=== PATIENT | male | born 1945 | race Caucasian/White ===

== ENCOUNTER 2020-04-13 13:18 | Outpatient (CLI) | payer MEDICARE, BC, SELFPAY ==
--- NOTE | 2020-04-13 13:27 | XR_ITS ---
WS: [id number] CERVICAL SPINE 3 VIEWS HISTORY: SPINAL STENOSIS, CERVICAL REGION COMPARISON: None available. Mild straightening of the normal cervical lordosis. C2 anterolisthesis by 3.4 mm. Prior anterior cerv ical fusion with interbody spacer at C6-7. Large bridging hypertrophic osteophytes along the anterior cervical spine from C3 to C5 extends over a length of 5.1 cm. There is mild disc space narrowing at C3-4, C4-5 and C5-6. Lateral masses of C1 and C2 are aligned. Odontoid is intact. Soft tissues are normal. XR/XR cervical spine 3V* [id number] IMPRESSION: 1. Intact anterior cervical fusion with interbody spacer at C6-7. 2. Large bridging hypertrophic osteophytes along the anterior longitudinal lig ament from C3 to C5. 3. C2 anterolisthesis by 3.4 mm.
== END 2020-04-13 13:19 | disposition home or self-care (01) ==
LOC: RADWPI 13:24
PROVIDERS: PCP Family Medicine; Visit Provider Physician Assistant
DX: M48.02 Spinal stenosis, cervical region (principal); M43.22 Fusion of spine, cervical region; M25.78 Osteophyte, vertebrae
CPT/HCPCS: 72040

== ENCOUNTER 2020-06-03 08:45 | Outpatient (CLI) | payer MEDICARE, BC, SELFPAY ==
[2020-06-03 09:18] VITALS: BMI 31.3
--- NOTE | 2020-06-03 09:18 | ECG_ITS ---
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 Interpretive Statements Lexiscan/sestamibi/sestamibi stress test: PROCEDURE: At the baseline, the EKG revealed normal sinus rhythm with incomplete right bundle branch block pattern. No significant ST-T changes. The baseline blood pressure was 146/77 mm Hg with a heart rate of 68 beats/min. Lexiscan was infused over a period of 20 seconds. A total of 0.4 milligrams of Lexiscan was infused. The stress phase was continued for a total of 5 minutes. Heart rate at the end of the stress phase was 77 with a blood pressure 128/70. The EKG at the peak infusion revealed no significant changes. Sestamibi was injected 20 seconds after the Lexiscan infusion. Blood pressure at the end of the recovery phase was 144/71 with a heart rate of 77 per minute. CONCLUSION: 1. No significant EKG changes with the LexiScan infusion 2. No LexiScan induced chest pain or cardiac arrhythmia 3. Normal blood pressure and heart rate response 4. Sestamibi/sestamibi perfusion scan pending; see separate report. Electronically Signed On 06-03-2020 20:28:34 PERSONNEL ASSOCIATE by Zack Shelby M.D. [email or web address]
--- NOTE | 2020-06-03 09:19 | NMCV_ITS ---
NM sumeet perf SPECT r/s* [id number] Magen Juarez Age: 74 Gender: M : 1945 Exam Date: 06/03/2020 10:41 Ordering Phys: Murali Cummings MD Technologist: LENNOX Ayon Exam Location: [facility] Indications: WORSENING DYSPNEA ON EXERTION STRESS TEST Please see separate stress test report in [facility] for full findings IMAGE PROTOCOL Rest/Stress 1 Lexiscan Day Radiopharmaceutical Dose (mCi) Administration Site Administered by Rest: Tc-99m 10.8 IV LENNOX Torres Sestamibi Stress:Tc-99m 32.4 IV LENNOX Torres Sestamibi Rest: 03-Jun-2020 60 Discovery 630 Stress: 03-Jun-2020 30 Discovery 630 0.4mg Lexiscan. Supine position only as patient was unable to lay prone. SPECT RESULTS Technical Quality: Good Raw Data Analysis: Normal Image Corrections: Patient motion artifact - motion correction applied to stress images. Summed Stress Score: 4 Summed Rest Score: 0 Summed Difference Score: 4 PERFUSION FINDINGS Moderate area of decreased aseptic was noted in the basal and mid inferolateral , mid inferior segments. Significant reversibility was noted in these regions at rest. FUNCTIONAL RESULTS (calculated via Gated SPECT) Stress Image LV EF (%): 83 Stress EDV (mL):66 TID: 0.97 Stress ESV (mL):11 FUNCTIONAL FINDINGS: Segmental wall motion analysis revealing no significant wall motion normalities. IMPRESSIONS 1. Myocardial perfusion imaging revealing a moderate area of reversible defect in the inferolateral region, suggestive of ischemia in the distribution of the left circumflex artery. 2. Normal LV ejection fraction of 83%. 3. LV wall motion analysis revealing no gross wall motion normalities. 4. Normal LV volume. No similar previous studies are available for comparison Dr Zack Shelby MD [facility] (Electronically Signed) Final Date: 09 June 2020 02:00 S
[2020-06-03 11:08] VITALS: BP 147/66; PULSE 89
[2020-06-03] MEDS: regadenoson 0.4 Mg/5 ml Syringe IVP (11:08)
== END 2020-06-03 08:46 | disposition home or self-care (01) ==
LOC: CDL 08:48
PROVIDERS: PCP Family Medicine; Visit Provider Family Medicine
DX: R06.09 Other forms of dyspnea (principal)
CPT/HCPCS: 78452; 93017; A9500; J2785

== ENCOUNTER → 2020-06-13 10:28 | Outpatient (BNVA) | payer MEDICARE, BC, SELFPAY | PROVIDERS: PCP Family Medicine; Visit Provider Internal Medicine | DX: Z20.828 Contact with and (suspected) exposure to other viral communicable diseases (principal); Z01.812 Encounter for preprocedural laboratory examination | CPT/HCPCS: 87635 ==

== ENCOUNTER 2020-06-15 08:31 | Outpatient (CLI) | payer MEDICARE, BC, SELFPAY ==
[2020-06-15 09:57] LABS: Basophils # 0.1 10^3/uL (0.0-0.1); Basophils % 1.1 %; Eosinophils # 0.3 10^3/uL (0.0-0.8); Eosinophils % 4.4 %; Hematocrit 47.6 % (42.0-52.0); Hemoglobin 15.2 g/dL (11.7-16.6); Lymphocytes % 32.4 %; Mean Corpuscular HGB Conc 31.9 g/dL (30.0-36.0); Mean Corpuscular Hemoglobin 29.1 pg (28.0-34.0); Mean Corpuscular Volume 91.2 fL (80-94); Mean Platelet Volume 9.8 fL (7.4-10.4); Monocytes # 0.6 10^3/uL (0.2-0.9); Monocytes % 9.7 %; Neutrophils # 3.29 10^3/uL (1.8-7.7); Neutrophils % 52.2 %; Nucleated Red Blood Cells % 0 %; Platelet Count 219 10^3/cmm (130-400); Red Blood Count 5.22 10^6/uL (4.1-5.3); Red Cell Distribution Width 13.4 % (12.1-15.1); White Blood Count 6.3 10^3/uL (4.0-10.0)
[2020-06-15 10:05] LABS: INR 0.95 (0.8-1.2)
[2020-06-15 10:13] LABS: Anion Gap 14.3 (5-19); Blood Urea Nitrogen 19 mg/dL (8-23); Calcium 9.5 mg/dL (8.5-10.5); Carbon Dioxide 29 mmol/L (22-29); Chloride 103 mmol/L (98-107); Glucose 107 mg/dL (65-115); Osmolality Calculated 297 mOsm/kg (285-295); Potassium 4.3 mmol/L (3.5-5.1); Sodium 142 mmol/L (136-145)
== END 2020-06-15 08:32 | disposition home or self-care (01) ==
PROVIDERS: PCP Family Medicine; Visit Provider Internal Medicine
DX: R06.02 Shortness of breath (principal); R07.9 Chest pain, unspecified
CPT/HCPCS: 36415; 80048; 85025; 85610

== ENCOUNTER 2020-06-16 07:10 | Day surgery (SDC) | payer MEDICARE, BC, SELFPAY ==
[2020-06-16] VITALS (20 sets, daily range): BP systolic 97–144; BP diastolic 60–87; PULSE 59–83; RESP 12–20; TEMP 36.5–36.7; O2SAT 92–98; BMI 31.0
--- NOTE | 2020-06-16 07:30 | XACV_ITS ---
Exam Room: 1 Ht: 170 cm Wt: 90 kg BSA: 2.09 m2 Gender: Male : 1945 Any Known Allergies: No known allergies Exam Priority: Routine Procedure(s): Procedure Description: Diagnostic procedure Procedure Description: PCI procedure Procedure Description: Drug Eluting Coronary Stent Procedure Description: PTCA Procedure Description: Coronary Angiography Diagnostic Cath Status: Elective Diagnostic Findings * LAD has luminal irregularities.. * RCA arises from right coronary cusp. It has luminal irregularities however no significant stenosis seen. . * Left circumflex artery arises from left main artery. It gives rise to 2 OM branches. At bifurcation of left circumflex artery and OM 2, there is severe 70% stenosis in mid left circumflex artery. Ostial OM 2 also has 60 to 70% stenosis. Mid Circumflex Coronary Artery: Moderate 70% stenosis, JAMES: 0 flow. * Second * obtuse Marginal Branch Segment: Moderate 60% stenosis, JAMES: 0 flow. * LM has 0% stenosis. * Coronary angiography shows right dominance. PCI Status: Elective PCI Indication: New Onset Angina <= 2 months Interventional Findings * We engaged the left main artery using XB 3.5 guide catheter. A 0.014 run-through guidewire was used to cross the mid left circumflex stenosis and was put in distal OM 3 branch. A 0.014 BMW guidewire was used to cross the ostial OM 2 stenosis and was put in the distal branch. We used a 2.5 x 8 mm semicompliant balloon to predilate the mid left circumflex stenosis. This was followed by placement of 3.0 x 15 mm resolute [place] TARA. Ostial OM1 stenosis was then treated using a 2.0 x 8 mm semicompliant balloon. At this time final angiogram was performed that showed excellent stent expansion no residual stenosis and JAMES-3 flow. Ostial OM 2 stenosis was significantly improved and there was JAMES-3 flow in the vessel. Guidewires were removed. Guide catheter was removed. TR band was applied to achieve hemostasis. Patient left the Freight Forwarder in stable condition.. * Mid Circumflex Coronary Artery: 70% stenosis treated with AB TREK 2.50X8 RX BALLOON and MDT R BUDDY 3.0X15 TARA. 0% residual stenosis, JAMES: 3 flow. * First Obtuse Marginal Branch Segment: 60% stenosis treated with AB MINI TREK 2.00X8 RX BALLOON. 0% residual stenosis, JAMES: 3 flow. Conclusions 1. There is severe coronary artery disease with mid left circumflex stenosis. This correlated with abnormal stress test territory. 2. Mid Circumflex Coronary Artery was treated with Balloon and Drug Eluting Stent. 3. First Obtuse Marginal Branch Segment was treated with Balloon. Recommendations * Continue aspirin and plavix for atleast 1 year. * High intensity statin therapy. * Beta rayne. * Patient will need to postpone his knee surgery. Will discuss the appropriate time for surgery as patient needs Dual antiplatelet therapy. Interventional RX Recommendation: PCI w/o planned CABG Diagnostic RX Recommendation: PCI w/o planned CABG Anticoagulation: Heparin Pressures Phase:Rest AO : 133 / 83 ( 107 ) @ 2:02:00 AM 129 / 79 ( 103 ) @ 2:04:00 AM 148 / 62 ( 104 ) @ 2:13:00 AM 138 / 134 ( 103 ) @ 2:15:00 AM 142 / 80 ( 109 ) @ 2:16:00 AM 128 / 74 ( 98 ) @ 2:21:00 AM 128 / 73 ( 97 ) @ 2:33:00 AM 146 / 127 ( 114 ) @ 2:38:00 AM 130 / 80 ( 99 ) @ 2:41:00 AM 113 / 112 ( 91 ) @ 2:50:00 AM 136 / 80 ( 107 ) @ 2:52:00 AM Clinical Evaluation EBL: 5mL-10mL Procedural Details Procedure Consent Obtained. Current Diagnosis : Chest Pain. Pre-Procedure Time Out. Identified patient by full name and date of as verbalized by the patient/guarantor. Does the consent match the physician's order: Yes. Accurate & Complete Informed Consent: Yes. Inpatient/Outpatient History & Physical on Chart: Yes. If H&P is completed, is and addenduem needed: No; If yes, is the addendum complete: N/A. Visualize and Verify Site with Patient/Guarantor: N/A. Relevant Radiology Images available: Yes. Pre-op teaching completed and patient verbalized understanding. The risks, benefits, and alternatives of sedation and/or procedure were discussed by physician. The patient agrees to continue. Procedure started. [facility] Clinical Fraility Score: 3: Managing Well. Freight Forwarder Indications: Suspected CAD. Chest Pain Symptom Assessment: Typical Angina Symptoms. Correct patient, site and procedure confirmed by cath team. Current diagnosis: Chest Pain. PERRLA. Strong, equal hand board layer bilaterally. Lungs clear x 5 lobes. IV Site on Arrival: 20 gauge in the left anticubital. IV Fluids: 0.9% NaCl at KVO. 0 mL infused prior to cardiac catheterization technician. Pre Procedural Pulses: bilateral posterior tibial was 3+. Pre Procedural Pulses: bilateral dorsalis pedis was 3+. Pre Procedural Pulses: bilateral radial was 3+. Oxygen started at 2liters/min via nasal canula. right groin was prepped with chloroprep then draped in the usual sterile fashion. right radial was prepped with chloroprep then draped in the usual sterile fashion. Baseline sample Acquired. HR: 104 BPM. Physician arrived. Physician scrubbed in. Immediate Pre-Procedure Time Out. Correct Patient: Yes; Correct Procedure: Yes; Correct Site: Yes; Correct Patient Position: Yes; Correct Supplies: Yes; Dried Flammable Prep: Yes; Blood Products Available: N/A;. Lidocaine 1% infiltrated to the right radial. Arterial access obtained. 5 mL contrast hand injection performed through the radial sheath. A 5 niuean TIG catheter in over glidewire. Inventory is TR Glidewire Angled Stiff Shaft .035 260cm. Multiple views taken of left coronary artery. Catheter redirected to the RCA. Multiple views taken of right coronary artery. Catheter removed over the exchange wire. Sheath upsized to a 6 Fr. Physician review of cine films. 6 niuean XB 3.5 guide catheter was inserted over the wire. Runthrough guidewire was advanced through the guide catheter to lesion in the mid Circ. Patient's family updated. BMW guidewire was advanced through the guide catheter to lesion in the OM. Inflation number : 1 A AB TREK 2.50X8 RX BALLOON was prepped and advanced across the Mid CX , then inflated to 12 JODI for 0:25 seconds. Inflation number: 2 The AB TREK 2.50X8 RX BALLOON was reinflated across the Mid CX, to 14 JODI for 0:22 seconds. Intact stent and BMW wire out. BMW guidewire was advanced through the guide catheter to lesion in the OM. BMW wire pulled back in the catheter. Inflation Number : 3 A MOI Purvis BUDDY 3.0X15 TARA -Lot Number# _[id number] Exp: 03/04/2022 was prepped and advanced across the Mid CX. The stent was deployed at 12 JODI for 0:30 seconds. Stent balloon out over wire. BMW guidewire was advanced through the guide catheter to lesion in the OM. Trek 2.5x8 balloon inserted OTW. Runthough wire out. Balloon out. Inflation number : 1 A AB MINI TREK 2.00X8 RX BALLOON was prepped and advanced across the 1st Ob Afua , then inflated to 10 JODI for 0:33 seconds. Results checked. Results checked. Physician review of cine films. The sheath flushed with heparnized saline periodically to maintain patency. Balloon out. Wire out. Guide catheter out. Dr. Tolentino scrubbed out. TR band placed. Hemostasis obtained. Post Procedure: Pulses reassessed and unchanged. PERRLA. Strong, equal hand board layer bilaterally. No VTE prophylaxis required. Medication's Wasted: Lidocaine 1% = 18 mL. Medication's Wasted: Nitro = 49.8 mcg. Medication's Wasted: Heparin = 1000 units. Total IV fluids: 100 mL. Contrast type used: Omnipaque 300 mgI/mL, 500 mL bottle. A TR Band was successful obtaining hemostatsis at the Radial artery insertion site. Post-op diagnosis: Stent to Mid CX. Complications: None. Estimated blood loss: 5mL-10mL. Procedure completed. Patient transferred by wheelchair to CPRU. Vital chart was stopped. Access Site Site: Radial artery Sheath Size: 5 Fr Hemostasis Method: TR Band Hemostasis Success: Successful Procedure Medications Start: 7:46 AM Stop: 7:46 AM Medication: Versed Amount: 1 mg Route: I.V. Start: 7:46 AM Stop: 7:46 AM Medication: Fentanyl Amount: 50 mcg Route: I.V. Start: 7:54 AM Stop: 7:54 AM Medication: Verapamil Amount: 5 mg Route: I.A. Start: 7:54 AM Stop: 7:54 AM Medication: Nitrogylcerin Amount: 200 mcg Route: I.A. Start: 7:58 AM Stop: 7:58 AM Medication: Heparin Amount: 3000 units Route: I.V. Start: 8:12 AM Stop: 8:12 AM Medication: Heparin Amount: 6000 units Route: I.V. Start: 8:12 AM Stop: 8:12 AM Medication: Versed Amount: 1 mg Route: I.V. Start: 8:29 AM Stop: 8:29 AM Medication: Fentanyl Amount: 50 mcg Route: I.V. Start: 8:33 AM Stop: 8:33 AM Medication: Heparin Amount: 15356 units Route: I.V. Start: 8:41 AM Stop: 8:41 AM Medication: Versed Amount: 1 mg Route: I.V. Start: 8:48 AM Stop: 8:48 AM Medication: Nitrogylcerin Amount: 200 mcg Route: I.C. Start: 8:50 AM Stop: 8:50 AM Medication: Versed Amount: 1 mg Route: I.V. Start: 8:56 AM Stop: 8:56 AM Medication: 0.9% Saline Amount: 275 ml/hr Route: I.V. drip Start: 8:56 AM Stop: 8:56 AM Medication: Plavix Amount: 600 mg Route: P.O. I, the attending physician, have reviewed and verified all procedure medications. Yes, all medications given per verbal order History/Risk Factors Hypertension: Yes Dyslipidemia: No Peripheral Arterial Disease (PAD): No Myocardial Infarction (AL): No Obesity: No Renal Disease: No Tobacco Use: Never Prior Interventions PCI: No CABG: No Valve Surgery: No Report Signatures Finalized by Kishor Tolentino MD on 06/21/2020 06:17 PM
[2020-06-16] MEDS: diphenhydrAMINE 50 mg Capsule PO (07:35)
--- NOTE | 2020-06-16 07:40 | W.PM.OPSUD ---
Surgery/Procedure H&P Update DATE OF PROCEDURE: June 16, 2020 DATE H&P PERFORMED: 06/09/20 H&P UPDATE INFORMATION: I have reviewed H&P completed within last 30 days, I have examined patient prior to procedure and No changes to prior documentation PREOP DIAGNOSIS: Worsening angina/abnormal stress test PRIMARY INDICATION FOR PROCEDURE: Worsening angina/abnormal stress test PLANNED PROCEDURE: Operation Date: 06/16/20 08:30 Proposed Procedures p Left Cardiac Catheterization 90548 R07.89(Left) - Kishor Tolentino M.D PATIENT REASSESSED PRIOR TO SEDATION, WITH NO CHANGE NOTED: No PHYSICAL EXAM: alert, oriented x 3, clear to auscultation bilaterally and regular rate & rhythm AIRWAY EVAL/ANESTHESIA PLAN: ASA II, Risks, benefits & alternatives of sedation and/or procedure discussed and Patient agrees to continue as planned
--- NOTE | 2020-06-16 09:00 | SUR.PHASEI ---
POST OP FLUIDS NS AT 100ML/HR
--- NOTE | 2020-06-16 09:00 | SUR.PHASEI ---
POST CATH NOTE RECEIVED THE PATIENT BACK FROM THE FIELD TECHNICIAN VIA WHEELCHAIR POST INTERVENTION OF THE MID CX. PATIENT AMBULATED WITH THE USE OF HIS CANE TO THE BED. COMPUTER OPERATIONS ANALYST PLACED AND VITAL SIGNS OBTAINED. TR BAND INTACT TO THE RIGHT RADIAL. NO BLEEDING OR HEMATOMA NOTED. SITE SOFT WITH PALPABLE PULSE. PATIENT ALERT BUT DROWSY FROM SEDATION. WAKES UP EASILY TO VERBAL STIMULI. NO OTHER ASSESSMENT CHANGES NOTED FROM PRE CATH ASSESSMENT. DR DOVE AT BEDSIDE TO UPDATE PATIENT. WILL CONTINUE TO MONITOR.
--- NOTE | 2020-06-16 10:00 | SUR.PHASEI ---
TR BAND LETTING THE AIR OUT OF THE TR BAND PER PROTOCOL. NO OTHER CHANGES NOTED AT THIS TIME.
--- NOTE | 2020-06-16 10:02 | SUR.PHASEI ---
SPOUSE UPDATED THE PATIENT'S SPOUSE, YRIS, WAS CALLED AND NOTIFIED OF THE CURRENT VISITING TIMES.
--- NOTE | 2020-06-16 10:08 | SUR.PHASEI ---
AMBULATED TO RESTROOM
--- NOTE | 2020-06-16 11:05 | SUR.PHASEI ---
TR BAND REMOVAL THE PATIENT AMBULATED TO THE RESTROOM. ONCE BACK TO THE ROOM THE TR BAND WAS REMOVED WITH NO BLEEDING OR HEMATOMA NOTED. SITE CLEANSED WITH WARM WATER AND PATTED DRY. A LARGE BAND AID WAS APPLIED TO THE WRIST AND SECURED LIGHTLY WITH COBAN. THE PATIENT TOLERATED WELL AND IS NOW UP AT THE BEDSIDE EATING LUNCH. POST TR BAND REMOVAL ACTIVITY INSTRUCTION RE ITERATED TO THE PATIENT WITH HIS VERBALIZATION OF UNDERSTANDING.
--- NOTE | 2020-06-16 12:26 | SUR.PHASEI ---
SPOUSE AT BEDSIDE UPDATE GIVEN TO THE PATIENT AND SPOUSE ABOUT TRANSFER TO ANOTHER ROOM WHEN A BED BECOMES AVAILABLE.
--- NOTE | 2020-06-16 16:02 | SUR.PHASEI ---
ROUNDING NOTE NO ASSESSMENT CHANGES NOTED THROUGHOUT THE AFTERNOON. PATIENT HAS BEEN UP AMBULATING SEVERAL TIMES TO THE RESTROOM. VITAL SIGNS AND RIGHT WRIST HAVE REMAINED STABLE. WILL TRANSFER TO ROOM 254-1 SOON THE ROOM IS CLEAN. SPOUSE AT BEDSIDE.
--- NOTE | 2020-06-16 16:16 | SUR.PHASEI ---
REPORT CALLED REPORT CALLED TO TATIANA CHE. PATIENT THEN TRANSFERRED TO [facility] VIA WHEELCHAIR. DR DOVE NOTIFIED OF THE ROOM ASSIGNMENT.
[2020-06-16] MEDS: atorvastatin 40 mg Tablet PO (20:44)
--- NOTE | 2020-06-17 05:15 | PC.NURSE ---
Summary Patient rested very well through out night. No pain. Voided in urinal 3x. No complaints.
[2020-06-17 05:43] VITALS: PULSE 71
[2020-06-17 05:45] LABS: Basophils # 0.1 10^3/uL (0.0-0.1); Basophils % 0.7 %; Eosinophils # 0.3 10^3/uL (0.0-0.8); Eosinophils % 3.8 %; Hematocrit 47.5 % (42.0-52.0); Hemoglobin 15.2 g/dL (11.7-16.6); Lymphocytes # 1.7 10^3/uL (0.8-4.8); Lymphocytes % 23.1 %; Mean Corpuscular Hemoglobin 29.1 pg (28.0-34.0); Mean Corpuscular Volume 90.8 fL (80-94); Mean Platelet Volume 9.9 fL (7.4-10.4); Monocytes # 0.8 10^3/uL (0.2-0.9); Monocytes % 10.4 %; Neutrophils # 4.43 10^3/uL (1.8-7.7); Neutrophils % 61.7 %; Nucleated Red Blood Cells % 0 %; Platelet Count 202 10^3/cmm (130-400); Red Blood Count 5.23 10^6/uL (4.1-5.3); Red Cell Distribution Width 13.6 % (12.1-15.1); White Blood Count 7.2 10^3/uL (4.0-10.0)
[2020-06-17 06:22] LABS: Blood Urea Nitrogen 15 mg/dL (8-23); Carbon Dioxide 28 mmol/L (22-29); Chloride 102 mmol/L (98-107); Sodium 139 mmol/L (136-145)
[2020-06-17 06:23] LABS: Calcium 9.3 mg/dL (8.5-10.5); Glucose 96 mg/dL (65-115); Osmolality Calculated 289 mOsm/kg (285-295)
[2020-06-17 07:52] VITALS: BP 117/75; PULSE 69; RESP 18; TEMP 36.9; O2SAT 97
--- NOTE | 2020-06-17 08:59 | P.SS_ITS ---
Short Stay Summary Providers Date of Admit/Discharge: 06/17/20 Attending Provider: Kishor Tolentino M.D Primary Care Provider: Murali Cummings MD Chief Complaint: Left Cardiac Catheterization HPI History of Present Illness Magen Juarez is a 74 year old male with past medical history of hypertension, former smoker who was referred to cardiology by his PCP, Dr Cummings. Patient was experiencing worsening shortness of breath and chest pressure over the last 3 to 4 weeks. Nuclear stress test was performed that showed ischemia in inferolateral wall. Patient underwent coronary angiography from right radial access yesterday that showed severe stenosis of the mid left circumflex artery/OM corresponding to the ischemic region on the stress test. He underwent successful revascularization with TARA X 1. Ostial OM lesion underwent balloon angioplasty. Patient did well post PCI and was discharged on post procedure day in a stable condition. Patient had a scheduled elective knee replacement surgery. Surgery will need to be postponed by atleast 6 months as patient needs dual antiplatelet agents for that duration. We will follow patient in the office. Review of Systems General: Reports: 10 or more systems reviewed and unremarkable except in HPI and below Const: Denies: fever(s), chills, body aches or fatigue Eyes: Denies: change in vision or blurry vision ENMT: Denies: throat pain or odynophagia Card: Reports: chest pain, lightheadedness and dyspnea on exertion; Denies: palpitations, irregular heart rhythm, swelling of feet/ankles, syncope, orthopnea or leg pain with exertion Resp: Denies: dyspnea, productive cough, non-productive cough or wheezing GI: Denies: nausea, vomiting or heartburn Musc: Denies: neck pain, back pain or joint pain Skin/Breast: Denies: rash or pruritus Neuro: Reports: dizziness; Denies: headache(s), numbness in extremities, weakness in extremities or vertigo Psych: Denies: anxiety or depression Bernardo/Lymph: Denies: easy bruising or easy bleeding Home Meds/Allergies Home Medications and Allergies Home Medications Medication Instructions Recorded Confirmed Type cetirizine 10 mg capsule 10 mg PO DAILY cap 06/09/20 06/15/20 History lisinopril 20 1 tab PO DAILY 06/09/20 06/15/20 History mg-hydrochlorothiazide 12.5 mg tablet pantoprazole 40 mg tablet,delayed 40 mg PO DAILY 06/09/20 06/15/20 History release Allergies Allergy/AdvReac Type Severity Reaction Status Date / Time No Known Allergies Allergy Verified 06/16/20 07:48 PFSH Acute PFSH: Medical History Hypertension Obesity Obstructive sleep apnea Surgical History History of carpal tunnel surgery History of knee replacement Family History Father CAD (coronary artery disease) Mother CAD (coronary artery disease) Social History Smoking and tobacco status: former smoker Vitals/I&O/Wt Last Vital Signs Temp 98.5 F 06/17/20 07:52 Pulse 69 06/17/20 07:52 Resp 18 06/17/20 07:52 BP 117/75 06/17/20 07:52 Pulse Ox 97 06/17/20 07:52 06/16/20 06/17/20 06/17/20 22:59 06:59 14:59 Intake Total 1870 / 1870 Output Total 425 / 425 750 / 1175 Balance 1445 / 1445 -750 / 695 Weight last 48 hrs Weight 198 lb Physical Exam Const: COMMON NORMALS: no acute distress and patient oriented x3 HENMT: COMMON NORMALS: normocephalic HEAD & SCALP: normocephalic Eye: COMMON NORMALS: Equal, round and reactive pupils present PUPIL: Yes Equal, round and reactive pupils present Resp: COMMON NORMALS: normal respiratory effort and clear to auscultation bilaterally AUSCULTATION: clear to auscultation bilaterally Cardio: COMMON NORMALS: regular rate, regular rhythm, S1 normal heart sound present, S2 normal heart sound present and No murmurs present (Cardio) RATE: regular rate RHYTHM: regular rhythm HEART SOUNDS: S1 normal heart sound present and S2 normal heart sound present GI: COMMON NORMALS: Normal to inspection, nondistended, normoactive bowel sounds present, Soft to palpation and non-tender PALPATION: Yes Soft to palpation Extremity: COMMON NORMALS: normal to inspection and no pedal edema Neuro: COMMON NORMALS: patient oriented x3 Psych: COMMON NORMALS: mental status grossly normal and cooperative SSS Data Data Completed and Pending: Pending at discharge Category Date Time Status MANAGER CORPORATE RESPONSIBILITY request for service Routin e Exams 06/16/20 07:30 Taken Discharge Plan Discharge Patient Disposition: Home Condition: Stable Prescriptions: New atorvastatin 40 mg Tablet 40 mg PO BEDTIME Qty: 90 RF: 3 clopidogrel 75 mg Tablet 75 mg PO DAILY Qty: 90 RF: 3 Continued pantoprazole 40 mg tablet,delayed release (DR/EC) 40 mg PO DAILY RF: 0 lisinopril-hydrochlorothiazide 20-12.5 mg tablet 1 tab PO DAILY RF: 0 All Day Allergy (cetirizine) 10 mg capsule 10 mg PO DAILY RF: 0 aspirin [Adult Aspirin Regimen] 81 mg tablet,delayed release (DR/EC) 81 mg PO DAILY Qty: 30 RF: 2 Discharge Orders: Discharge Order (Routine); Ordered 06/17/20 Ordered By: Kishor Tolentino Referrals: Kishor Tolentino M.D [Physician] - 06/25/20 3:15 pm (After your appointment you will make another appointment to follow up in 1 month.) Discharge Diet: Cardiac Discharge Activity: Increase activity as tolerated Patient Instructions: Atorvastatin (By mouth), Clopidogrel (By mouth), Left Heart Catheterization (DC), Coronary Angioplasty (DC) Activity Restrictions/Additional Instructions: Please do not lift more than 5 pounds of weight for the next 5 days Attestations Medical Necessity Statement*: Care not expected to cross 2 midnights. Patient is s/p PCI and will be discharged today Time Spent in Patient Care*: greater than 30 min Quality Metrics Clinical Quality Measures: During this hospital stay, did patient experience: None Coding Level of Care Code Acute Rotary Kiln Operator for Andrew Stern
[2020-06-17] MEDS: clopidogrel 75 mg Tablet PO (09:01)
[2020-06-17] MEDS: cetirizine 10 mg Tablet PO (09:01)
[2020-06-17] MEDS: pantoprazole DR 40 mg Tablet PO (09:01)
[2020-06-17] MEDS: lisinopril 20 mg Tablet PO (09:01)
[2020-06-17] MEDS: aspirin 81 mg EC Tablet PO (09:01)
[2020-06-17] MEDS: hydroCHLOROthiazide 25 mg Tablet 12.5 MG PO (09:01)
[2020-06-17 10:39] VITALS: RESP 18
== END 2020-06-17 11:00 | disposition home or self-care (01) ==
LOC: CCL 07:13 → MEDSURG 16:26
PROVIDERS: PCP Family Medicine; Visit Provider Internal Medicine
DX: I25.10 Atherosclerotic heart disease of native coronary artery without angina pectoris (principal); R94.39 Abnormal result of other cardiovascular function study; Z87.891 Personal history of nicotine dependence; G47.33 Obstructive sleep apnea (adult) (pediatric); E66.9 Obesity, unspecified; Z68.31 Body mass index [BMI] 31.0-31.9, adult; Z82.49 Family history of ischemic heart disease and other diseases of the circulatory system
CPT/HCPCS: 12345; 36415; 80048; 85025; 93454; C1725; C1769; C1874; C1887; C1894; C9600; J1644; J2250; J3010; J3490; J7030; Q0163; Q9967

== ENCOUNTER 2020-08-18 07:54 | Outpatient (CLI) | payer MEDICARE, BC, SELFPAY ==
--- NOTE | 2020-08-18 08:02 | MR_ITS ---
WS: [id number] MRI BRAIN WITH HIGH-RESOLUTION IMAGING THROUGH THE INTERNAL AUDITORY CANALS WITHOUT AND WITH CONTRAST HISTORY: myokymia of middle ear, right ear tinnitus. COMPARISON: None available. TECHNIQUE: Multiplanar, multisequence imaging is performed through the brain. Additional 3 mm imaging performed in multiple planes through the internal auditory canal. Postcontrast imaging with 18 ml's of MultiHance. No acute intracranial hemorrhage, midline shift, edema or mass effect. Very mild atrophy and mild chronic microvascular ischemic disease. No prior infarcts. No enhancing ma sses within the brain. On the precontrast T1 sequences there is an ovoid mass in the intraorbital segment of the RIGHT optic nerve. This is intensely enhancing mass on the postcontrast sequences measuring 9 x 5 mm. Mass is in separable from the posterior and lateral optic nerve sheath. There is displacement of the optic nerve medially. No associated hemorrhage is identified. No significant enhancement or additional changes i n the optic nerve. A small portion abuts the superior ophthalmic vein. Ventricles and extra-axial spaces are normal. No inferior displacement of cerebellar tonsils. Clivus and pituitary gland are normal. Internal and external auditory canals: Unremarkable. Cranial nerves VII and VIII complexes: Unremarkable. No enhancement or mass. Cerebellopontine angles: Normal. Paranasal sinuses: Normal. Mastoid air cells: Normal. Calvarium and scalp: Normal. Visualized [place] and dural venous sinuses demonstrate no abnormality. MR/MR iac's wo/w con* 20000 IMPRESSION: 1. No abnormality of the internal auditory canals or cerebellopontine angles. 2. 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 Differential includes meningioma glioma and metastatic disease. Rec ommend additional evaluation by ophthalmology.
[2020-08-18] MEDS: gadobenate dimeglumine 20 mL vial IV (08:49)
== END 2020-08-18 07:55 | disposition home or self-care (01) ==
LOC: RADWPI 07:58
PROVIDERS: PCP Family Medicine; Visit Provider Otolaryngology
DX: H93.19 Tinnitus, unspecified ear (principal); R22.0 Localized swelling, mass and lump, head
CPT/HCPCS: 70553; A9577

== ENCOUNTER 2021-08-12 15:48 | Outpatient (CLI) | payer MEDICARE, BC, SELFPAY ==
--- NOTE | 2021-08-12 | FL_ITS ---
WS: [id number] MODIFIED BARIUM SWALLOW HISTORY: Other dysphagia FLUOROSCOPY TIME: 1.3 minutes. Modified barium swallow was performed by the speech pathologist. Fluoroscopy was provided with the pa tient in a lateral projection. Multiple food consistencies were provided. Patient swallowed all food consistencies without aspiration or laryngeal penetration. Barium tablet w as swallowed without difficulty. There are very large anterior osteophytes along the cervical vertebrae encroaching into the posterior cervical esophagus. FL/FL barium swallow modifd 65274 IMPRESSION: 1. No aspiration or laryngeal penetration. Patient swallowed all food without difficulty. Please see speech therapist report also for recommendations.
== END 2021-08-12 15:49 | disposition home or self-care (01) ==
LOC: RAD 15:54
PROVIDERS: PCP Family Medicine; Visit Provider Family Medicine
DX: R13.10 Dysphagia, unspecified (principal)
CPT/HCPCS: 74230; 92611

== ENCOUNTER → 2022-01-31 12:47 | Outpatient (BNVA) | payer MEDICARE, BC, SELFPAY | PROVIDERS: PCP Family Medicine; Visit Provider Internal Medicine | DX: I10 Essential (primary) hypertension (principal); I25.10 Atherosclerotic heart disease of native coronary artery without angina pectoris; E66.9 Obesity, unspecified; G47.33 Obstructive sleep apnea (adult) (pediatric) | CPT/HCPCS: 99213 ==

== ENCOUNTER → 2022-02-01 14:03 | Outpatient (BNVA) | payer MEDICARE, BC, SELFPAY | PROVIDERS: PCP Family Medicine; Visit Provider Otolaryngology | DX: R13.10 Dysphagia, unspecified (principal); K44.9 Diaphragmatic hernia without obstruction or gangrene; K21.9 Gastro-esophageal reflux disease without esophagitis; M25.78 Osteophyte, vertebrae; E66.9 Obesity, unspecified; Z68.33 Body mass index [BMI] 33.0-33.9, adult | CPT/HCPCS: 99214 ==

== ENCOUNTER → 2022-07-26 13:14 | Outpatient (BNVA) | payer MEDICARE, BC, SELFPAY | PROVIDERS: PCP Family Medicine; Visit Provider Otolaryngology | DX: K21.9 Gastro-esophageal reflux disease without esophagitis (principal); K44.9 Diaphragmatic hernia without obstruction or gangrene; M25.78 Osteophyte, vertebrae; Z96.641 Presence of right artificial hip joint | CPT/HCPCS: 31575; 99213 ==

== ENCOUNTER → 2022-09-05 09:58 | Outpatient (BNVA) | payer MEDICARE, BC, SELFPAY | PROVIDERS: PCP Family Medicine; Visit Provider Otolaryngology | DX: H91.93 Unspecified hearing loss, bilateral (principal) | CPT/HCPCS: 99212 ==

== ENCOUNTER → 2023-01-30 13:14 | Outpatient (BNVA) | payer MEDICARE, BC, SELFPAY | PROVIDERS: PCP Family Medicine; Visit Provider Internal Medicine | DX: I10 Essential (primary) hypertension (principal); E66.9 Obesity, unspecified; G47.33 Obstructive sleep apnea (adult) (pediatric); I25.10 Atherosclerotic heart disease of native coronary artery without angina pectoris | CPT/HCPCS: 99214 ==

== ENCOUNTER 2023-05-08 07:43 | Outpatient (RCR) | payer MEDICARE, BC, SELFPAY ==
[2023-05-04 08:01] VITALS: BMI 31.3
[2023-05-04 08:11] VITALS: BP 137/77; PULSE 75; RESP 18; TEMP 36.9; O2SAT 98
[2023-05-04] MEDS: DAPTOMYCIN IV (08:28)
[2023-05-04] MEDS: SODIUM CHLORIDE 0.9% IV (08:28)
[2023-05-05 07:52] VITALS: BP 145/84; PULSE 68; RESP 16; TEMP 36.3; O2SAT 97
[2023-05-05] MEDS: DAPTOMYCIN IV (08:06)
[2023-05-05] MEDS: SODIUM CHLORIDE 0.9% IV (08:06)
[2023-05-06 07:55] VITALS: BP 135/73; PULSE 79; RESP 17; TEMP 36.6; O2SAT 96
[2023-05-06] MEDS: SODIUM CHLORIDE 0.9% IV (07:58)
[2023-05-06] MEDS: DAPTOMYCIN IV (07:58)
[2023-05-07 07:49] VITALS: BP 139/74; PULSE 71; RESP 17; TEMP 36.6; O2SAT 97
[2023-05-07] MEDS: SODIUM CHLORIDE 0.9% IV (07:55)
[2023-05-07] MEDS: DAPTOMYCIN IV (07:55)
== END 2023-05-11 23:59 | disposition home or self-care (01) ==
LOC: OPS 07:43
PROVIDERS: PCP Family Medicine; Visit Provider Family Medicine
DX: T84.033A Mechanical loosening of internal left knee prosthetic joint, initial encounter (principal); Z79.2 Long term (current) use of antibiotics
CPT/HCPCS: 96365; J0878

== ENCOUNTER 2023-05-11 08:00 | Oncology outpatient (recurring) (ONCR) | payer MEDICARE, BC, SELFPAY ==
[2023-05-03 08:23] VITALS: BP 131/75; PULSE 65; RESP 18; TEMP 36.6; O2SAT 98
[2023-05-03 08:27] LABS: Basophils % 0.3 %; Eosinophils # 0.8 10^3/uL (0.0-0.8); Eosinophils % 9.1 %; Hematocrit 34.7 % (37-53); Lymphocytes # 1.4 10^3/uL (0.8-4.8); Lymphocytes % 16.3 %; Mean Corpuscular HGB Conc 31.7 g/dL (30-55); Mean Corpuscular Hemoglobin 27.1 pg (27-33); Mean Corpuscular Volume 85.5 fl (82-101); Mean Platelet Volume 9.2 fL (7.4-10.4); Monocytes # 0.9 10^3/uL (0.2-0.9); Monocytes % 10.2 %; Neutrophils % 63.4 %; Nucleated Red Blood Cells % 0 %; Platelet Count 203 10^3/cmm (157-399); Red Blood Count 4.06 10^6/uL (3.85-5.65); Red Cell Distribution Width 16.9 % (12.1-15.1); White Blood Count 8.69 10^3/uL (3.29-11.43)
[2023-05-03 08:34] LABS: Erythrocyte Sedimentation Rate 22 mm/hr (0-10)
[2023-05-03] MEDS: DAPTOMYCIN IV (08:40)
[2023-05-03] MEDS: SODIUM CHLORIDE 0.9% IV (08:40)
[2023-05-03 08:41] LABS: Alanine Aminotransferase 21 U/L (0-41); Albumin Level 3.6 g/dL (3.5-5.2); Alkaline Phosphatase 79 U/L (40-130); Anion Gap 11.3 (5-19); Aspartate Amino Transferase 27 U/L (0-40); Blood Urea Nitrogen 20 mg/dL (8-23); C Reactive Protein 15.5 mg/L (0.0-4.9); Calcium 8.8 mg/dL (8.5-10.5); Carbon Dioxide 28 mmol/L (22-29); Chloride 100 mmol/L (98-107); Creatine Phosphokinase 60 U/L (39-308); Globulin 2.6 g/dL (1.3-4.6); Glucose 106 mg/dL (65-115); Osmolality Calculated 283 mOsm/kg (285-295); Potassium 4.3 mmol/L (3.5-5.1); Sodium 135 mmol/L (136-145); Total Bilirubin 0.7 mg/dL (0.15-1.2); Total Protein 6.2 g/dL (6.6-8.7)
[2023-05-03 09:20] VITALS: BP 131/75; PULSE 65; RESP 18; TEMP 36.6; O2SAT 98
--- NOTE | 2023-05-03 12:24 | PC.NURSE ---
Patient and instructed by the pharmactist Abraham Marquez of the possibilty to have medications available for home infusion if agreed by the and insurance since it was a daily 6 week IV therapy with the decision to continue to use outpatient services here and where to go on the holidays and weekends.giovanni
[2023-05-08 13:15] VITALS: BP 146/65; PULSE 73; RESP 18; TEMP 36.3; O2SAT 95
[2023-05-08] MEDS: DAPTOMYCIN IV ×2 (13:16→13:29)
[2023-05-08] MEDS: SODIUM CHLORIDE 0.9% IV ×2 (13:16→13:29)
[2023-05-09 08:31] VITALS: BP 130/79; PULSE 67; RESP 18; TEMP 36.6; O2SAT 98
[2023-05-09] MEDS: SODIUM CHLORIDE 0.9% IV (08:56)
[2023-05-09] MEDS: DAPTOMYCIN IV (08:56)
[2023-05-09 09:25] VITALS: BP 124/78; PULSE 74; RESP 18; TEMP 36.6; O2SAT 98
[2023-05-10 08:30] LABS: Basophils # 0.1 10^3/uL (0.0-0.1); Basophils % 0.6 %; Eosinophils # 0.8 10^3/uL (0.0-0.8); Eosinophils % 8.8 %; Hematocrit 35.2 % (37-53); Lymphocytes # 1.6 10^3/uL (0.8-4.8); Lymphocytes % 17.5 %; Mean Corpuscular HGB Conc 30.7 g/dL (30-55); Mean Corpuscular Hemoglobin 26.9 pg (27-33); Mean Corpuscular Volume 87.8 fl (82-101); Mean Platelet Volume 9.5 fL (7.4-10.4); Monocytes # 0.7 10^3/uL (0.2-0.9); Monocytes % 7.6 %; Neutrophils # 5.92 10^3/uL (1.8-7.7); Neutrophils % 65.1 %; Nucleated Red Blood Cells % 0 %; Platelet Count 197 10^3/cmm (157-399); Red Blood Count 4.01 10^6/uL (3.85-5.65); Red Cell Distribution Width 17.4 % (12.1-15.1); White Blood Count 9.09 10^3/uL (3.29-11.43)
[2023-05-10 08:34] LABS: Erythrocyte Sedimentation Rate 14 mm/hr (0-10)
[2023-05-10] MEDS: SODIUM CHLORIDE 0.9% IV (08:37)
[2023-05-10] MEDS: DAPTOMYCIN IV (08:37)
[2023-05-10 08:49] LABS: Alanine Aminotransferase 21 U/L (0-41); Albumin Level 3.7 g/dL (3.5-5.2); Alkaline Phosphatase 107 U/L (40-130); Anion Gap 13.4 (5-19); Aspartate Amino Transferase 29 U/L (0-40); Blood Urea Nitrogen 20 mg/dL (8-23); C Reactive Protein 15.4 mg/L (0.0-4.9); Calcium 8.8 mg/dL (8.5-10.5); Carbon Dioxide 27 mmol/L (22-29); Chloride 104 mmol/L (98-107); Creatine Phosphokinase 150 U/L (39-308); Creatinine Clr Calc Pharmacy 75.0096; Globulin 2.6 g/dL (1.3-4.6); Glucose 117 mg/dL (65-115); Osmolality Calculated 294 mOsm/kg (285-295); Potassium 4.4 mmol/L (3.5-5.1); Sodium 140 mmol/L (136-145); Total Bilirubin 0.5 mg/dL (0.15-1.2); Total Protein 6.3 g/dL (6.6-8.7)
[2023-05-10 09:41] VITALS: BP 132/75; PULSE 63; O2SAT 97
[2023-05-11 08:09] VITALS: BP 135/71; PULSE 78; RESP 18; TEMP 36.6; O2SAT 98
[2023-05-11] MEDS: SODIUM CHLORIDE 0.9% IV (08:55)
[2023-05-11] MEDS: DAPTOMYCIN IV (08:55)
[2023-05-11 09:29] VITALS: BP 130/69; PULSE 71; RESP 16; TEMP 36.8; O2SAT 97
== END 2023-05-11 23:59 | disposition home or self-care (01) ==
PROVIDERS: Neurological Surgery; PCP Family Medicine; Visit Provider Student in an Organized Health Care Education/Training Program
DX: T84.033A Mechanical loosening of internal left knee prosthetic joint, initial encounter; Z79.2 Long term (current) use of antibiotics; Y79.2 Prosthetic and other implants, materials and accessory orthopedic devices associated with adverse incidents
CPT/HCPCS: 80053; 82550; 85025; 85651; 86140; 96365; J0878; J1642

== ENCOUNTER 2023-06-13 13:00 | Oncology outpatient (recurring) (ONCR) | payer MEDICARE, OTHER, SELFPAY ==
[2023-05-12 08:02] VITALS: BP 135/69; PULSE 84; RESP 16; TEMP 36.8; O2SAT 97
[2023-05-12] MEDS: DAPTOMYCIN IV (08:57)
[2023-05-12] MEDS: SODIUM CHLORIDE 0.9% IV (08:57)
[2023-05-13 08:02] VITALS: BP 138/67; PULSE 68; RESP 18; TEMP 36.8; O2SAT 97
[2023-05-13 08:06] VITALS: BP 138/67; PULSE 68; RESP 16; TEMP 36.8; O2SAT 97
[2023-05-13] MEDS: SODIUM CHLORIDE 0.9% IV (08:41)
[2023-05-13] MEDS: DAPTOMYCIN IV (08:41)
[2023-05-14 08:00] VITALS: BP 151/72; PULSE 75; RESP 18; TEMP 36.4
[2023-05-14] MEDS: DAPTOMYCIN IV (08:26)
[2023-05-14] MEDS: SODIUM CHLORIDE 0.9% IV (08:26)
[2023-05-14 09:55] VITALS: BP 145/80; PULSE 68; RESP 18; TEMP 36.5; O2SAT 98
[2023-05-15] MEDS: SODIUM CHLORIDE 0.9% IV (09:09)
[2023-05-15] MEDS: DAPTOMYCIN IV (09:09)
[2023-05-16 08:08] VITALS: BP 139/72; PULSE 80; RESP 17; TEMP 36.5; O2SAT 97
[2023-05-16] MEDS: DAPTOMYCIN IV (08:25)
[2023-05-16] MEDS: SODIUM CHLORIDE 0.9% IV (08:25)
[2023-05-16 09:30] VITALS: BP 125/68; PULSE 76; RESP 17; TEMP 36.5; O2SAT 96
[2023-05-17] MEDS: DAPTOMYCIN IV (08:19)
[2023-05-17] MEDS: SODIUM CHLORIDE 0.9% IV (08:19)
[2023-05-17] MEDS: alteplase 1 mg/mL SDV 2 mL 2 MG INTRACATH (09:58)
[2023-05-17 10:30] VITALS: BP 129/79; PULSE 88; RESP 16; TEMP 36.6; O2SAT 96
[2023-05-18 08:05] VITALS: BP 125/70; PULSE 76; RESP 16; TEMP 36.3; O2SAT 98
[2023-05-18] MEDS: DAPTOMYCIN IV (08:24)
[2023-05-18] MEDS: SODIUM CHLORIDE 0.9% IV (08:24)
[2023-05-18 09:30] VITALS: BP 123/63; PULSE 68; RESP 18; TEMP 36.8; O2SAT 98
[2023-05-19 07:46] VITALS: BP 135/71; PULSE 84; RESP 18; TEMP 36.7; O2SAT 94
[2023-05-19] MEDS: SODIUM CHLORIDE 0.9% IV (08:26)
[2023-05-19] MEDS: DAPTOMYCIN IV (08:26)
[2023-05-19 09:38] VITALS: BP 115/67; PULSE 64; RESP 16; O2SAT 96
[2023-05-20 07:59] VITALS: BP 130/74; PULSE 78; RESP 17; TEMP 36.6; O2SAT 97
[2023-05-20] MEDS: SODIUM CHLORIDE 0.9% IV (08:01)
[2023-05-20] MEDS: DAPTOMYCIN IV (08:01)
[2023-05-20 09:14] VITALS: BP 131/75; PULSE 75; RESP 17; TEMP 36.6; O2SAT 97
[2023-05-21] MEDS: DAPTOMYCIN IV (08:00)
[2023-05-21] MEDS: SODIUM CHLORIDE 0.9% IV (08:00)
[2023-05-21 08:13] VITALS: BP 133/77; PULSE 70; RESP 16; TEMP 36.1; O2SAT 99
[2023-05-21 09:07] VITALS: BP 134/76; PULSE 70; RESP 16; TEMP 36.1; O2SAT 97
[2023-05-22] MEDS: DAPTOMYCIN IV (08:02)
[2023-05-22] MEDS: SODIUM CHLORIDE 0.9% IV (08:02)
[2023-05-22 09:10] VITALS: BP 146/72; PULSE 69; RESP 16; O2SAT 94
[2023-05-23 07:56] VITALS: BP 132/68; PULSE 68; RESP 18; TEMP 36; O2SAT 97
[2023-05-23] MEDS: SODIUM CHLORIDE 0.9% IV (08:27)
[2023-05-23] MEDS: DAPTOMYCIN IV (08:27)
[2023-05-23 09:18] VITALS: BP 122/72; PULSE 60; RESP 18; TEMP 36.6; O2SAT 98
[2023-05-24] MEDS: SODIUM CHLORIDE 0.9% IV (07:50)
[2023-05-24] MEDS: DAPTOMYCIN IV (07:50)
[2023-05-24 08:13] VITALS: BP 129/89; PULSE 80; RESP 16; TEMP 36.6; O2SAT 98
[2023-05-25 07:45] VITALS: BP 143/79; PULSE 79; RESP 18; TEMP 36.7; O2SAT 98
[2023-05-25] MEDS: DAPTOMYCIN IV (08:07)
[2023-05-25] MEDS: SODIUM CHLORIDE 0.9% IV (08:07)
[2023-05-26 07:48] VITALS: BP 133/73; PULSE 73; RESP 17; TEMP 36.5; O2SAT 99
[2023-05-26] MEDS: SODIUM CHLORIDE 0.9% IV (08:10)
[2023-05-26] MEDS: DAPTOMYCIN IV (08:10)
[2023-05-26 09:20] VITALS: BP 126/67; PULSE 71; RESP 16; TEMP 36.6; O2SAT 98
[2023-05-27] MEDS: DAPTOMYCIN IV (07:54)
[2023-05-27] MEDS: SODIUM CHLORIDE 0.9% IV (07:54)
[2023-05-27 08:04] VITALS: BP 144/72; PULSE 69; RESP 18; TEMP 36.5; O2SAT 98
[2023-05-27 09:08] VITALS: BP 127/72; PULSE 64; RESP 18; TEMP 36.5; O2SAT 96
[2023-05-28 07:40] VITALS: BP 126/72; PULSE 66; RESP 17; TEMP 36.6; O2SAT 98
[2023-05-28] MEDS: DAPTOMYCIN IV (07:45)
[2023-05-28] MEDS: SODIUM CHLORIDE 0.9% IV (07:45)
[2023-05-28 07:55] VITALS: BMI 31.3
[2023-05-29] MEDS: DAPTOMYCIN IV (08:02)
[2023-05-29] MEDS: SODIUM CHLORIDE 0.9% IV (08:02)
[2023-05-29 09:14] VITALS: BP 120/89; PULSE 66; RESP 17; TEMP 36.7; O2SAT 98
[2023-05-30 07:50] VITALS: BP 123/70; PULSE 70; TEMP 36.3; O2SAT 98
[2023-05-30] MEDS: DAPTOMYCIN IV (07:50)
[2023-05-30] MEDS: SODIUM CHLORIDE 0.9% IV (07:50)
[2023-05-30 08:48] VITALS: BP 130/72; PULSE 74; RESP 18; TEMP 36.4; O2SAT 98
[2023-05-30 08:49] VITALS: BP 130/72; PULSE 74; RESP 18; TEMP 36.4; O2SAT 98
[2023-05-31 08:03] VITALS: BP 161/79; PULSE 70; RESP 16; TEMP 36.6; O2SAT 98
[2023-05-31] MEDS: SODIUM CHLORIDE 0.9% IV (08:30)
[2023-05-31] MEDS: DAPTOMYCIN IV (08:30)
[2023-05-31 09:32] VITALS: BP 121/78; PULSE 74; RESP 18; TEMP 36.8; O2SAT 98
[2023-06-01 07:51] VITALS: BP 131/73; PULSE 67; RESP 16; TEMP 36.7; O2SAT 97
[2023-06-01] MEDS: SODIUM CHLORIDE 0.9% IV (07:56)
[2023-06-01] MEDS: DAPTOMYCIN IV (07:56)
[2023-06-01 08:54] VITALS: BP 149/69; TEMP 36.7; O2SAT 69
[2023-06-02] MEDS: SODIUM CHLORIDE 0.9% IV (07:55)
[2023-06-02] MEDS: DAPTOMYCIN IV (07:55)
[2023-06-02 08:02] VITALS: BP 148/74; PULSE 73; RESP 17; TEMP 36.8; O2SAT 98
[2023-06-02 09:01] VITALS: BP 148/72; PULSE 72; RESP 17; TEMP 36.7; O2SAT 96
[2023-06-03 07:47] VITALS: BP 132/82; PULSE 80; RESP 18; TEMP 36.6; O2SAT 98
[2023-06-03] MEDS: DAPTOMYCIN IV (07:59)
[2023-06-03] MEDS: SODIUM CHLORIDE 0.9% IV (07:59)
[2023-06-04] MEDS: SODIUM CHLORIDE 0.9% IV (07:53)
[2023-06-04] MEDS: DAPTOMYCIN IV (07:53)
[2023-06-04 08:01] VITALS: BP 150/82; PULSE 78; RESP 17; TEMP 36.4; O2SAT 95
[2023-06-05 07:49] VITALS: BP 140/77; PULSE 79; RESP 16; TEMP 36.4; O2SAT 96
[2023-06-05] MEDS: SODIUM CHLORIDE 0.9% IV (08:02)
[2023-06-05] MEDS: DAPTOMYCIN IV (08:02)
[2023-06-06 08:00] VITALS: BP 135/77; PULSE 77; RESP 16; TEMP 36.6; O2SAT 97
[2023-06-06] MEDS: DAPTOMYCIN IV (08:29)
[2023-06-06] MEDS: SODIUM CHLORIDE 0.9% IV (08:29)
[2023-06-06 09:35] VITALS: BP 126/72; PULSE 65; RESP 16; TEMP 36.6; O2SAT 97
[2023-06-07 07:52] VITALS: BP 149/66; PULSE 74; RESP 16; TEMP 36.7; O2SAT 98
[2023-06-07] MEDS: DAPTOMYCIN IV (07:56)
[2023-06-07] MEDS: SODIUM CHLORIDE 0.9% IV (07:56)
[2023-06-07 09:35] VITALS: BP 151/74; PULSE 71; RESP 16; TEMP 36.6; O2SAT 96
[2023-06-08] VITALS: BP 132/74; PULSE 78; RESP 18; TEMP 36.7; O2SAT 98
[2023-06-08 09:25] VITALS: BP 132/78; PULSE 78; RESP 18; TEMP 36.6; O2SAT 98
[2023-06-09] MEDS: DAPTOMYCIN IV (08:15)
[2023-06-09] MEDS: SODIUM CHLORIDE 0.9% IV (08:15)
[2023-06-09 09:15] VITALS: BP 125/68; PULSE 73; RESP 16; O2SAT 96
[2023-06-10 07:45] VITALS: BP 123/69; PULSE 72; RESP 16; TEMP 36.6; O2SAT 96
[2023-06-10] MEDS: SODIUM CHLORIDE 0.9% IV (07:54)
[2023-06-10] MEDS: DAPTOMYCIN IV (07:54)
[2023-06-11 07:55] VITALS: BP 125/82; PULSE 72; RESP 17; TEMP 36.4; O2SAT 98
[2023-06-11] MEDS: DAPTOMYCIN IV (08:11)
[2023-06-11] MEDS: SODIUM CHLORIDE 0.9% IV (08:11)
--- NOTE | 2023-06-13 10:02 | PC.NURSE ---
06-08-2023 8:30am starting time for the Daptomycin 730mg after IV Picc assessed for patency, Ending time 0938 am
[2023-06-13] MEDS: DAPTOMYCIN IV (13:30)
[2023-06-13] MEDS: SODIUM CHLORIDE 0.9% IV (13:30)
[2023-06-13 14:00] VITALS: BP 124/78; PULSE 78; RESP 18; TEMP 36.6; O2SAT 98
== END 2023-06-13 23:59 | disposition home or self-care (01) ==
PROVIDERS: PCP Family Medicine; Visit Provider Student in an Organized Health Care Education/Training Program
DX: Z96.652 Presence of left artificial knee joint (principal)
CPT/HCPCS: 36593; 96365; J0878; J1642; J2997

== ENCOUNTER 2023-06-15 09:06 | Oncology outpatient (recurring) (ONCR) | payer MEDICARE, OTHER, SELFPAY ==
[2023-06-12 08:12] VITALS: BP 145/85; PULSE 77; RESP 16; TEMP 36.5; O2SAT 97
[2023-06-12] MEDS: SODIUM CHLORIDE 0.9% IV (08:15)
[2023-06-12] MEDS: DAPTOMYCIN IV (08:15)
== END 2023-07-12 23:59 | disposition home or self-care (01) ==
PROVIDERS: PCP Family Medicine; Visit Provider Student in an Organized Health Care Education/Training Program
DX: Z53.9 Procedure and treatment not carried out, unspecified reason (principal)
CPT/HCPCS: 96365; J0878

== ENCOUNTER → 2024-01-29 12:21 | Outpatient (BNVA) | payer MEDICARE, OTHER, SELFPAY | PROVIDERS: PCP Family Medicine; Visit Provider Internal Medicine | DX: I25.10 Atherosclerotic heart disease of native coronary artery without angina pectoris (principal); I10 Essential (primary) hypertension; E66.9 Obesity, unspecified; G47.33 Obstructive sleep apnea (adult) (pediatric); Z68.33 Body mass index [BMI] 33.0-33.9, adult | CPT/HCPCS: 99214 ==

== ENCOUNTER 2024-02-06 10:24 | Outpatient (CLI) | payer MEDICARE, OTHER, SELFPAY ==
--- NOTE | 2024-02-06 10:35 | MR_ITS ---
WS: [id number] MRI BRAIN/ORBITS WITH AND WITHOUT CONTRAST HISTORY: ORBITAL MASS/SUDDEN VISION LOSS/PSEUDOPAPILLEDEMA COMPARISON: 08/18/2020 TECHNIQUE: Multiplanar imaging performed through the brain with MultiHance 20 ml's IV. Reidentified is the ovoid mass adjacent to the RIGHT optic nerve. Mass is well-circumscribed and decr eased signal on the T1 sequence. There is intense enhancement on the postcontrast images. Mass measur es 7.3 x 4.5 x 5.6 mm. Very similar in size to the prior study. There is intense enhancement of the mass. There is deviation of the RIGHT optic nerve centrally towards the medial rectus muscle. There i s also a small amount of edema in the optic nerve along with the compression. The LEFT optic nerve ap pears appropriate. No additional areas of intense enhancement. No acute infarcts are seen. Baron-white matter differentiation is well preserved. Very mild atrophy and small vessel disease. No prior infarct. No hemorrhage. Ventricles and extra-axial spaces are normal. Clivus and pituitary gland are normal. Visualized posterior fossa and brainstem are also normal. No additional intracranial mass. No vascular malformations. Paranasal sinuses: Mild mucoperiosteal thickening in the ethmoid air cells. No air-fluid levels. Mastoid air cells: Normal. Calvarium and scalp: Normal. MR/MR orbit face neck wo/w* [id number] IMPRESSION: 1. 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 2. Slightly greater displacement of the RIGHT optic nerve medially and a small amount of edema now noted along the optic nerve sheath. 3. No additional masses. 4. Mild volume loss in the brain. Mild small vessel disease. No acute infarcts .
[2024-02-06] MEDS: gadobenate dimeglumine 20 mL vial IV (11:49)
== END 2024-02-06 10:25 | disposition home or self-care (01) ==
LOC: RAD 10:24
PROVIDERS: PCP Family Medicine; Visit Provider Student in an Organized Health Care Education/Training Program
DX: D43.3 Neoplasm of uncertain behavior of cranial nerves (principal); H47.331 Pseudopapilledema of optic disc, right eye; H53.139 Sudden visual loss, unspecified eye
CPT/HCPCS: 70543; A9577

== ENCOUNTER → 2025-01-27 13:06 | Outpatient (BNVA) | payer MEDICARE, OTHER, SELFPAY | PROVIDERS: PCP Family Medicine; Visit Provider Internal Medicine | DX: I10 Essential (primary) hypertension (principal); G47.33 Obstructive sleep apnea (adult) (pediatric); I25.10 Atherosclerotic heart disease of native coronary artery without angina pectoris | CPT/HCPCS: 99214 ==

== ENCOUNTER 2025-03-01 10:16 | Observation (INO) | payer MEDICARE, OTHER, SELFPAY ==
--- OUTSIDE RECORDS SUMMARY | 2023-05-04 06:15 | XMS_ITS | Continuity of Care Document ---
Author Organization [facility] Address [address] [place] [address] Phone Care Team Providers Care Cushion Installer Name Role Phone Unavailable Unavailable Unavailable Allergies, Adverse Reactions, Alerts Substance Reaction Status Criticality No Known allergies Medications Medication Instructions Dosage Effective Dates (start - stop) Status Comments NORTRIPTYLINE HCL (unknown strength) Not Available - Active ATORVASTATIN CALCIUM (unknown strength) Not Available - Active HYDROCHLOROTHIAZIDE (unknown strength) Not Available - Active XARELTO (unknown strength) Not Available - Active amoxicillin 875 mg tablet take 1 tablet by oral route every 12 hours 875 MG - No Longer Active Procedures Procedure Date Offic/outpt E&m [facility] provided [facility] an urgent care [facility] er Offic/outpt E&m [facility] 2 Services provided in an urgent care [facility] Advance Directives Directive Yes / No Effective Date File Name No Information Encounters Encounter Description Practice Location Reason(s) For Visit Diagnoses Date Provider Providers Copied on Encounter Offic/outpt E&m [facility] Low[facility], [address], [place], [place], [id number], tel:[phone] [facility] Mouth sore (chief complaint) ORAL ABSCESS No Information Offic/outpt E&m [facility], [address], [place], [place], [id number], tel:[phone] [facility] ear ache (chief complaint) Dysfunction of left eustachian tubeTMJ dysfunction [facility]. [address], [address], [place], [address], [place]. tel:[phone] Referring Provider: Chichi Maynard [facility], [address], [place], [address]. tel:[phone] Family History Family Member Type Diagnosis Age At Onset No Information Payers Payer name Insurance type Covered republican ID Authoriza tion(s) Medicare B [facility] [id number] BCBS Of [facility] [id number] Social History Type Description Quantity Date Captured Comments Alcohol Use Details No Caffeine Use Details Unknown Tobacco Use Status No Information Smoking Status Never smoker Sex Male Vital Signs Date / Time: Height Weight BMI Pulse Rate Blood Pressure Temperature Respiratory Rate Body Surface Area Head Circumference Head Circ. Percentile Wt./Benny. Percentile BMI percentile Pulse Ox Inhaled Ox 11:19 AM 70.00 in 93.440 kg (206.00 lbs) 29.5 6 kg/m eter (2) 79 /min 120/82 mm[Hg] 98.90 F 18 /min 98 % Chief Complaint And Reason For Visit From encounter dated '05/04/2023 11:15'. Mouth sore (chief complaint). Description: Onset was sudden. Duration is 1 Day. Severity is moderate. The problem is worsening. It occurs constantly. Location is lower gums. The patient describes it as ERYTHEMA, SWELLING. Context: DENTAL INFECTION. He denies aggravating factors. He denies relievingfactors. Pertinent negatives include ammonia like odor, bleeding from site, bruxism, dysphagia, erythema of lips, erythema of oral mucosa, fever, food allergies, malaise, odynophagia, otalgia, painful lesion, poor dietary intake, prodromal sensation, salivation (diminished), salivation (profuse), skin disorder and strawberry tongue. Reason For Referral Reason For Referral No Information History Of Present Illness Encounter Date Complaint History Of Prese nt Illness Mouth sore Onset was sudden . Duration is 1 Day. Severity is moderate. The problem is worsening. It occurs constantly. Location is lower gums. The patient describes it as ERYTHEMA, SWELLING. Context: DENTAL INFECTION. He denies aggravating factors. He denies relieving factors. Pertinent negatives include ammonia like odor, bleeding from site, bruxism, dysphagia, erythema of lips, erythema of oral mucosa, fever, food allergies, malaise, odynophagia, otalgia, painful lesion, poor dietary intake, prodromal sensation, salivation (diminished), salivation (profuse), skin disorder and strawberry tongue. ear ache Onset: gradual. Duration is 3 Days. Severity level is mild-moderate. The problem is fluctuating. It occurs intermittently. Location is left ear. The patient describes it as pressure. Context: recent dental work. Denies aggravating factors. Denies relieving factors. Pertinent negatives include cough, drainage (bloody), drainage (clear), drainage (ear), drainage (purulent), drainage (white), ear redness/swelling, fever, headache, hearing loss, insomnia, irritability, jaw pain, malaise, nasal congestion, nasal drainage, nausea, sore throat, tinnitus, tooth pain on same side and vomiting. Functional Status Date Functional Assessmen t No Information Instructions Date Instruction Additional Infor danilo PLEASE FILL YOUR PRE SCRIPTIONS AND TAKE ALL MEDICATIONS DIRECTED/PRESCRIBED EVEN IF YOU BEGIN TO FEEL BETTER BEFORE YOU RUN OUT OF MEDICINE. RISKS AND BENEFITS OF MEDICATIONS WERE DISCUSSED DURING YOUR VISIT. WATCH CLOSELY FOR THESE SIGNS OF INFECTION: REDNESS; DRAINAGE/PUS; WARMTH AT SITE OR GENERAL FEVER; SWELLING; RED STREAKS; INCREASING PAIN. RETURN TO THE CLINIC OR GO TO THE EMERGENCY ROOM IF THESE SYMPTOMS DEVELOP. TAKE IBUPROFEN (E.G. MOTRIN, ADVIL) AT THE RECOMMENDED [id number] DOSE WITH FOOD EVERY 6 HOURS NEEDED UNTIL PAIN AND/OR SWELLING ARE GONE. TAKE ACETAMINOPHEN (TYLENOL) EVERY 4-6 HOURS NEEDED FOR FEVER OR PAIN. CAUTION: DO NOT TO EXCEED THE MFGR RECOMMENDATION FOR DAILY DOSE LIVER INJURY CAN OCCUR. Related to ORAL ABSCESS trial ibu, warm comp resses and soft food diet. 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 YOU MAY ADD AN ALLERGY NASAL SPRAY (SUCH FLONASE) DAILY IF THIS DOES NOT PROVIDE ENOUGH RELIEF FROM SYMPTOMS. Related to Dysfunction of left eustachian tube Assessments Type Assessment Date assessment ORAL ABSCESS Mental Status Date Cognitive Assessment Orientation - [place] ed to time, place, person, situation. Patient Care Teams Name Effective Dates (start - stop) Status Members No Information
--- OUTSIDE RECORDS SUMMARY | 2024-04-06 04:00 | XMS_ITS ---
Author Organization [facility] Address [address] [place] [address] Care Team Providers Care Ring Conductor Name Role Phone Murali Cummings Primary Care Provider Unavailabl e Tam Crenshaw Unavailable [phone] Migration, Provider Unavailable Unavailable REASON FOR VISIT EMR-Fredo Encounters Encounter Location Date Provider Diagnosis Migrated_Facility 0 0 04/06/2024 Provider Migration Plan Of Treatment No Information Progress Notes * Magen WOODS RDOB:[birth year] (79 yo M)Acc No.[id number]:04/06/2024 Patient: Jon HERRERAMagen :1945 A ge:78 Y S ex:Male Address:[address] [address] Subjective: * Chief Complaints: * E MR-Fredo * * Date:
--- OUTSIDE RECORDS SUMMARY | 2024-04-07 04:00 | XMS_ITS ---
Author Organization [facility] Address [address] [place] [address] Care Team Providers Care Post Hole Digger Name Role Phone Murali Cummings Primary Care Provider Tam Meeks Unavailable [phone] Migration, Provider Unavailable Unavailable REASON FOR VISIT [...] Magen WOODS RDOB:[birth year] (79 yo M)Acc No.[id number]:04/07/2024 Patient: Magen HICKEY :1945 A ge:78 Y S ex:Male Address:[address] [place] [address] Subjective: * Chief Complaints: * E MR-Fredo [...]
--- OUTSIDE RECORDS SUMMARY | 2025-02-20 09:12 | XMS_ITS | Continuity of Care Document ---
Author Organization [facility] Address [address] [place] [address] Phone Care Team Providers Care Inbound Sales Representative Name Role Phone Puls OD, Angeline Unavailable Unavailable Allergies, Adverse Reactions, Alerts Substance Reaction Status Criticality adhesive Active No Information Fish Containing Products Active No Information Medications Medication Instructions Dosage Effective Dates (start - stop) Status Comments Jardiance 10 mg tablet take 1 tablet by oral route every day in the morning 10 MG - Active Eliquis 5 mg tablet take 1 tablet by oral route 2 times every day 5 MG - Active sumatriptan 25 mg tablet take 1 tablet b y oral route after onset of migraine; may repeat after 2 hours if headache returns,not to exceed 200mg in 24hrs 25 MG - Active tamsulosin 0.4 mg capsule take 1 capsule by oral route every day 1/2 hour following the same meal each day 0.4 MG - Active nortriptyline 10 mg capsule take 1 capsu le by oral route every day at bedtime 10 MG - Active atorvastatin 40 mg tablet take 1 tablet by oral route every day 40 MG - Active hydrochlorothiazide 25 mg tablet take 1 tablet by oral route every day 25 MG - Active Procedures Procedure Date Est Patient E/M [facility] Advance Directives Directive Yes / No Effective Date File Name No Information Encounters Encounter Description Practice Location Reason(s) For Visit Diagnoses Date Provider Est Patient E/M [facility], [address] [place], [id number], [place] tel:[phone] SEC Edm[place] Dry eyes (chief complaint) Dry eye syndrome of bilateral lacrimal glandsAge-relate d nuclear cataract, bilateral 2024 Puls Angeline. [address] [place] [address], [id number], . tel:[phone] [facility] [place], [address] [place] [address] [place], [id number], tel:[phone] SEC [place] Dry eye (chief complaint)de creased VA (chief complaint)do uble VA (chief complaint) PresbyopiaDry eye syndrome of bilateral lacrimal glandsAge-relate d nuclear cataract, bilateral 2023 Puls Angeline. [address] [place] [address], [id number], . tel:[phone] [facility] [place], [address] [place] [address] [place], [id number], tel:[phone] SEC [place] blurry vision (chief complaint)Re dness (chief complaint) PresbyopiaAge-re lated nuclear cataract, bilateralDry eye syndrome of bilateral lacrimal glands 2021 Puls Angeline. [address] [place] [address], [id number], . tel:[phone] Family History Family Member Type Diagnosis Age At Onset Problem No family history of Glaucom a Problem No family history of Macular degeneration Payers Payer name Insurance type Covered green party ID Authoriza titalya(s) [facility] Medicare Advantage Assure PPO [id number] Social History Type Description Quantity Date Captured Comments Alcohol Use Details No Caffeine Use Details 2 cups per day Tobacco Use Status Ex-cigarette smoker 025 Smoking Status Former smoker Smoking Tobacco Use Details Cigarette: Age Stopped: 41, Cigarette: No Details Available Sex Male Chief Complaint And Reason For Visit From encounter dated '02/20/2025 14:12'. Dry eyes (chief complaint) Plan Of Treatment Date Type Action Status Goal Tobacco cessation counseling completed Appointment Trenton Juarez BOOKED Appointment Trenton Juarez BOOKED History Of Present Illness Encounter Date Complaint History Of Prese nt Illness Dry eyes The 79 year old male presents for evaluation of Dry eyes in the right eye and left eye. Pt states his OU VA has been stable since his last visit. Pt denies having any pain or discomfort in or around his eyes. Pt denies having any blurred vision. Pt states he has occasional double vision but states its rare. Pt states he has an upcoming appt for a new GLS Rx. Pt states he has no further concerns for the Dr today. double VA The patient is p resent for evaluation of double VA in the right eye and left eye. Pt states he notices in situations like staring at the anthony he notices he has some double VA. Pt state it is not something that interferes with his living, but has noticed it every once in a while- PT states for the last 15 years has had a hard time focusing. NOT like he is seeing 2 anthony . decreased VA The patient is p resent for evaluation of decreased VA in the right eye and left eye. Over the past few months PT has noticed his distance VA with reading signs has decreased. PT states he just currently uses readers but thinks he may need an RX for distance. PT would like a new RX for GLS today. Dry eye The 78 year old male presents for evaluation of Dry eye in the right eye and left eye. Pt complains when he is outside he will notice his OU eyes will become very dry. PT states he does wear sunGLS AND a hat. PT states he will use Lubricating drops witch does seem to help. Redness The 76 year old male presents for evaluation of Redness in the right eye and left eye. Patient says that for past few years eyes are always red. Thinks it has to do with his migraines. Pt does not currently use any OTC drops blurry vision The patient is p resent for evaluation of blurry vision in the right eye and left eye. Patient states he struggles with blurred vision mostly near acuity. Patient reports he has multiple different types of glasses but they're not improving vision. Patient is interested in a refraction for glasses. Instructions Date Instruction Additional Infor danilo Impression/Plan - Di scussed signs and symptoms of cataract progression. Pt to RTC PRN in the event of changes to visual status. No recommendation for surgery at present time. Will continue to monitor with yearly DFE. Related to Age-related nuclear cataract, bilateral Impression/Plan - Ed ucated pt on dry eye, the effects it can have on the eyes and VA, along with treatment options. Recommend OTC artificial tear use 2-4x daily w/ emphasis on QAM and QHS doses. Discussed possible improvement with thicker gel or ointment QHS. Recommend warm compress w/ lid massage. If symptoms continue/worsen will consider prescription drug therapy. Related to Dry eye syndrome of bilateral lacrimal glands Follow up - 1 year DFE Impression/Plan - Di scussed signs and symptoms of cataract progression. Pt to RTC PRN in the event of changes to visual status. No recommendation for surgery at present time. Will continue to monitor, with yearly DFE. Related to Age-related nuclear cataract, bilateral Impression/Plan - Re commend OTC artificial tear use 2-4x daily w/ emphasis on QAM and QHS doses. Discussed possible improvement with thicker gel or ointment QHS. Recommend warm compress w/ lid massage. If symptoms continue/worsen will consider prescription drug therapy. Related to Dry eye syndrome of bilateral lacrimal glands Impression/Plan - Di spensed new glasses Rx today and discussed changes and possible adaptation period. Patient to call if any issues with new glasses occur. Related to Presbyopia Impression/Plan - Ne w glasses Rx was given today. Related to Presbyopia 1 yr DE w/ OCT CATS Related to A ge-related nuclear cataract, bilateral 1 year vision exam Related to Pr esbyopia Impression/Plan - Di scussed signs and symptoms of cataract progression. Pt to RTC PRN in the event of changes to visual status. No recommendation for surgery at present time. Will continue to monitor, with yearly DFE. Related to Age-related nuclear cataract, bilateral Impression/Plan - Re commend OTC artificial tear use 2-4x daily w/ emphasis on QAM and QHS doses. Discussed possible improvement with thicker gel or ointment QHS. Recommend warm compress w/ lid massage. If symptoms continue/worsen will consider prescription drug therapy. Related to Dry eye syndrome of bilateral lacrimal glands Impression/Plan - Di spensed new glasses Rx today and discussed changes and possible adaptation period. Patient to call if any issues with new glasses occur. Related to Presbyopia Follow up - 1 year vision exam R elated to Presbyopia Follow up - 1 yr DE w/ OCT Relat ed to Age-related nuclear cataract, bilateral Assessments Type Assessment Date assessment Dry eye syndrome of bilateral la crimal glands impression Dry eye syndrome of bilateral la crimal glands: H04.123 assessment Age-related nuclear cataract, bi lateral impression Age-related nuclear cataract, bi lateral: H25.13
[2025-03-01] VITALS (19 sets, daily range): BP systolic 113–152; BP diastolic 52–92; PULSE 69–83; RESP 14–20; TEMP 36.2–37.6; O2SAT 94–100; BMI 32.1; BMI 32.3
--- OUTSIDE RECORDS SUMMARY | 2025-03-01 10:22 | XMS_ITS | Clinical Summary ---
Author Organization [facility] Address [address] [place] [address] Care Team Providers Care Fire Fighter Name Role Phone Murali Cummings MD Primary Care Provider [phone] Allergies Active Allergy Reactions Criticality Noted Date Comments Diclofenac-Misoprostol Other (See Comments) Medium 03/2009 Bothers stomach Medications naproxen (NAPROSYN) 500 mg Oral tabletIndicatio ns:Knee stiffness Take 1 Tab by mouth 2 times daily with meals. 60 Tab 2 01/26/2011 Active aspirin (ECOTRIN EC) 81 mg Tablet, Delayed Release (E.C.)Indicatio ns:Back pain Take 81 mg by mouth daily. Active lisinopril-hydr oCHLOROthiazide (ZESTORETIC) 20-12.5 mg tablet 05/13/2016 Active omeprazole (PriLOSEC) 40 mg Capsule, Delayed Release(E.C.) Take 40 mg by mouth daily. Active gabapentin (NEURONTIN) 100 mg capsule Take 1 Capsule (100 mg) by mouth 2 times daily. 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 Right Knee Stiffness s/p TKA 01/27/2009 Resolved Problems Problem Noted Date Diagnosed Date Resolved Date Right knee DJD 08/18/2008 01/27/2009 Social History Tobacco Use Types Packs/Day Years Used Date Smoking Tobacco: Former Cigarettes 0 06/12/2002 - 06/12/2004 Smokeless Tobacco: Never Comments:2-3 cigs per day Alcohol Use Standard Drinks/Week Comments No 0 (1 standard drink = 0.6 oz pur e alcohol) Sex and Gender Information Value Date Recorded Sex Assigned at Not on file 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 Gender Identity Not on file Sexual Orientation Not on file Last Filed Vital Signs Vital Sign Reading Time Taken Comments Blood Pressure 127/69 03/02/2020 2:18 PM CDT Pulse 76 03/02/2020 2:17 PM CDT Temperature 36.1 C (97 F) 03/02/2020 1:17 PM CDT Respiratory Rate 18 03/02/2020 2:17 PM CDT Oxygen Saturation 96% 03/02/2020 2:17 PM CDT Inhaled Oxygen Concentration - - Weight 90.7 kg (200 lb) 03/02/2020 1:17 PM CDT Height 170.2 cm (5' 7 ) 03/02/2020 1:17 PM CDT Body Mass Index 31.32 03/02/2020 1:17 PM CDT Plan of Treatment Health Maintenance Due Date Last Done Comments DTAP/TDAP/TD VACCINES (1 - Tdap) 1965 PNEUMOCOCCAL VACCINE 50+ YEARS (1 of 1 - PCV) 08/04/18 97 ZOSTER VACCINE (1 of 2) 1996 RSV VACCINE (60+ or ) (1 - 1-dose 75+ series) 2021 INFLUENZA VACCINE (#1) 2025 05/27/2019 Medical Devices Implanted Type Area Tray Filler Device Identifier Shelf Expiration Date Model / Serial / Lot Log 4915 - Cement - 1 - Cement Palacos Sgl [id number] Implanted:Qty: 1 on 08/19/2008 at [facility] Cement Right: Knee [employer] 00-1112-14 0-01 / NA / [id number] Log 4915 - Betty Total Knee - 1 - Baseplate Tib Sz 3 [id number] Implanted:Qty: 1 on 08/19/2008 at [facility] Knee Right: Knee [employer] 6306-07-04 0 / NA / [id number] Log 4915 - Betty Total Knee - 1 - Comp Fem Flex Gsm Sz 4-Rt Nkii [id number] Implanted:Qty: 1 on 08/19/2008 at [facility] Right: Knee [employer] 7- / NA / [id number] Log 4915 - Betty Total Knee - 1 - Patella Prolng Flex Sz 1 8mm Nkii [id number] Implanted:Qty: 1 on 08/19/2008 at [facility] Right: Knee [employer] 8- / NA / [id number] Log 4915 - Betty Total Knee - 1 - Ins Prolng Flx Sz 3//5-Rt 9mm Jose Guadalupe Nkii [id number] Implanted:Qty: 1 on 08/19/2008 at [facility] Right: Knee [employer] 3 / NA / [id number] Insurance MEDICARE PART A AND B [facility] SUPP Advance Directives For more information, please contact: [phone] * Full Code (Latest Code Status on File) Date Activated Date Inactivated Comments 02/03/2009 9:44 AM 02/03/2009 5:26 PM * Full Code Date Activated Date Inactivated Comments 02/03/2009 7:21 AM 02/03/2009 9:44 AM * Full Code Date Activated Date Inactivated Comments 08/19/2008 7:26 AM 08/24/2008 3:37 PM * Full Code Date Activated Date Inactivated Comments 08/19/2008 6:54 AM 08/19/2008 7:26 AM * Full Code Date Activated Date Inactivated Comments 08/19/2008 5:28 AM 08/19/2008 6:54 AM Care Teams Fire Fighter Relationship Specialty Start Date End Date Murali Cummings MD [address] [place] [address] PCP - General Family Practice 04/04/14
--- OUTSIDE RECORDS SUMMARY | 2025-03-01 10:22 | XMS_ITS | Patient Health Record ---
Author Organization [facility], [facility] Address [address] [place] [address] Care Team Providers Care Resident Services Director Name Role Phone Murali Cummings Primary Care Provider JEFFRY Nolan Unavailable [phone] RYAN LOGAN Unavailable [phone] Allergies Allergen (clinical drug ingredient) Drug/Non Drug Allergy documented on EMR Reaction Allergy Type Onset Date Status diclofenac / misoprostol Arthrotec Unknown Drug Allergy Active Results Component Value Reference Range Notes Urinalysis, Routine Reviewed date:05/16/2024 01:52:16 PM Interpretation: Performing Lab: Notes/Report: Urine-Color yellow Appearance clear Glucose - Bilirubin 1+ Ketones - Specific Byron 1.025 Occult Blood 1+ pH 6.0 Urine Protein - Urobilinogen,Semi-Qn - Nitrite, Urine - WBC Esterase trace Urinalysis, Routine Reviewed date:07/08/2024 01:25:38 PM Interpretation: Performing Lab: Notes/Report: Urine-Color yellow Appearance clear Glucose - Bilirubin - Ketones - Specific Byron 1.015 Occult Blood trace pH 6.0 Urine Protein - Urobilinogen,Semi-Qn - Nitrite, Urine - WBC Esterase - MRI Abdomen w/ + w/o Cont--7 [id number] Reviewed date:07/04/2024 01:56:51 PM Interpretation: Performing Lab: Notes/Report: See Below For Report MRI Abdomen w/ + w/o Cont Read See Below For Report Reason For Referral No Information Medications Medication SIG (Take, Route, Frequency, Duration) Notes Start Date End Date Status Pantoprazole Sodium 40 MG 1 tablet 1/2 to 1 hour before morning meal Orally Once a day Active Aspirin 81 81 MG 1 tablet Orally Once a day Active Vitamin C 100 MG 1 tablet Orally Once a day 1000 Active Zinc Picolinate Acti ve Famotidine 20 MG 1 tablet at bedtime as needed Orally Once a day Active Lisinopril-hydroCHLOROt hiazide 20-12.5 MG 1 tablet Orally Once a day Active Tylenol Arthritis Pain as needed Not-Taking Problems Problem Type SNOMED Code ICD Code Onset Dates Problem Status W/U Status Risk Notes Problem Lower urinary tract symptoms due to benign prostatic hypertrophy (51528221125065) Benign prostatic hyperplasia with lower urinary tract symptoms (N40.1) Active confirmed Problem Asymptomatic microscopic hematuria (594654641034025 09) Asymptomatic microscopic hematuria (R31.21) Active confirmed Problem Disorder of kidney and/or ureter (260747008) Left renal mass (N28.89) Active confirmed Problem Acquired renal cystic disease (270359853) 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 89 and Asymptomatic microscopic hematuria R31.21 [facility], [facility] [address] [facility] [address] [facility] [place] [address] 07/08/2024 JEFFRY BUCIO Asymptomatic microscopic hematuria R31.21 and Acquired renal cyst of right kidney N28.1 [facility], [facility] [address] [facility] [address] [facility] [place] [address] 04/23/2024 JEFFRY BUCIO [facility], [facility] [address] [place] [address] 05/22/2024 RYANJESSY MICHELS Assessments Encounter Date Diagnosis (ICD Code) Assessment Notes Treatment Notes Treatment Clinical Notes Section Notes 05/16/2024 Asymptomatic microscopic hematuria (ICD-10 - R31.21) Will send urine for cytology. Repeat UA at follow up. If persistent or cytology is abnormal, then he may require complete workup with cystoscopy. 05/16/2024 Left renal mass (ICD-10 - N28.89) Reviewed patient's CT images as well as radiologic report from [facility]. He has a 1.2cm left renal lesion. It is really too small to characterize and there is not obvious enhancement. I offered him MRI of the abdomen versus surveillance CT in 6m. He would like MRI of the abdomen. Will schedule and have him RTC for review. 07/08/2024 Asymptomatic microscopic hematuria (ICD-10 - R31.21) 78 yo male with a simple R renal cyst, AMH, and BPH. Cysto shows a 4.2cm trilobar obstructing prostate with large median lobe. MRI shows a simple R renal cyst. No left renal lesions noted. Plan: -RTC in 1yr with UA, PVR and IPSS 07/08/2024 Acquired renal cyst of right kidney (ICD-10 - N28.1) 78 yo male with a simple R renal cyst, AMH, and BPH. Cysto shows a 4.2cm trilobar obstructing prostate with large median lobe. MRI shows a simple R renal cyst. No left renal lesions noted. Plan: -RTC in 1yr with UA, PVR and IPSS Plan Of Treatment Pending Test Test Name Order Date MRI : Abdomen with and without Contrast [id number] 05/16/2024 Blood Urea Nitrogen (BUN) 05/16/2024 Creatinine Serum 05/16/2024 Next Appt Details Provider Name:JEFFRY Purvis, 07/10/2025 01:15:00 PM, [address] [place], [address], Insurance Providers Payer Name Payer Address Payer Phone Subscriber Number Group Number Insured Name Patient Relationship to Insured Coverage Start Date Coverage End Date [place] Medicare [address] JOHNNY [place] [id number] [phone] [id number] Magen Juarez Self - patient is the insured [facility] [address] [place] [phone] [id number] Magen Juarez Self - patient is the insured Medical (General) History Medical History History ICD Code arthritis heart disease HTN CAD degenerative disc disease Surgical History Surgery Date(Month/Year) rt. knee replacement 08/2008 2nd right knee replacement 01/2012 left knee replacement 12/2020 left knee revision 04/2023 left shoulder replacement 07/2017 rt hip replacement 03/2022 lumbar surgery 1989 c5 -6-7 12/2019 heart stent 06/2020 Hospitalization History Reason Date(Month/Year) see surgeries
--- OUTSIDE RECORDS SUMMARY | 2025-03-01 10:22 | XMS_ITS | Encounter Summary ---
Author Organization [facility] Address [address] [place] [address] Care Team Providers Care Metaphysician Name Role Phone Murali Cummings MD Primary Care Provider [phone] Reason for Referral * Outpatient Services (Routine) - Closed Specialty Diagnoses / Procedures Referred By Contac t Referred To Contact Diagnoses Lumbosacral spondylosis without myelopathy Procedures XR FLUORO NEEDLE GUIDANCE SPINE Fredrick Talbot MD Phone: tel: fax: Referral ID Status Reason Start Date Expiration Date Visits Re quested Visits Authorized [id number] Closed 11/20/2017 12/21/2018 1 1 Encounter Details Date Type Department Care Team (Late st Contact Info) Description 11/20/2017 Ancillary Orders [facility] Pain Management Procedures [place] [address] [place] [address] [place] [address] [facility] [address] [place] [address] Lumbosacral spondylosis without myelopathy Social History Tobacco Use Types Packs/Day Years Used Date Smoking Tobacco: Former Cigarettes 0 06/12/2002 - 06/12/2004 Smokeless Tobacco: Never Comments:2-3 cigs per day Alcohol Use Standard Drinks/Week Comments No 0 (1 standard drink = 0.6 oz pur e alcohol) Sex and Gender Information Value Date Recorded Sex Assigned at Not on file 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 Exam was auto-finalized. Fredrick Talbot MD DIAGNOSTIC IMAGING ORDERABLES Final Result documented in this encounter Visit Diagnoses Diagnosis Lumbosacral spondylosis without myelopathy Lumbosacral spondylosis without myelopathy documented in this encounter Care Teams Metaphysician Relationship Specialty Start Date End Date Murali Cummings MD [address] [address] PCP - General Family Practice 04/04/14 documented as of this encounter
--- OUTSIDE RECORDS SUMMARY | 2025-03-01 10:22 | XMS_ITS | Encounter Summary ---
Author Organization [facility] Address [address] [place] [address] Care Team Providers Care Drug Enforcement Agent Name Role Phone Murali Cummings MD Primary Care Provider [phone] Reason for Referral * Radiology Services (Routine) - Closed Specialty Diagnoses / Procedures Referred By Contac t Referred To Contact Diagnoses Other chronic pain Procedures XR FLUORO NEEDLE GUIDANCE SPINE Fredrick Talbot MD Phone: tel: fax: Referral ID Status Reason Start Date Expiration Date Visits Re quested Visits Authorized [id number] Closed 04/01/2019 05/01/2020 1 1 Encounter Details Date Type Department Care Team (Late st Contact Info) Description 04/01/2019 Ancillary Orders 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 Exam was auto-finalized. Fredrick Talbot MD DIAGNOSTIC IMAGING ORDERABLES Final Result documented in this encounter Visit Diagnoses Diagnosis Other chronic pain Other chronic pain documented in this encounter Care Teams Drug Enforcement Agent Relationship Specialty Start Date End Date Murali Cummings MD [address] [address] PCP - General Family Practice 04/04/14 documented as of this encounter
--- OUTSIDE RECORDS SUMMARY | 2025-03-01 10:22 | XMS_ITS | Encounter Summary ---
Author Organization [facility] Address [address] [place] [address] Care Team Providers Care Patent Litigation Associate Name Role Phone Murali Cummings MD Primary Care Provider [phone] Reason for Referral * Outpatient Services (Routine) - Pending Review Specialty Diagnoses / Procedures Referred By Gonzalo pascual Referred To Contact Diagnoses Spondylosis without myelopathy or radiculopathy, lumbar region Axial spondyloarthritis Lumbar spondylosis Procedures RADIOFREQUENCY - THERMAL Balbina Reyna PA [address] [place] [address] Phone: tel: fax: Referral ID Status Reason Start Date Expiration Date V isits Requested Visits Authorized [id number] Pending Review 02/25/2025 03/28/2026 1 1 Encounter Details Date Type Department Care Team (Late st Contact Info) Description 02/25/2025 Orders Only [facility] Pain Management [place] [address] [place] [address] Balbina Reyna PA [address] [place] [address] Spondylosis without myelopathy or radiculopathy, lumbar region (Primary Dx); Axial spondyloarthritis; Lumbar spondylosis Social History Tobacco Use Types Packs/Day Years Used Date Smoking Tobacco: Former Cigarettes 0.5 38 1 967 - 06/12/2004 Smokeless Tobacco: Never Comments:Quit smokin-3 c igs per day, occassional for a few years Alcohol Use Standard Drinks/Week Comments No 0 (1 standard drink = 0.6 oz pur e alcohol) Feeling Safe Answer Date Recorded Are you in a relationship wi th someone who hurts you emotionally and/or physically? 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 Balbina Reyna PA to Me (Selected Message) 02/20/25 9:41 AM Ok to repeat RFA. Balbina Aguilar documented in this encounter Plan of Treatment Upcoming Encounters Date Type Department Care Team (Late st Contact Info) Description 03/13/2025 9:10 AM CDT Appointment [facility] Procedures [place] [address] [place] [address] Yaw Vidal MD [address] [place] [address] Scheduled Orders Name Type Priority Associated Diagnoses Orde r Schedule RADIOFREQUENCY - THERMAL Neurology Routine Spondylosis without myelopathy or radiculopathy, lumbar region Axial spondyloarthritis Lumbar spondylosis 1 Occurrences starting 02/25/2025 until 02/25/2026 documented as of this encounter Visit Diagnoses Diagnosis Spondylosis without myelopathy or radiculopathy, lumbar region- Primary Axial spondyloarthritis Lumbar spondylosis Lumbosacral spondylosis without myelopathy documented in this encounter Care Teams Patent Litigation Associate Relationship Specialty Start Date End Date Murali Cummings MD [address] [address] PCP - General Family Practice 04/04/14 documented as of this encounter
--- OUTSIDE RECORDS SUMMARY | 2025-03-01 10:22 | XMS_ITS | Encounter Summary ---
Author Organization [facility] Address [address] [place] [address] Care Team Providers Care Gang Investigator Name Role Phone Murali Cummings MD Primary Care Provider [phone] Reason for Referral * Outpatient Services (Routine) - Closed Specialty Diagnoses / Procedures Referred By Contac t Referred To Contact Diagnoses Thoracic or lumbosacral neuritis or radiculitis, unspecified Procedures XR FLUORO NEEDLE GUIDANCE Fredrick Talbot MD Phone: tel: fax: Referral ID Status Reason Start Date Expiration Date Visits Re quested Visits Authorized [id number] Closed 08/20/2014 09/20/2015 1 1 Encounter Details Date Type Department Care Team (Late st Contact Info) Description 08/20/2014 Ancillary Orders [facility] Pain Management Procedures [place] [address] [place] [address] [place] [address] 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 Exam was auto-finalized. Fredrick Talbot MD DIAGNOSTIC IMAGING ORDERABLES Final Result documented in this encounter Visit Diagnoses Diagnosis Thoracic or lumbosacral neuritis or radiculitis, unspecified- Primary Thoracic or lumbosacral neuritis or radiculitis, unspecified documented in this encounter Care Teams Gang Investigator Relationship Specialty Start Date End Date Murali Cummings MD [address] [address] PCP - General Family Practice 04/04/14 documented as of this encounter
--- OUTSIDE RECORDS SUMMARY | 2025-03-01 10:23 | XMS_ITS | Clinical Summary ---
Author Organization [facility] Address [address] [place]itez: [place] [address] Care Team Providers Care Car Supervisor Name Role Phone Murali Cummings MD Primary Care Provider [phone] Allergies Active Allergy Reactions Criticality Noted Date Comments Diclofenac-Misoprostol Other (See Comments) Medium 03/2009 Bothers stomach Medications lisinopril-hydr oCHLOROthiazide (ZESTORETIC) 20-12.5 mg tablet 6 Active Additional Information Patient taking differently: 1 Tablet Oral DAILY, Reported on 08/22/2024 ascorbic acid, vitamin C, (VITAMIN C) 500 mg tablet 1 tablet Orally Once a day Active magnesium oxide 400 mg magnesium Capsule Take by mouth daily. Active Protonix 40 mg Tablet, Delayed Release (E.C.) Take 40 mg by mouth 2 times daily. Active zinc sulfate 50 mg zinc (220 mg) capsule Take 220 mg by mouth daily. Active aspirin 81 mg Capsule Take 1 capsule every day by oral route. Active famotidine (PEPCID) 20 mg tablet take 1 tablet by mouth twice a day for 90 days Active GLUTATHIONE-L ORAL Active traMADol (ULTRAM) 50 mg tablet Take 50 mg by mouth every 6 hours as needed for Pain. Active diclofenac sodium (VOLTAREN) 75 mg Tablet, Delayed Release (E.C.) Take 75 mg by mouth 2 times daily. 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/26/2023 Obesity (BMI 30.0-34.9) 04/12/2023 Obstructive sleep apnea 04/12/2023 Anemia 04/12/2023 History of tobacco use 04/12/2023 Primary hypertension 04/12/2023 ASHD (arteriosclerotic heart disease) 04/12/2023 GERD without esophagitis 04/12/2023 Optic nerve lesion 04/12/2023 Lumbar facet arthropathy 11/21/2016 Low back pain 09/22/2014 Lumbar radiculopathy 09/22/2014 Osteoarthritis of finger(s) 12/23/2010 Right knee DJD 11/17/2010 Right Knee Stiffness s/p TKA 01/27/2009 Resolved Problems Problem Noted Date Diagnosed Date Resolved Date 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 05/08/2023 Preoperative general physical examination 04/12/2023 04/26/2023 Right knee DJD 08/18/2008 01/27/2009 Encounters Date Type Department Care Team Description 02/25/2025 Orders Only [facility] Pain Management [place] [address] [place] [address] [place] [id number] Balbina Renya PA Spondylosis without myelopathy or radiculopathy, lumbar region (Primary Dx); Axial spondyloarthritis; Lumbar spondylosis from Last 3 Months Social History Tobacco Use Types Packs/Day Years Used Date Smoking Tobacco: Former Cigarettes 0.5 38 1 967 - 06/12/2004 Smokeless Tobacco: Never Tobacco Cessation:Counseling Given: Not Answered Comments:Quit smokin-3 cigs per day, occassional for a few years [...] PM CDT 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 Gender Identity Male 02/07/2023 8:07 PM CDT Sexual Orientation Straight 02/07/2023 8: 07 PM CDT Last Filed Vital Signs Vital Sign Reading Time Taken Comments Blood Pressure 136/79 10/17/2024 12:59 PM CDT Pulse 62 10/17/2024 12:59 PM CDT Temperature 36.7 C (98 F) 08/22/2024 12:31 PM CDT Respiratory Rate 16 10/17/2024 12:34 PM CDT Oxygen Saturation 97% 10/17/2024 12:59 PM CDT Inhaled Oxygen Concentration - - Weight 93 kg (205 lb) 10/03/2024 9:52 AM CDT Height 170.2 cm (5' 7 ) 10/03/2024 9:52 AM CDT Body Mass Index 32.11 10/03/2024 9:52 AM CDT Plan of Treatment Upcoming Encounters Date Type Department Care Team (Late st Contact Info) Description 03/13/2025 9:10 AM CDT Appointment [facility] Procedures [place] [address] [place] [address] Yaw Vidal MD [address] [place] [address] Health Maintenance Due Date Last Done Comments DTAP/TDAP/TD VACCINES (1 - Tdap) 1964 Traditional Medicare (ACO) A nnual Wellness Visit 1964 ZOSTER VACCINE (1 of 2) 1996 RSV VACCINE (60+ or ) (1 - 1-dose 75+ series) 2021 INFLUENZA VACCINE (#1) 2025 , 03/11/2023, 03/23/2022, Additional history exists COVID-19 Vaccine (2023-2 5 season) 2025 04/30/2024, 03/12/2023, 12/15/2021, Additional history exists PNEUMOCOCCAL VACCINE 50+ YEARS Completed 1 06/30/2023, 03/09/2020, 05/24/2012 Medical Devices Implanted Type Area Funding Specialist Device Identifier Shelf Expiration Date Model / Serial / Lot Log 4915 - Cement - 1 - Cement Palalans [facility] [id number] Implanted:Qty: 1 on 08/19/2008 Cement Right: Knee [employer] [id number] 01 / NA / [id number] Cement Palacos Mv Pro 80 Hip Knee Antimicrob [id number] - [id number] Implanted:Qty: 1 on 04/26/2023 by Murali Allen MD at [facility] Cement Left: Knee [employer] [id number] 06/11/2025 [id number] / / [id number] Log 4915 - Betty Total Knee - 1 - Baseplate Tib Sz 3 630 Implanted:Qty: 1 on 08/19/2008 Knee Right: Knee [employer] 6307 / NA / [id number] Stem Fem Attune 84t57ts Rev Pressfit 1513-18-060 - [id number] Implanted:Qty: 1 on 04/26/2023 by Murali Allen MD at [facility] Knee Left: Knee [employer] [id number] 04/11/2031 [id number] / / [id number] Augment Fem Attune Post Sz7 4mm Rev 1549-07-001 - [id number] Implanted:Qty: 1 on 04/26/2023 by Murali Allen MD at [facility] Knee Left: Knee [employer] [id number] 03/11/2032 [id number] / / [id number] Sleeve Fem Attune Rev 35mm 151 - [id number] Implanted:Qty: 1 on 04/26/2023 by Murali Allen MD at [facility] Knee Left: Knee [employer] [id number] 12/10/2031 [id number] / / [id number] Insert Tib Attune Aox Rev Sz7 10mm 1517-10-710 - [id number] Implanted:Qty: 1 on 04/26/2023 by Murali Allen MD at [facility] Knee Left: Knee [employer] [id number] 09/10/2023 [id number] / / [id number] Comp Fem Attune Rev Crs Sz 7 Lt Cmntd 1504-40-107 - [id number] Implanted:Qty: 1 on 04/26/2023 by Murali Allen MD at [facility] Knee Left: Knee [employer] [id number] 11/10/2031 1504-40-107 / / [id number] Stem Fem Attune 73s45ee Rev Pressfit 151-18-060 - [id number] Implanted:Qty: 1 on 04/26/2023 by Murali Allen MD at [facility] Knee Left: Knee [employer] [id number] 07/12/2031 [id number] / / [id number] Sleeve Tib Attune Rev 45mm 151 - [id number] Implanted:Qty: 1 on 04/26/2023 by Murali Allen MD at [facility] Knee Left: Knee [employer] [id number] 10/10/2031 1511-11- / / [id number] Baseplate Tib Attune Rev Sz7 1506-60-007 - [id number] Implanted:Qty: 1 on 04/26/2023 by Murali Allen MD at [facility] Knee Left: Knee [employer] [id number] 12/10/2031 1506-60-007 / / [id number] Log 4915 - Betty Total Knee - 1 - Comp Fem Flex Gsm Sz 4-Rt Nkii [id number] Implanted:Qty: 1 on 08/19/2008 Right: Knee [employer] 85-6372-548- 02 / NA / [id number] Log 4915 - Betty Total Knee - 1 - Ins Prolng Flx Sz //5-Rt 9mm Jose Guadalupe Nkii [id number] Implanted:Qty: 1 on 08/19/2008 Right: Knee [employer] [id number]- / NA / [id number] Log 4915 - Betty Total Knee - 1 - Patella Prolng Flex Sz 1 8mm Nkii [id number] Implanted:Qty: 1 on 08/19/2008 Right: Knee [employer] 06-4307-094- 01 / NA / [id number] Explanted Type Area Funding Specialist Device Identifier Shelf Expiration Date Model / Serial / Lot Left Knee Femoral Component Explanted:Qty: 1 on 04/26/2023 by Murali Allen MD at [facility] Left: Knee Left Knee Tibial Component Explanted:Qty: 1 on 04/26/2023 by Murali Allen MD at [facility] Left: Knee Left Knee Polyethylene Component Explanted:Qty: 1 on 04/26/2023 by Murali Allen MD at [facility] Left: Knee Insurance MEDICARE PART A AND B [facility] RX DIANE PLANS (INTERNAL) [facility] Internal Plans Advance Directives For more information, please contact: [phone] * Full Code (Latest Code Status on File) Date Activated Date Inactivated Comments 04/26/2023 11:21 AM 04/27/2023 2:33 PM Care Teams Car Supervisor Relationship Specialty Start Date End Date Murali Cummings MD [address] [address] PCP - General Family Practice 04/04/14
--- OUTSIDE RECORDS SUMMARY | 2025-03-01 10:23 | XMS_ITS | Patient Health Record ---
Author Organization [facility] Address [address] [place] [address] Care Team Providers Care Flaring Machine Operator Name Role Phone Murali Cummings Primary Care Provider Tam Meeks Unavailable [phone] Sung Merino Unavailable [phone] Migration, Provider Unavailable Unavailable Allergies No Known Allergies Reason For Referral No Information Medications Medication SIG (Take, Route, Frequency, Duration) Notes Start Date End Date Status [facility] *Pick strength-form from [facility] for eRX* Active Lisinopril-hydroCHLO ROthiazide 20-12.5 MG Tablet 1 tablet Orally Once a day Active Lisinopril-hydroCHLO ROthiazide *Pick strength-form from [facility] for eRX* Active Benadryl Allergy 25 MG Tablet 1 tablet at bedtime as needed Orally Once a day Active Magnesium 400 MG Tablet 1 capsule with a meal Orally Once a day Active Lipitor *Pick strength-form from [facility] for eRX* Active Hydrocortisone 2.5 % Cream 1 application Externally Twice a day Not-Taking Adult Low Dose Aspirin *Reorder from [facility] for eRx and Interaction Alerts* Active Zinc 220 (50 Zn) MG Capsule 1 tablet Orally Once a day Active Cefdinir 300 MG Capsule as directed Orally Active ceFAZolin Sodium 2 GM Solution Reconstituted as directed Intravenous Not-Taking ProSource - Liquid 30 ml Orally Active Lorraine Active Famotidine 20 MG Tablet 1 tablet at bedtime as needed Orally Once a day Active Adults Multivitamin *Reorder fro [facility] for eRx and Interaction Alerts* Active Protonix 40 MG Tablet Delayed Release 1 tablet Orally Once a day Active Ascorbic Acid 500 MG Tablet 1 tablet Orally Once a day Active Lactobacillus - Capsule as directed Orally Active Theragran-M - Tablet as directed Orally Active rifAMPin 300 MG Capsule 1 capsule Orally twice a day; Duration: 90 days Active Aspirin 81 MG Tablet Delayed Release 1 tablet Orally Once a day Active Tylenol 8 Hour Arthritis Pain 650 MG Tablet Extended Release 2 tablets as needed Orally every 8 hrs Active Protonix *Pick strength-form from [facility] for eRX* Active Social History Tobacco Use: Social History Observation Description Date Details (start date - stop date) Never Smoker NA - NA Social History Tobacco Use: Social Info Question Answer Notes xTobacco Use/Smoking Are you a nonsmoker Additional Details Category Social Info Options Details [...] Smoking - No, Working currently? 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) use of antibiotics (Z79.2) Active confirmed Encounters Encounter Location Date Provider Diagnosis Migrated_Facility 0 0 04/06/2024 Provider Migration Migrated_Facility 0 0 04/07/2024 Provider Migration [facility] [address] [place] [address] [address] [place] [address] 03/20/2024 Sung Merino Plan Of Treatment Pending Test Test Name Order Date CBC w\ Auto Diff [id number] 07/27/2022 Comprehensive Metabolic Panel (CMP) 8005 3 07/27/2022 CRP [id number] 07/27/2022 Insurance Providers Payer Name Payer Address Payer Phone Subscriber Number Group Number Insured Name Patient Relationship to Insured Coverage Start Date Coverage End Date [place] [address] [place] [phone] [id number] Magen Juarez Self - patient is the insured [facility] [address] [place] [address] [id number] Magen Juarez Self - patient is the insured Medical (General) History Medical History History ICD Code measles mumps Heart Disease Arthritis Back Trouble High Blood Pressure GERD Rashes, Skin Problems Surgical History Surgery Date(Month/Year) bilateral knee replacements right hip replacement left shoulder replacement spur removal fusion c5/c6 stent Heart stents Knee replacement surgery left knee replacement Lumbar fusion Right Knee Revision Total Right hip Left Total Knee Arthroplasty Since 12/16
--- OUTSIDE RECORDS SUMMARY | 2025-03-01 10:23 | XMS_ITS | Encounter Summary ---
Author Organization [facility] Address [address] [place] [address] Care Team Providers Care Junior Software Engineer Name Role Phone Murali Cummings MD Primary Care Provider [phone] Reason for Referral * Outpatient Services (Routine) - Closed Specialty Diagnoses / Procedures Referred By Contac t Referred To Contact Diagnoses Severe LBP Procedures CT LUMBAR SPINE WO CONTRAST Murali Cummings MD [address] [address] Phone: tel: fax: [facility] Pre-Registration [place] CALL TO MAKE APPOINTMENT ONLY [address] [place] [address] Phone: tel: fax: Referral ID Status Reason Start Date Expiration Date V isits Requested Visits Authorized [id number] Closed [facility] TO SCHEDULE (SGF) 04/03/2014 05/04/2015 1 1 Encounter Details Date Type Department Care Team (Late st Contact Info) Description 04/03/2014 Ancillary Orders [facility] Pre-Registration [place] CALL TO MAKE APPOINTMENT ONLY [address] [place] [address] Murali Cummings MD [address] [facility] [address] [place] [address] Severe LBP (Primary Dx) Social History Tobacco Use Types Packs/Day Years Used Date Smoking Tobacco: Former Cigarettes 0 06/12/2002 - 06/12/2004 Smokeless Tobacco: Never Comments:2-3 cigs per day Alcohol Use Standard Drinks/Week Comments No 0 (1 standard drink = 0.6 oz pur e alcohol) Sex and Gender Information Value Date Recorded Sex Assigned at Not on file 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 Exam: CT LUMBAR SPINE WO CONTRAST Date/Time of Exam: Apr 17, 2014 10:47:18 AM Reason For Exam: Lumbago. Technique: CT of the lumbar spine was performed without the administration of intravenous contrast. Posterior fusion with hardware is present at the L4-L5 level. Solid bony union appears be present. No evidence of hardware failure is present. T12-L1: Normal. L1-L2: Normal. L2-L3: A mild diffuse bulge of the disc is present. Minimal spinal stenosis is present. Mild facet arthrosis is present. L3-L4: Moderate facet arthrosis is present with minimal subluxation. Diffuse bulge of the disc is present, probably causing at least mild to moderate spinal stenosis. Soft tissue detail of the spinal canal is poorly visualized however secondary to metallic streak artifact. L4-L5: The spinal canal and neural foramina appear widely patent. L5-S1: Mild to moderate facet arthrosis is present. Partial sacralization of the L5 vertebra is present on the left with chronic inflammatory changes adjacent to the sacrum. Impression: 1. Unremarkable fusion at L4-L5 with laminectomy. 2. Partial sacralization of the left at L5-S1 with chronic bony inflammatory changes. 3. Poorly visualized spinal canal at the L3-L4 secondary to metallic streak artifact. There appears to be at least mild to moderate spinal stenosis present however. Moderate facet arthrosis is is present with mild subluxation. Narrative Procedure Note Kvng Carver MD - 04/17/2014 IMPRESSION IMPRESSION: See report below. Exam: CT LUMBAR SPINE WO CONTRAST Date/Time of Exam: Apr 17, 2014 10:47:18 AM Reason For Exam: Lumbago. Technique: CT of the lumbar spine was performed without the administration of intravenous contrast. Posterior fusion with hardware is present at the L4-L5 level. Solid bony union appears be present. No evidence of hardware failure is present. T12-L1: Normal. L1-L2: Normal. L2-L3: A mild diffuse bulge of the disc is present. Minimal spinal stenosis is present. Mild facet arthrosis is present. L3-L4: Moderate facet arthrosis is present with minimal subluxation. Diffuse bulge of the disc is present, probably causing at least mild to moderate spinal stenosis. Soft tissue detail of the spinal canal is poorly visualized however secondary to metallic streak artifact. L4-L5: The spinal canal and neural foramina appear widely patent. L5-S1: Mild to moderate facet arthrosis is present. Partial sacralization of the L5 vertebra is present on the left with chronic inflammatory changes adjacent to the sacrum. Impression: 1. Unremarkable fusion at L4-L5 with laminectomy. 2. Partial sacralization of the left at L5-S1 with chronic bony inflammatory changes. 3. Poorly visualized spinal canal at the L3-L4 secondary to metallic streak artifact. There appears to be at least mild to moderate spinal stenosis present however. Moderate facet arthrosis is is present with mild subluxation. Murali Cummings MD CT ORDERABLES Final Result documented in this encounter Visit Diagnoses Diagnosis Severe LBP- Primary Lumbago Severe LBP Lumbago documented in this encounter Care Teams Junior Software Engineer Relationship Specialty Start Date End Date Murali Cummings MD [address] [place] [address] PCP - General Family Practice 04/04/14 documented as of this encounter
--- NOTE | 2025-03-01 10:36 | CTR_ITS ---
PROCEDURE INFORMATION: Exam: CT Abdomen And Pelvis With Contrast Exam date and time: 03/01/2025 11:39 AM Age: 79 years old Clinical indication: Abdominal pain; Rebound pain; Right lower quadrant (rlq); Prior surgery; Surgery date: 6+ months; Surgery type: Lumbar, right hip; Additional info: Abd pain TECHNIQUE: Imaging protocol: Computed tomography of the abdomen and pelvis with contrast. Total images: 416 Radiation optimization: All CT scans at this facility use at least one of these dose optimization techniques: automated exposure control; mA and/or kV adjustment per patient size (includes targeted exams where dose is matched to clinical indication); or iterative reconstruction. Contrast material: OMNIPAQUE 350; Contrast volume: 100 ml; Contrast route: INTRAVENOUS (IV); COMPARISON: CR XR abdomen min 2V [id number] 01/17/2020 9:41 AM RADIATION DOSE METRICS: Total DLP (mGy-cm): 848.93 FINDINGS: Lungs: Mild dependent atelectasis. Liver: Normal. No mass. Gallbladder and biliary ducts: Normal. No calcified stones. No ductal dilation. Pancreas: Normal. No ductal dilation. Spleen: Normal. No splenomegaly. Adrenal glands: Normal. No mass. Kidneys and ureters: Nonobstructive left sided kidney stone measures 2 mm. Stomach and bowel: Mild gastric distention by food material likely indicates recent meal. Appendix: 10 mm diameter appendix features surrounding inflammation, consistent with acute appendicitis. An appendicolith is visualized. No perforation. Intraperitoneal space: Unremarkable. No free air. No significant fluid collection. Vasculature: Incidental phleboliths noted. Lymph nodes: Unremarkable. No enlarged lymph nodes. Urinary bladder: There is nonspecific urinary bladder wall thickening, under distention versus cystitis. Reproductive: Prostatomegaly noted. Bones/joints: Right hip arthroplasty is present. Bilateral SI joint bridging osteophytes. L4-L5 Posterior spinal fusion is noted. Rods and pedicle screws are in place and there is no evidence of hardware failure. L2-4 degenerative disc disease is noted with vacuum phenomenon. Osteophytes are noted extending from the vertebrae. No acute spinal pathology is detected. Thoracic spondylosis is present. Soft tissues: Bilateral fat-containing inguinal hernia. Other findings: Mild atherosclerotic disease burden is evident. CT/CT abdomen pelvis w con* [id number] IMPRESSION: 1. 10 mm diameter appendix features surrounding inflammation, consistent with acute appendicitis. An appendicolith is visualized. No perforation. 2. There is nonspecific urinary bladder wall thickening, under distention versus cystitis.
--- NOTE | 2025-03-01 10:40 | W.ED.ABDPA2 ---
HPI - Abdominal Pain General: Chief Complaint: Abdominal Pain Stated Complaint: Sharp Pain Lower R side Time Seen by Provider: 03/01/25 10:32 Source: patient Mode of arrival: ambulatory Limitations: no limitations History of Present Illness: 79-year-old male states he has had right lower quadrant abdominal pain that started this morning at 9 AM. He states the pain is sharp in nature rates an 8 out of 10 is much worse with movement and palpation. He denies any previous abdominal surgeries he denies any vomiting denies any fever denies any dysuria. Denies any radiation of his pain. Associated Symptoms: Reports nausea; Denies fever(s) Related Data Home Medications ?Medication ?Instructions ?Recorded ?Confirmed lisinopril 20 1 tab PO DAILY 06/09/20 03/01/25 mg-hydrochlorothiazide 12.5 mg tablet pantoprazole 40 mg tablet,delayed 40 mg PO BID 06/09/20 03/01/25 release acetaminophen 650 mg 1,300 mg PO Q4-5H pain 01/30/23 03/01/25 tablet,extended release (Tylenol 8 Hour) ascorbic acid (vitamin C) 1,000 mg 1 g PO Q6H 01/29/24 03/01/25 capsule magnesium oxide 500 mg capsule 500 mg PO DAILY 01/29/24 03/01/25 famotidine 20 mg tablet 20 mg PO BID 01/27/25 03/01/25 glutathione 500 mg capsule 500 mg PO DAILY 03/01/25 03/01/25 zinc sulfate 50 mg zinc (220 mg) 50 mg PO DAILY 03/01/25 03/01/25 tablet Previous Rx's ?Medication ?Instructions ?Recorded aspirin 81 mg tablet,delayed 81 mg PO DAILY #30 tabs 06/09/20 release (Adult Aspirin Regimen) Allergies Allergy/AdvReac Type Severity Reaction Status Date / Time Arthrotec Allergy Unknown Unknown Uncoded 01/27/25 13:17 Review of Systems Const: Denies: fever(s) Card: Denies: chest pain Resp: Denies: dyspnea GI: Reports: abdominal pain and nausea : Denies: flank pain or difficulty urinating Musc: Denies: neck pain PFSH ED PFSH: Medical History Coronary artery disease Obesity Obstructive sleep apnea Hypertension Surgical History History of neck surgery History of carpal tunnel surgery History of knee replacement Family History Father CAD (coronary artery disease) Mother CAD (coronary artery disease) Social History Smoking and tobacco/nicotine status: never used tobacco/nicotine Alcohol intake: never Special laura needs: No Physical Exam Const: COMMON NORMALS: no acute distress, patient oriented x3 and healthy appearing HENMT: COMMON NORMALS: normocephalic and atraumatic HEAD & SCALP: normocephalic and atraumatic Neck/C-Spine: COMMON NORMALS: full ROM and supple Chest: COMMONS NORMALS: normal inspection of the chest Resp: COMMON NORMALS: normal respiratory effort Cardio: COMMON NORMALS: regular rate, regular rhythm and No murmurs present (Cardio) RATE: regular rate RHYTHM: regular rhythm GI: COMMON NORMALS: Normal to inspection, nondistended, normoactive bowel sounds present, Soft to palpation and no masses PALPATION: Yes Soft to palpation and Yes Tenderness to palpation present (GI) Details: RLQ Extremity: COMMON NORMALS: normal to inspection and full ROM Neuro: COMMON NORMALS: patient oriented x3, moves all extremities and no focal motor deficits Psych: COMMON NORMALS: mental status grossly normal, Normal thought process present and cooperative THOUGHT PROCESS: Normal thought process present Skin: COMMON NORMALS: no rashes or lesions noted and no wounds GENERAL SKIN EXAM: no rashes or lesions noted Course Vital Signs: Vital signs: Vital Signs Temperature 98.1 F 03/01/25 10:32 Pulse Rate 69 03/01/25 10:32 Respiratory Rate 18 03/01/25 10:32 Blood Pressure 138/84 03/01/25 12:00 Pulse Oximetry 99 03/01/25 12:00 Oxygen Delivery Me thod Room Air 03/01/25 12:00 MDM - Abdominal Pain Medical Decision Making Patient presents here with abdominal pain CT does show appendicitis patient was seen in the ER by Dr. Hamilton that is going to admit patient for his appendicitis. His white count here is normal no signs of sepsis I did inform patient of his appendicitis as well Medical Records I reviewed the patient's medical records. Lab Data I reviewed the patient's lab results. 03/01/25 10:40 03/01/25 10:40 Labs/Radiology: Radiology Impressions Abdomen/Pelvis CT 03/01/25 10:36 IMPRESSION: 1. 10 mm diameter appendix features surrounding inflammation, consistent with acute appendicitis. An appendicolith is visualized. No perforation. 2. There is nonspecific urinary bladder wall thickening, under distention versus cystitis. ADDENDUM: 03/01/25 1201 ADDENDUM: This report contains critical findings. The findings were verbally communicated via telephone conference at 11:59 AM CDT on 03/01/2025 with MCKENZIE ROSADO. The findings were acknowledged and understood. Laboratory Results WBC 10.14 10^3/uL (3.29-11.43) 03/01/25 10:40 RBC 5.34 10^6/uL (3.85-5.65) 03/01/25 10:40 Hgb 15.70 g/dL (11.27-16.99) 03/01/25 10:40 Hct 47.1 % (37-53) 03/01/25 10:40 MCV 88.2 fl (82-101) 03/01/25 10:40 MCH 29.4 pg (27-33) 03/01/25 10:40 MCHC 33.3 g/dL (30-55) 03/01/25 10:40 RDW 16.6 % (12.1-15.1) H 03/01/25 10:40 Plt Count 171 10^3/cmm (157-399) 03/01/25 10:40 MPV 9.4 fL (7.4-10.4) 03/01/25 10:40 Neut % (Auto) 74.4 % 03/01/25 10:40 Lymph % (Auto) 16.0 % 03/01/25 10:40 [place] % (Auto) 5.6 % 03/01/25 10:40 Eos % (Auto) 3.6 % 03/01/25 10:40 Baso % (Auto) 0.2 % 03/01/25 10:40 Neut # (Auto) 7.54 10^3/uL (1.8-7.7) 03/01/25 10:40 Lymph # (Auto) 1.6 10^3/uL (0.8-4.8) 03/01/25 10:40 [place] # (Auto) 0.6 10^3/uL (0.2-0.9) 03/01/25 10:40 Eos # (Auto) 0.4 10^3/uL (0.0-0.8) 03/01/25 10:40 Baso # (Auto) 0.0 10^3/uL (0.0-0.1) 03/01/25 10:40 Nucleated RBC % (auto) 0 % 03/01/25 10:40 Nucleated RBCs # 0.0 /100WBC 03/01/25 10:40 Sodium 138 mmol/L (136-145) 03/01/25 10:40 Potassium 4.1 mmol/L (3.5-5.1) 03/01/25 10:40 Chloride 101 mmol/L (98-107) 03/01/25 10:40 Carbon Dioxide 23 mmol/L (22-29) 03/01/25 10:40 Anion Gap 18.1 (5-19) 03/01/25 10:40 BUN 21 mg/dL (8-23) 03/01/25 10:40 Creatinine 0.9 mg/dL (0.7-1.2) 03/01/25 10:40 GFR Calculation Not Reportable 03/01/25 10:40 Glucose 151 mg/dL (65-115) H 03/01/25 10:40 Calculated Osmolality 292 mOsm/kg (285-295) 03/01/25 10:40 Calcium 9.4 mg/dL (8.5-10.5) 03/01/25 10:40 Total Bilirubin 0.7 mg/dL (0.15-1.2) 03/01/25 10:40 AST 59 U/L (0-40) H 03/01/25 10:40 ALT 52 U/L (0-41) H 03/01/25 10:40 Alkaline Phosphatase 92 U/L (40-130) 03/01/25 10:40 Total Protein 7.2 g/dL (6.6-8.7) 03/01/25 10:40 Albumin 4.4 g/dL (3.5-5.2) 03/01/25 10:40 Globulin 2.8 g/dL (1.3-4.6) 03/01/25 10:40 Lipase 37 U/L (13-60) 03/01/25 10:40 Urine Color Yellow (Yellow) 03/01/25 11:35 Urine Appearance Clear (CLEAR) 03/01/25 11:35 Urine pH 6.0 (5-7) 03/01/25 11:35 Ur Specific [place] 1.029 (1.005-1.030) 03/01/25 11:35 Urine Protein Trace (Negative) A 03/01/25 11:35 Urine Glucose (UA) Negative (Normal) 03/01/25 11:35 Urine Ketones Trace (Negative) 03/01/25 11:35 Urine Blood Negative (Negative) 03/01/25 11:35 Urine Nitrate Negative (Negative) 03/01/25 11:35 Urine Bilirubin Negative (Negative) 03/01/25 11:35 Urine Urobilinogen 1.0 mg/dL (Negative) 03/01/25 11:35 Ur Leukocyte Esterase Negative (Negative) 03/01/25 11:35 Amorphous Sediment Not Reportable 03/01/25 11:35 All radiology interpretation(s) finalized by discharge Discharge Plan Discharge Patient Disposition: Admitted As Inpatient Clinical Impression: Acute appendicitis Condition: Stable Coding Level of Care Code ED Tax Representative for Andrew Stern
[2025-03-01 10:44] LABS: Hematocrit 47.1 % (37-53); Hemoglobin 15.70 g/dL (11.27-16.99); Mean Corpuscular HGB Conc 33.3 g/dL (30-55); Mean Corpuscular Hemoglobin 29.4 pg (27-33); Mean Corpuscular Volume 88.2 fl (82-101); Nucleated Red Blood Cells % 0 %; Platelet Count 171 10^3/cmm (157-399); Red Blood Count 5.34 10^6/uL (3.85-5.65); White Blood Count 10.14 10^3/uL (3.29-11.43)
[2025-03-01] MEDS: ondansetron 2 mg/ML SDV 2 mL 4 MG IVP (10:51)
[2025-03-01] MEDS: morphine 4 mg/mL SDV 1 mL IVP ×2 (10:51→11:11)
[2025-03-01 11:01] LABS: Alanine Aminotransferase 52 U/L (0-41); Albumin Level 4.4 g/dL (3.5-5.2); Alkaline Phosphatase 92 U/L (40-130); Anion Gap 18.1 (5-19); Aspartate Amino Transferase 59 U/L (0-40); Blood Urea Nitrogen 21 mg/dL (8-23); Calcium 9.4 mg/dL (8.5-10.5); Carbon Dioxide 23 mmol/L (22-29); Chloride 101 mmol/L (98-107); Creatinine Clr Calc Pharmacy 73.5335; Globulin 2.8 g/dL (1.3-4.6); Glucose 151 mg/dL (65-115); Lipase 37 U/L (13-60); Osmolality Calculated 292 mOsm/kg (285-295); Potassium 4.1 mmol/L (3.5-5.1); Sodium 138 mmol/L (136-145); Total Protein 7.2 g/dL (6.6-8.7)
[2025-03-01] MEDS: iohexol 350 mg/mL 500 mL Btl (per mL) IV (11:42)
[2025-03-01] MEDS: piperacillin-tazobactam 3.375 GM in sodium chloride 0.9% (plus) 50 ML IV ×2 (12:10→20:22)
--- NOTE | 2025-03-01 12:13 | PC.NURSE ---
pt ABT started, changed into gown, IV intact and patent, Allergy band on ID band on. Pt aware of surgery.
[2025-03-01 12:18] LABS: Glucose Urine UA Negative (Normal); Nitrate Urine Negative (Negative); Specific Gravity, Urine 1.029 (1.005-1.030)
--- NOTE | 2025-03-01 12:22 | PM.HP ---
Providers/Chief Complaint Primary Care Provider: Murali Cummings MD Chief Complaint: Sharp Pain Lower R side History of Present Illness Magen Juarez is a 79 year old male who presents to the hospital with abdominal pain starting this morning. According to the patient the pain started on the right side and has becoming more intense as the morning has gone along, he has some chills but no fever. No nausea or vomiting. Last meal was at 9 AM. Review of Systems General: Reports: 10 or more systems reviewed and unremarkable except in HPI and below Medications/Allergies Home Medications ?Medication ?Instructions ?Recorded ?Confirmed ?Last Taken ?Type aspirin 81 mg tablet,delayed 81 mg PO DAILY #30 tabs 06/09/20 03/01/25 06/03/23 Rx release (Adult Aspirin Regimen) lisinopril 20 1 tab PO DAILY 06/09/20 03/01/25 06/03/23 History mg-hydrochlorothiazide 12.5 mg tablet pantoprazole 40 mg tablet,delayed 40 mg PO BID 06/09/20 03/01/25 06/03/23 History release acetaminophen 650 mg 1,300 mg PO Q4-5H pain 01/30/23 03/01/25 05/04/23 History tablet,extended release (Tylenol 8 Hour) ascorbic acid (vitamin C) 1,000 mg 1 g PO Q6H 01/29/24 03/01/25 Unknown History capsule magnesium oxide 500 mg capsule 500 mg PO DAILY 01/29/24 03/01/25 Unknown History famotidine 20 mg tablet 20 mg PO BID 01/27/25 03/01/25 Unknown History glutathione 500 mg capsule 500 mg PO DAILY 03/01/25 03/01/25 Unknown History zinc sulfate 50 mg zinc (220 mg) 50 mg PO DAILY 03/01/25 03/01/25 Unknown History tablet Allergies Allergy/AdvReac Type Severity Reaction Status Date / Time Arthrotec Allergy Unknown Unknown Uncoded 01/27/25 13:17 PFSH Acute PFSH: Medical History (Updated 03/01/25 @ 12:22 by Ceci Denise MD) Coronary artery disease Obesity Obstructive sleep apnea Hypertension Surgical History History of neck surgery History of carpal tunnel surgery History of knee replacement Family History Father CAD (coronary artery disease) Mother CAD (coronary artery disease) Social History Smoking and tobacco/nicotine status: never used tobacco/nicotine Alcohol intake: never Special laura needs: No Vitals/I&O/Wt Last Vital Signs Temp 98.1 F 03/01/25 10:32 Pulse 69 03/01/25 10:32 Resp 18 03/01/25 10:32 BP 138/84 03/01/25 12:00 Pulse Ox 99 03/01/25 12:00 O2 Del Method Room Air 03/01/25 12:00 Weight last 48 hrs Weight 205 lb Physical Exam GI: OTHER: Abdomen soft, there is significant tenderness in the right lower quadrant, McBurney sign is positive. Data 03/01/25 10:40 03/01/25 10:40 A&P Assessment and plan 1. Acute appendicitis: Plan: Is a 79-year-old male presenting with acute appendicitis verified by imaging. CT there is inflammation of the appendix and appendicolith no evidence of perforation at this time. White count is normal, vital signs are normal. After discussion of all risk and benefits we have decided to offer the patient laparoscopic possible open appendectomy. I discussed the risk of bleeding, infection, abscess formation, injury to the adjacent structures including the small bowel: Ureter great vessels of the pelvis or bladder, need for additional interventions, need to conversion to open procedure, need for colectomy. I have also Explained that there is a risk of hernia formation in the future. After discussion of all risk benefits patient decides to proceed with the operation. Since patient ate at 9 AM I have discussed with anesthesia team and we have decided that the best course of action will be to wait until 5 PM. In the interim we will start the patient on IV antibiotics and pain control. PDMP PDMP Reviewed: Not Reviewed Attestations Medical Necessity Statement*: Patient will be discharged early in the morning tomorrow Coding Level of Care Code Acute Code for [facility] Diagnoses Acute appendicitis K35.80
[2025-03-01 12:23] LABS: Add Urine Microscopic? YES
[2025-03-01] MEDS: HYDROmorphone 0.5 MG/0.5 ML INJ 1 MG IVP (12:48)
--- NOTE | 2025-03-01 13:14 | PC.NURSE ---
pt O2 sat while resting with eyes closed drops to 88%, pt reports wearing a cpap at night while sleeping, pt placed on 2L NC. Pt reports pain is mush better now.
--- NOTE | 2025-03-01 14:05 | PC.NURSE ---
attempted to call report at [phone], med surg nurse Pallavi is to call back.
--- NOTE | 2025-03-01 14:11 | PC.NURSE ---
Pt daughter request mouth swabs, educated on pt is to have nothing to eat or drink, just to swab mouth with water d/t pt c/o dry mouth. Voiced understanding.
--- NOTE | 2025-03-01 16:52 | ANES.PREANE2 ---
Pre-Anesthetic Assessment Height/Weight: Height 1.7 m Weight 93.531 kg Temp Pulse Resp BP Pulse Ox O2 Del Method O2 Flow Rate 97.2 F L 83 18 113/65 94 Room Air 2 03/01/25 15:45 03/01/25 15:45 03/01/25 15:45 03/01/25 15:45 03/01/25 15:45 03/01/25 15:45 03/01/25 13:30 Preop Diagnosis: Appendicitis Operation Date: 03/01/25 17:00 Proposed Procedures p Laparoscopic Appendectomy(Not Applicable) - Mart Hamilton MD Was Beta [place] taken within 24 hours: N/A Was Clonidine taken within 24 hours: N/A Social No alcohol and No tobacco Exam alert, oriented x 3, clear to auscultation bilaterally and regular rate & rhythm Airway Submandibular: within normal limits Cervical ROM: Other Mallampati: Class III Dentition: full Comments: Comments: Poor cervical ROM History/ROS No significant history except as noted and No significant complaints Pulmonary None reported CV/HEM Coronary Artery Disease (Stent 2020) and Hypertension None reported Hepatic None reported GI Gastroesophageal Reflux Disease Musc/skel Lower Back Pain and Osteoarthritis/DJD Neuropsych None reported Anesthetic Plan ASA status: 3E Anesthesia: Anesthesia Evaluation and General Risk of > 500 ml blood loss (7ml/kg in children): No Medications/Allergies Home Medications ?Medication ?Instructions ?Recorded ?Confirmed ?Last Taken ?Type aspirin 81 mg tablet,delayed 81 mg PO DAILY #30 tabs 06/09/20 03/01/25 06/03/23 Rx release (Adult Aspirin Regimen) lisinopril 20 1 tab PO DAILY 06/09/20 03/01/25 06/03/23 History mg-hydrochlorothiazide 12.5 mg tablet pantoprazole 40 mg tablet,delayed 40 mg PO BID 06/09/20 03/01/25 06/03/23 History release acetaminophen 650 mg 1,300 mg PO Q4-5H pain 01/30/23 03/01/25 05/04/23 History tablet,extended release (Tylenol 8 Hour) ascorbic acid (vitamin C) 1,000 mg 1 g PO Q6H 01/29/24 03/01/25 Unknown History capsule magnesium oxide 500 mg capsule 500 mg PO DAILY 01/29/24 03/01/25 Unknown History famotidine 20 mg tablet 20 mg PO BID 01/27/25 03/01/25 Unknown History glutathione 500 mg capsule 500 mg PO DAILY 03/01/25 03/01/25 Unknown History zinc sulfate 50 mg zinc (220 mg) 50 mg PO DAILY 03/01/25 03/01/25 Unknown History tablet Allergies Allergy/AdvReac Type Severity Reaction Status Date / Time Arthrotec Allergy Unknown Unknown Uncoded 01/27/25 13:17 Current Medications Generic Name Dose Route Start Last Admin Trade Name Vahe PRN Reason Stop Dose Admin Lactated Ringer's 1,000 mls @ 75 mls/hr 03/01/25 15:00 03/01/25 15:18 Lactated Ringers IV 75 mls/hr .[id number] MINDI Administration Ketorolac Tromethamine 15 mg 03/01/25 14:32 03/01/25 15:18 Ketorolac 30 Mg/Ml Inj IVP 03/06/25 14:31 15 mg Q6H MINDI Administration PFSH Anesthesia Medical History (Updated 03/01/25 @ 12:22 by Ceci Denise MD) Coronary artery disease Obesity Obstructive sleep apnea Hypertension Surgical History History of neck surgery History of carpal tunnel surgery History of knee replacement Family History Father CAD (coronary artery disease) Mother CAD (coronary artery disease) Social History Smoking and tobacco/nicotine status: never used tobacco/nicotine Alcohol intake: never Special laura needs: No Data Anesthesia 03/01/25 10:40 03/01/25 10:40 Short CBC 03/01/25 Range/Units 10:40 WBC 10.14 (3.29-11.43) 10^3/uL Hgb 15.70 (11.27-16.99) g/dL Hct 47.1 (37-53) % MCV 88.2 (82-101) fl Plt Count 171 (157-399) 10^3/cmm Neut % (Auto) 74.4 % Neut # (Auto) 7.54 (1.8-7.7) 10^3/uL BMP 03/01/25 10:40 Sodium 138 Potassium 4.1 Chloride 101 Carbon Dioxide 23 BUN 21 Creatinine 0.9 Glucose 151 H Calcium 9.4 Liver Function 03/01/25 Range/Units 10:40 Total Bilirubin 0.7 (0.15-1.2) mg/dL AST 59 H (0-40) U/L ALT 52 H (0-41) U/L Alkaline Phosphatase 92 (40-130) U/L Albumin 4.4 (3.5-5.2) g/dL Urine 03/01/25 Range/Units 11:35 Urine Color Yellow (Yellow) Urine Appearance Clear (CLEAR) Urine pH 6.0 (5-7) Ur Specific [place] 1.029 (1.005-1.030) Urine Protein Trace A (Negative) Urine Glucose (UA) Negative (Normal) Urine Ketones Trace (Negative) Urine Nitrate Negative (Negative) Urine Bilirubin Negative (Negative) Ur Leukocyte Esterase Negative (Negative) Urine RBC 3-5 (0-2) /hpf Urine WBC 0-5 (0-5) /hpf Cardiac Studies: Sestamibi Stress Test (Cardiology) 06/03/20
[2025-03-01] MEDS: ceFAZolin 2,000 mg SDV 2000 MG IVP (17:00)
--- NOTE | 2025-03-01 17:06 | ANES.PREANE2 ---
Pre-Anesthetic Assessment Height/Weight: Height 1.7 m Weight 93.531 kg Temp Pulse Resp BP Pulse Ox O2 Del Method O2 Flow Rate 97.2 F L 83 18 113/65 94 Room Air 2 03/01/25 15:45 03/01/25 15:45 03/01/25 15:45 03/01/25 15:45 03/01/25 15:45 03/01/25 15:45 03/01/25 13:30 Preop Diagnosis: Appendicitis Operation Date: 03/01/25 17:00 Proposed Procedures p Laparoscopic Appendectomy(Not Applicable) - Mart Hamilton MD Medications/Allergies Home Medications ?Medication ?Instructions ?Recorded ?Confirmed ?Last Taken ?Type aspirin 81 mg tablet,delayed 81 mg PO DAILY #30 tabs 06/09/20 03/01/25 06/03/23 Rx release (Adult Aspirin Regimen) lisinopril 20 1 tab PO DAILY 06/09/20 03/01/25 06/03/23 History mg-hydrochlorothiazide 12.5 mg tablet pantoprazole 40 mg tablet,delayed 40 mg PO BID 06/09/20 03/01/25 06/03/23 History release acetaminophen 650 mg 1,300 mg PO Q4-5H pain 01/30/23 03/01/25 05/04/23 History tablet,extended release (Tylenol 8 Hour) ascorbic acid (vitamin C) 1,000 mg 1 g PO Q6H 01/29/24 03/01/25 Unknown History capsule magnesium oxide 500 mg capsule 500 mg PO DAILY 01/29/24 03/01/25 Unknown History famotidine 20 mg tablet 20 mg PO BID 01/27/25 03/01/25 Unknown History glutathione 500 mg capsule 500 mg PO DAILY 03/01/25 03/01/25 Unknown History zinc sulfate 50 mg zinc (220 mg) 50 mg PO DAILY 03/01/25 03/01/25 Unknown History tablet Allergies Allergy/AdvReac Type Severity Reaction Status Date / Time Arthrotec Allergy Unknown Unknown Uncoded 01/27/25 13:17 Current Medications Generic Name Dose Route Start Last Admin Trade Name Freq PRN Reason Stop Dose Admin Lactated Ringer's 1,000 mls @ 75 mls/hr 03/01/25 15:00 03/01/25 15:18 Lactated Ringers IV 75 mls/hr .[id number] MINDI Administration Ketorolac Tromethamine 15 mg 03/01/25 14:32 03/01/25 15:18 Ketorolac 30 Mg/Ml Inj IVP 03/06/25 14:31 15 mg Q6H MINDI Administration PFSH Anesthesia Medical History (Updated 03/01/25 @ 12:22 by Ceci Denise MD) Coronary artery disease Obesity Obstructive sleep apnea Hypertension Surgical History History of neck surgery History of carpal tunnel surgery History of knee replacement Family History Father CAD (coronary artery disease) Mother CAD (coronary artery disease) Social History Smoking and tobacco/nicotine status: never used tobacco/nicotine Alcohol intake: never Special laura needs: No Data Anesthesia 03/01/25 10:40 03/01/25 10:40 Short CBC 03/01/25 Range/Units 10:40 WBC 10.14 (3.29-11.43) 10^3/uL Hgb 15.70 (11.27-16.99) g/dL Hct 47.1 (37-53) % MCV 88.2 (82-101) fl Plt Count 171 (157-399) 10^3/cmm Neut % (Auto) 74.4 % Neut # (Auto) 7.54 (1.8-7.7) 10^3/uL BMP 03/01/25 10:40 Sodium 138 Potassium 4.1 Chloride 101 Carbon Dioxide 23 BUN 21 Creatinine 0.9 Glucose 151 H Calcium 9.4 Liver Function 03/01/25 Range/Units 10:40 Total Bilirubin 0.7 (0.15-1.2) mg/dL AST 59 H (0-40) U/L ALT 52 H (0-41) U/L Alkaline Phosphatase 92 (40-130) U/L Albumin 4.4 (3.5-5.2) g/dL Urine 03/01/25 Range/Units 11:35 Urine Color Yellow (Yellow) Urine Appearance Clear (CLEAR) Urine pH 6.0 (5-7) Ur Specific [place] 1.029 (1.005-1.030) Urine Protein Trace A (Negative) Urine Glucose (UA) Negative (Normal) Urine Ketones Trace (Negative) Urine Nitrate Negative (Negative) Urine Bilirubin Negative (Negative) Ur Leukocyte Esterase Negative (Negative) Urine RBC 3-5 (0-2) /hpf Urine WBC 0-5 (0-5) /hpf Cardiac Studies: Sestamibi Stress Test (Cardiology) 06/03/20
--- NOTE | 2025-03-01 17:06 | ANE.PACU2 ---
Inpatient post-anesthesia follow up: Vital signs: Temperature 97.2 F Pulse Rate 83 Respiratory Rate 18 Blood Pressure 113/65 Pulse Oximetry 94 Oxygen Delivery Me thod Room Air Oxygen Flow Rate 2 Fraction of Inspir ed Oxygen
[2025-03-01] MEDS: lidocaine-epi 1% 20 mL INJ 10 ML INJECTION (17:11)
[2025-03-01] MEDS: BUPivacaine 0.25% INJ 10 mL INJECTION (17:11)
--- NOTE | 2025-03-01 17:53 | PM.OP ---
Operative Report Date of procedure: March 01, 2025 Pre-op diagnosis: Acute appendicitis Post-op diagnosis: Acute appendicitis Post-op findings: There was an inflamed appendix in a retrocecal but intraperitoneal position. No evidence of perforation. Healthy base. 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 General anesthesia was given. The abdomen was prepped and draped in the usual sterile fashion. Timeout was conducted. The abdomen was accessed via left upper quadrant 5 mm incision using Optiview trocar. Initial pneumoperitoneum was obtained and no evidence of visceral injury during entry was noted. Additional 5 mm trocar was placed in the suprapubic position and a 12 mm trocar was placed in a supraumbilical position both under direct visualization. The patient was placed in a steep Trendelenburg with the left side down. The cecum was identified. The appendix appeared to be in a retrocecal intraperitoneal position, after propping up the cecum with a Ray-Paola I was able to grasp the tip of the appendix and deflected towards the inferior medial position, after this was done I was able to take down the mesoappendix from the tip of the appendix to the base using LigaSure, I did this taking careful consideration of not injuring the adjacent structures. The base of the appendix appeared healthy. I transected the appendix at the base with a 45 mm blue load Endo ИРИНА stapler. The specimen was retrieved through the supraumbilical trocar using an Endo Catch bag. The staple line appeared healthy and hemostatic. Ray-Paola was removed from the abdomen. The supraumbilical trocar was removed and the trocar site was closed with #0 Vicryl using Rakesh-Sarah suture passer under direct visualization. The suprapubic trocar was removed under direct visualization the left upper quadrant trocar was used to evacuate the pneumoperitoneum up subsequently removed. The wounds were closed in layers using #3-0 Vicryl for subcutaneous tissue #4 Monocryl for the skin and Dermabond was applied. Before closure of the wounds local anesthesia was applied. At the end of the procedure all counts were correct the patient tolerated well the procedure was transferred to the PACU in stable condition.
[2025-03-01] MEDS: oxyCODONE 5 mg IR Tab/Cap PO (21:19)
[2025-03-02 03:00] VITALS: BP 101/60; PULSE 60; RESP 19; TEMP 36.5; O2SAT 94
[2025-03-02] MEDS: piperacillin-tazobactam 3.375 GM in sodium chloride 0.9% (plus) 50 ML IV (04:12)
[2025-03-02 04:14] VITALS: RESP 16
[2025-03-02] MEDS: oxyCODONE 5 mg IR Tab/Cap PO (04:14)
[2025-03-02 07:00] VITALS: BP 114/56; PULSE 59; RESP 17; TEMP 36.8; O2SAT 91
--- NOTE | 2025-03-02 08:52 | PM.DCS ---
Discharge Providers Date of Admission: 03/01/25 12:20 Date of Discharge: March 02, 2025 Attending Provider at Admission: Mart Hamilton MD Attending Provider at Discharge: Mart Hamilton MD Primary Care Provider: Murali Cummings MD Diagnoses at Discharge Discharge Diagnosis 1. Acute appendicitis: Reason for Visit Reason for Visit: Sharp Pain Lower R side Hospital Course Hospital Course 79-year-old male presenting with acute appendicitis, he underwent an uncomplicated laparoscopic appendectomy. Stay in the hospital overnight for monitoring, by the morning has been voiding tolerating diet only having some mild to moderate right-sided abdominal pain but other than that feeling quite good. He will be allowed to transition to the outpatient setting with a 7-day course of antibiotics and pain control Physical Exam GI: OTHER: Benign abdominal exam surgical incisions covered with Dermabond Discharge Data Studies Completed and Pending Completed Studies During Hospitalization Category Date Time Status CT abdomen pelvis w con* [id number] Stat Cat Scan 03/01/25 10:36 Completed Pending at discharge Category Date Time Status Pathology: Surgical [PTH] Routine Pth 03/01/25 18:00 Ordered Radiology Impressions Abdomen/Pelvis CT 03/01/25 10:36 IMPRESSION: 1. 10 mm diameter appendix features surrounding inflammation, consistent with acute appendicitis. An appendicolith is visualized. No perforation. 2. There is nonspecific urinary bladder wall thickening, under distention versus cystitis. ADDENDUM: 03/01/25 1201 ADDENDUM: This report contains critical findings. The findings were verbally communicated via telephone conference at 11:59 AM CDT on 03/01/2025 with MCKENZIE ROSADO. The findings were acknowledged and understood. Laboratory Results WBC 10.14 10^3/uL (3.29-11.43) 03/01/25 10:40 RBC 5.34 10^6/uL (3.85-5.65) 03/01/25 10:40 Hgb 15.70 g/dL (11.27-16.99) 03/01/25 10:40 Hct 47.1 % (37-53) 03/01/25 10:40 MCV 88.2 fl (82-101) 03/01/25 10:40 MCH 29.4 pg (27-33) 03/01/25 10:40 MCHC 33.3 g/dL (30-55) 03/01/25 10:40 RDW 16.6 % (12.1-15.1) H 03/01/25 10:40 Plt Count 171 10^3/cmm (157-399) 03/01/25 10:40 MPV 9.4 fL (7.4-10.4) 03/01/25 10:40 Neut % (Auto) 74.4 % 03/01/25 10:40 Lymph % (Auto) 16.0 % 03/01/25 10:40 [place] % (Auto) 5.6 % 03/01/25 10:40 Eos % (Auto) 3.6 % 03/01/25 10:40 Baso % (Auto) 0.2 % 03/01/25 10:40 Neut # (Auto) 7.54 10^3/uL (1.8-7.7) 03/01/25 10:40 Lymph # (Auto) 1.6 10^3/uL (0.8-4.8) 03/01/25 10:40 [place] # (Auto) 0.6 10^3/uL (0.2-0.9) 03/01/25 10:40 Eos # (Auto) 0.4 10^3/uL (0.0-0.8) 03/01/25 10:40 Baso # (Auto) 0.0 10^3/uL (0.0-0.1) 03/01/25 10:40 Nucleated RBC % (auto) 0 % 03/01/25 10:40 Nucleated RBCs # 0.0 /100WBC 03/01/25 10:40 Sodium 138 mmol/L (136-145) 03/01/25 10:40 Potassium 4.1 mmol/L (3.5-5.1) 03/01/25 10:40 Chloride 101 mmol/L (98-107) 03/01/25 10:40 Carbon Dioxide 23 mmol/L (22-29) 03/01/25 10:40 Anion Gap 18.1 (5-19) 03/01/25 10:40 BUN 21 mg/dL (8-23) 03/01/25 10:40 Creatinine 0.9 mg/dL (0.7-1.2) 03/01/25 10:40 GFR Calculation Not Reportable 03/01/25 10:40 Glucose 151 mg/dL (65-115) H 03/01/25 10:40 Calculated Osmolality 292 mOsm/kg (285-295) 03/01/25 10:40 Calcium 9.4 mg/dL (8.5-10.5) 03/01/25 10:40 Total Bilirubin 0.7 mg/dL (0.15-1.2) 03/01/25 10:40 AST 59 U/L (0-40) H 03/01/25 10:40 ALT 52 U/L (0-41) H 03/01/25 10:40 Alkaline Phosphatase 92 U/L (40-130) 03/01/25 10:40 Total Protein 7.2 g/dL (6.6-8.7) 03/01/25 10:40 Albumin 4.4 g/dL (3.5-5.2) 03/01/25 10:40 Globulin 2.8 g/dL (1.3-4.6) 03/01/25 10:40 Lipase 37 U/L (13-60) 03/01/25 10:40 Urine Color Yellow (Yellow) 03/01/25 11:35 Urine Appearance Clear (CLEAR) 03/01/25 11:35 Urine pH 6.0 (5-7) 03/01/25 11:35 Ur Specific Widener 1.029 (1.005-1.030) 03/01/25 11:35 Urine Protein Trace (Negative) A 03/01/25 11:35 Urine Glucose (UA) Negative (Normal) 03/01/25 11:35 Urine Ketones Trace (Negative) 03/01/25 11:35 Urine Blood Negative (Negative) 03/01/25 11:35 Urine Nitrate Negative (Negative) 03/01/25 11:35 Urine Bilirubin Negative (Negative) 03/01/25 11:35 Urine Urobilinogen 1.0 mg/dL (Negative) 03/01/25 11:35 Ur Leukocyte Esterase Negative (Negative) 03/01/25 11:35 Urine RBC 3-5 /hpf (0-2) 03/01/25 11:35 Urine WBC 0-5 /hpf (0-5) 03/01/25 11:35 Ur Squamous Epith Cells 0-5 /hpf (0-5) 03/01/25 11:35 Amorphous Sediment Not Reportable 03/01/25 11:35 Urine Bacteria None seen /hpf (NONE) 03/01/25 11:35 Hyaline Casts 0.81 /lpf 03/01/25 11:35 Vitals Last Vital Signs Temp 98.2 F 03/02/25 07:00 Pulse 59 L 03/02/25 07:00 Resp 17 03/02/25 07:00 BP 114/56 03/02/25 07:00 Pulse Ox 91 03/02/25 07:00 O2 Del Method Room Air 03/02/25 07:00 O2 Flow Rate 3 03/01/25 18:33 Discharge Plan Discharge Patient Disposition: Home Condition: Stable Prescriptions: New oxycodone 5 mg tablet 5 mg PO Q8H PRN (Reason: pain) 7 Days Qty: 20 0RF amoxicillin-pot clavulanate 875-125 mg tablet 1 tab PO BID 7 Days Qty: 14 0RF polyethylene glycol 3350 [Miralax] 17 gram powder in packet 17 g PO DAILY 7 Days Qty: 7 0RF Continued pantoprazole 40 mg tablet,delayed release (DR/EC) 40 mg PO BID lisinopril-hydrochlorothiazide 20-12.5 mg tablet 1 tab PO DAILY aspirin [Adult Aspirin Regimen] 81 mg tablet,delayed release (DR/EC) 81 mg PO DAILY Qty: 30 2RF magnesium oxide 500 mg capsule 500 mg PO DAILY ascorbic acid (vitamin C) 1,000 mg capsule 1 g PO Q6H famotidine 20 mg tablet 20 mg PO BID zinc sulfate 50 mg zinc (220 mg) Tablet 50 mg PO DAILY glutathione 500 mg Capsule 500 mg PO DAILY Changed acetaminophen [Tylenol 8 Hour] 650 mg tablet extended release 1,300 mg PO Q6H 5 Days Qty: 40 0RF Discharge Order = DC NOW: Discharge Order (Routine); Ordered 03/02/25 Ordered By: Mart Hamilton Referrals: Murali Cummings MD [Primary Care Provider, Family Practice] Mart Hamilton MD [Physician, General Surgery] Referral Note: 2 weeks Discharge Diet: Advance as tolerated Discharge Activity: Limit activity as instructed Patient Instructions: Acute Wound Care (DC), Opioid Safety, Post Anesthesia Care, Patient Portal & Evelin Instructions Activity Restrictions/Additional Instructions: General Instructions: Please do not lift anything heavier than 10 pounds, for the next 4 to 6 weeks. You can walk is much as possible, this will help you recover faster. You can shower starting the day after tomorrow, let soap and water run over your wound and then pat dry. Please take your medication as indicated if you are taking opioids please do not forget to take a stool softener Warning signs: Return to the hospital if you have fever, chills, severe abdominal pain that is getting worse over time despite your pain medication or if your wounds appear purulent Discharge Attestations Time Spent in Discharge Care*: less than 30 min Quality Metrics Clinical Quality Measures [ No reported AMI, CVA or VTE this stay] Coding Level of Care Code Acute Code for [facility] Fwd Diagnoses Acute appendicitis K35.80
[2025-03-02 10:25] VITALS: BP 114/56; PULSE 88; RESP 18; TEMP 36.7; O2SAT 90
--- NOTE | 2025-03-02 12:26 | PC.SOCIAL ---
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
== END 2025-03-02 10:30 | disposition home or self-care (01) ==
LOC: ER 10:42 → OR 12:09 → ER 12:19 → MEDSURG 13:52
PROVIDERS: Admitting Provider Surgery; Emergency Provider Emergency Medicine; PCP Family Medicine; Visit Provider Surgery
PROC: 0DTJ4ZZ Resection of Appendix, Percutaneous Endoscopic Approach (ICD-10-PCS; CPT 44970; principal; 2025-03-01 17:00)
DX: K35.80 Unspecified acute appendicitis (principal); I25.10 Atherosclerotic heart disease of native coronary artery without angina pectoris; Z95.5 Presence of coronary angioplasty implant and graft; I10 Essential (primary) hypertension; K21.9 Gastro-esophageal reflux disease without esophagitis; Z79.82 Long term (current) use of aspirin; E66.9 Obesity, unspecified; Z68.33 Body mass index [BMI] 33.0-33.9, adult; G47.33 Obstructive sleep apnea (adult) (pediatric)
CPT/HCPCS: 44970; 36415; 74177; 80053; 81001; 83690; 85025; 88304; 96365; 96375; 96376; 99285; A4216; G0378; J0131; J0330; J0690; J1100; J1171; J1885; J2270; J2405; J2543; J2704; J3010; J3490; J7120; J9999

== ENCOUNTER → 2025-03-05 16:13 | Outpatient (BNVA) | payer MEDICARE, OTHER, SELFPAY | PROVIDERS: PCP Family Medicine; Visit Provider Surgery | DX: Z98.890 Other specified postprocedural states (principal) | CPT/HCPCS: 99024 ==

== ENCOUNTER → 2025-03-25 08:40 | Outpatient (BNVA) | payer MEDICARE, OTHER, SELFPAY | PROVIDERS: PCP Family Medicine; Visit Provider Surgery | DX: Z90.49 Acquired absence of other specified parts of digestive tract (principal); Z98.890 Other specified postprocedural states | CPT/HCPCS: 99024 ==

== ENCOUNTER 2025-05-03 09:44 | Emergency (ER) | payer MEDICARE, OTHER, SELFPAY ==
--- OUTSIDE RECORDS SUMMARY | 2024-04-06 03:00 | XMS_ITS ---
Author Organization [facility] Address [address] [place] [address] Care Team Providers Care Vmware Architect Name Role Phone Murali Cummings Primary Care Provider Unavailabl e Tam Crenshaw Unavailable [phone] Migration, Provider Unavailable Unavailable REASON FOR VISIT EMR-Fredo Encounters Encounter Location Date Provider Diagnosis Migrated_Facility 0 0 04/06/2024 Provider Migration Plan Of Treatment No Information Progress Notes * Magen WOODS RDOB:[birth year] (79 yo M)Acc No.[id number]:04/06/2024 Patient: Jon HERRERAMagen :1945 A ge:78 Y S ex:Male Address:[address] [address] Subjective: * Chief Complaints: * E MR-Fredo * * Date:
--- OUTSIDE RECORDS SUMMARY | 2024-04-07 03:00 | XMS_ITS ---
Author Organization [facility] Address [address] [place] [address] Care Team Providers Care Recovery Analyst Name Role Phone Murali Cummings Primary Care Provider Tam Meeks Unavailable [phone] Migration, Provider Unavailable Unavailable REASON FOR VISIT EMR-Fredo Medications Medication SIG (Take, Route, Frequency, Duration) Notes Start Date End Date Status Adult Low Dose Aspirin *Reorder from Medispan for eRx and Interaction Alerts* Active Gregory-Mag *Pick strength-f orm from Medispan for eRX* Active Lisinopril-hydroCHLOR Othiazide *Pick strength-form from Medispan for eRX* Active Lipitor *Pick strength-f orm from Medispan for eRX* Active Protonix *Pick strength-f orm from Medispan for eRX* Active Adults Multivitamin *Reorder fro m Medispan for eRx and Interaction Alerts* Active Social History Social History Additional Details Category Social Info Options Details Migrated Social History Migrated Social History Alcoholic beverages? - No, Applying for disability? - No, Currently on disability? - No, Drug or substance abuse? - No, Education - Grade School, exposure to toxins/poisonous substances at work - No, I am interested in quitting. - No, Involved in any legal proceedings or lawsuits? - No, Marital Status - , Nonprescription drug use? - No, Participation in detoxification or rehabilitation - No, Smoked in the past? - No, Smoking - No, Working currently? - No Encounters Encounter Location Date Provider Diagnosis Migrated_Facility 0 0 04/07/2024 Provider Migration Plan Of Treatment No Information Progress Notes * Magen WOODS RDOB:[birth year] (79 yo M)Acc No.[id number]:04/07/2024 Patient: Magen HICKEY :1945 A ge:78 Y S ex:Male Address:[address] [place] [address] Subjective: * Chief Complaints: * E MR-Fredo * Surgical History: Heart stents Knee replacement surgery left knee replacement Left Shoulder Replacement Lumbar fusion Right Knee Revision Total Right hip Left Total Knee Arthroplasty Since 12/16/2020 * Social History: M igrated Social History: M igrated Social History: Alcoholic beverages? - No, A pplying for disability? - No, C urrently on disability? - No, D rug or substance abuse? - No, E ducation - Grade School, e xposure to toxins/poisonous substances at work - No, I am interested in quitting. - No, I nvolved in any legal proceedings or lawsuits? - No, M arital Status - , N onprescription drug use? - No, P articipation in detoxification or rehabilitation - No, S moked in the past? - No, S moking - No, W orking currently? - No. * Medications: T akingAdults Multivitamin , Notes to Pharmacist: *Reorder from Medispan for eRx and Interaction Alerts*Adult Low Dose Aspirin , Notes to Pharmacist: *Reorder from Medispan for eRx and Interaction Alerts*Lisinopril-hydroCHLOROthiazide , Notes to Pharmacist: *Pick strength-form from Medispan for eRX*Gregory-Mag , Notes to Pharmacist: *Pick strength-form from Medispan for eRX*Lipitor , Notes to Pharmacist: *Pick strength-form from Medispan for eRX*Protonix , Notes to Pharmacist: *Pick strength-form from Medispan for eRX*Taking Adults Multivitamin , Notes to Pharmacist: *Reorder from Medispan for eRx and Interaction Alerts*Taking Adult Low Dose Aspirin , Notes to Pharmacist: *Reorder from Medispan for eRx and Interaction Alerts*Taking Lisinopril-hydroCHLOROthiazide , Notes to Pharmacist: *Pick strength-form from Medispan for eRX*Taking Gregory-Mag , Notes to Pharmacist: *Pick strength-form from Medispan for eRX*Taking Lipitor , Notes to Pharmacist: *Pick strength-form from Medispan for eRX*Taking Protonix , Notes to Pharmacist: *Pick strength-form from Medispan for eRX* * * Date:
--- OUTSIDE RECORDS SUMMARY | 2025-05-03 09:49 | XMS_ITS | Continuity of Care Document ---
Author Organization [facility], [facility] ([facility]) Address [address] [place] [address] Care Team Providers Care Telegraph Service Clerk Name Role Phone TAMMY CUMMINGS Primary Care Provider Unavailabl e Assessment No assessment recorded. Plan of Treatment Reminders Order Date Submit Date Provider Last Modified By Organization Details Last Modified Time Details Appointments RECHECK 15 2025 01:00P Yissel Cummings MD Not available Not available Not available Lab None recorded. Referral None recorded. Procedures None recorded. Surgeries None recorded. Imaging None recorded. Medication Orders tramadol 50 mg tablet 2024 025 [facility]Ph[facility] #[id number], [address] [address], [address], 03/31/2025 17:32:34 esomepraz ole magnesium 40 mg capsule,d elayed release 2024 025 [facility]/Pharmacy #[id number], [address], [facility] [address], [place], [address], 03/31/2025 17:32:28 Patient TargetsNo targets recorded. Patient InstructionsNo instructions recorded. Reason for Referral None Reported. Problems Name Problem SNOMED Code Status Onset Date Resolution Date Notes Provider Name and Address Organization Details Recorded Time Benign essential hypertensi on 5063016 Active 2021 Hyperte nsion; 022 2:30PM by Luis Alberto Ayala, Office Visit; Promote d; acuity set as *; LUIS ALBERTO louie, [place] [facility] 5 17:25:28 Sleep apnea 21937254 Active 2021 Sleep Apnea; has CPAP; 022 2:30PM by Luis Alberto Ayala, Office Visit; Promote d; acuity set as *; LUIS ALBERTO louie [facility] 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 17:25:28 Low back pain 577162881 Active 2023 LUIS ALBERTO louie [facility] 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 17:25:28 Cervical spondylosi s 989998019 Active 2024 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 5 17:25:28 Pain of left shoulder joint 4356361639721 9109 Active 2024 Tammy Cummings MD [address] [place], [address], [facility] 5 11:28:45 Benign prostatic hyperplasi a 994686429 Active 2024 Tammy Cummings MD [address] [place], [address], [facility] 11:44:22 Acute gastritis 83158277 Active 2024 Tammy Cummings MD [address] [place] [address], [address], [facility], [place] 17:21:33 Generalize d osteoarthr itis 915615594 Active 2024 Tammy Cummings MD [address] [place] [address], [address], [facility], [place] 17:25:24 Problem Notes None recorded. Procedures Surgical History Date Name Laterality Status Provider Name and Address Organization Details Recorded Time 12/31/19 25 Joint Inj Beta-shoulder, hip, knee completed Tammy Cummings MD [address] [place] [address], [phone], [facility], [place] 12/30/2024 11:41:03 arthroplasty of left shoulder completed JOSELIN [facility], [place] 06/20/2023 15:05:19 replacement of bilateral knee joints completed [facility], [place] 06/20/2023 15:05:30 repair of joint of right hip completed [facility], [place] 06/20/2023 15:05:43 Imaging Results None recorded. Procedure Notes None recorded. Medical Equipment None Reported. Allergies No known drug allergies Medications Name Sig Start Date Stop Date Status Note LastModified by Organization Details LastModified Time celecoxib 200 mg capsule TAKE 1 CAPSULE BY MOUTH EVERY DAY 05/06 completed Not Available Not Available Not Available atorvasta tin 40 mg tablet daily 05/06 completed Not Available Not Available Not Available methocarb radha 500 mg tablet TAKE 1 TABLET BY MOUTH TWO TO FOUR TIMES A DAY NEEDED FOR 30 DAYS 04/19 completed Not Available Not Available Not Available prednison e 10 mg tablet PLEASE SEE ATTACHED FOR DETAILED DIRECTIO NS 06/18 completed Not Available Not Available Not Available doxycycli ne hyclate 100 mg capsule Take 1 capsule twice a day by oral route. 08/22 completed Not Available Not Available Not Available cetirizin e 10 mg tablet TAKE 1 TABLET BY MOUTH EVERY DAY FOR ALLERGY SYMPTOMS FOR 7 DAYS active Not Available Not Available No t Available lisinopri l 20 mg-hydroc hlorothia zide 12.5 mg tablet TAKE 1 TABLET BY MOUTH EVERY DAY active Not Available Not Available No t Available azithromy edmund 250 mg tablet TAKE 2 TABLETS BY MOUTH TODAY, THEN TAKE 1 TABLET DAILY FOR 4 DAYS DIRECTED 05/06 completed Not Available Not Available Not Available tizanidin e 4 mg tablet active Not Available Not Available Not Available benzonata te 200 mg capsule TAKE 1 CAPSULE BY MOUTH THREE TIMES A DAY NEEDED 05/06 completed Not Available Not Available Not Available ciproflox acin 500 mg tablet TAKE 1 TABLET BY MOUTH EVERY 12 HOURS FOR 3 DAYS 09/02 completed Not Available Not Available Not Available sulfameth oxazole 800 mg-trimet hoprim 160 mg tablet TAKE 1 TABLET BY MOUTH TWICE A DAY FOR 5 DAYS 03/31 completed Not Available Not Available Not Available tramadol 50 mg tablet TAKE 1 TABLET BY MOUTH FOUR TIMES A DAY NEEDED active Not Available Not Available No t Available Nexium 20 mg capsule,d elayed release Take 1 capsule every day by oral route. active Not Available Not Available No t Available betametha sone acetate and sodium phos 6 mg/mL suspensio n for injection Take 6 mg by injectio n route. 03/05 completed Not Available Not Available Not Available famotidin e 20 mg tablet TAKE 1 TABLET BY MOUTH TWICE A DAY 03/31 completed Not Available Not Available Not Available hydrocodo ne 7.5 mg-acetam inophen 325 mg tablet TAKE 1 TABLET BY MOUTH EVERY 4 HOURS NEEDED FOR MODERATE PAIN. MAX DAILY AMOUNT: 6 TABLETS 05/06 completed Not Available Not Available Not Available pantopraz ole 40 mg tablet,de layed release TAKE 1 TABLET BY MOUTH TWICE A DAY 03/31 completed Not Available Not Available Not Available esomepraz ole magnesium 40 mg capsule,d elayed release TAKE 1 CAPSULE BY MOUTH EVERY DAY active Not Available Not Available No t Available triamcino lone acetonide 0.1 % topical ointment APPLY TWICE DAILY TO AREAS OF ITCHY RASH active Not Available Not Available No t Available docusate sodium 100 mg capsule TAKE 1 CAPSULE BY MOUTH TWICE A DAY FOR 30 DAYS 12/30 completed Not Available Not Available Not Available diclofena c sodium 75 mg tablet,de layed release TAKE 1 TABLET BY MOUTH TWICE A DAY 03/31 completed Not Available Not Available Not Available cefdinir 300 mg capsule TAKE 1 CAPSULE BY MOUTH TWICE DAILY 06/20 completed Not Available Not Available Not Available doxycycli ne hyclate 100 mg tablet TAKE 1 TABLET BY MOUTH TWICE A DAY 04/19 completed Not Available Not Available Not Available naproxen 500 mg tablet Take 1 tablet as needed by oral route. 04/19 completed Not Available Not Available Not Available amoxicill in 875 mg-potass ium clavulana te 125 mg tablet TAKE 1 TABLET BY MOUTH TWICE DAILY FOR 7 DAYS 03/31 completed Not Available Not Available Not Available oxycodone 5 mg tablet TAKE 1 TABLET BY MOUTH EVERY 8 HOURS NEEDED FOR PAIN FOR 7 DAYS 03/31 completed Not Available Not Available Not Available magnesium active 500mg. daily Not Available Not Available Not Available aspirin daily 06/20 completed 0; Recorded 07/29/19 8:48AM by Joselin pride, Office Visit; Not Available Not Available Not Available lisinopri l-hydroch lorothiaz adeel QD 06/20 completed 17114; Recorded 06/02/20 22 7:05AM by Lizet Pagan (Authori zed through Boni Faye MD), Refill Request; Refill Quantity : 90; Tablet; Not Available Not Available Not Available zinc active Not Available Not Availa ble Not Available ferrous sulfate daily 06/20 completed Recorded 07/29/19 23 9:27AM by Tammy Cummings MD, Office Visit; Refill Quantity : 90; Tablet; Not Available Not Available Not Available diclofena c sodium four times daily, as needed 06/20 completed Recorded 12/30/19 22 1:46PM by Luis Alberto Ayala, Office Visit; Refill Quantity : 100; Gram; Not Available Not Available Not Available naproxen two times daily 06/20 completed Recorded 03/04/20 3:15PM by Tammy Cummings MD, Office Visit; Refill Quantity : 180; Tablet; Not Available Not Available Not Available Tylenol Arthritis 10/31 completed 2 BID; 0; Recorded 07/29/19 8:48AM by Joselin pride, Office Visit; Not Available Not Available Not Available Senexon-S 8.6 mg-50 mg tablet TAKE 1 TABLET BY MOUTH 2 TIMES DAILY. TAKE ONLY WHEN TAKING NARCOTIC S 12/30 completed Not Available Not Available Not Available aspirin 81 mg capsule Take 1 capsule every day by oral route. active Not Available Not Available No t Available Vitals Date Recorded Body height Body mass index (BMI) Body weight Heart rate Systolic And Diastolic Provider Name and Address Organization Details Last Updated DateTime 03/31/2025 165.1 cm 34.4 kg/m2 75863.62 g 70 /min 132/80 mm[Hg] JOSELIN BOSTON [facility] 16:54:03 Social History Question Answer Notes LastModified by Organizat ion Details LastModified Time Tobacco Smoking Status Never Smoker JOSELIN BOSTON [facility] 06/20/2023 15:11:08 What Was The Date Of Your Most Recent Tobacco Screening? 12/30/2024 Information not available 12/30/2024 Sex: Unknown Functional Status Question Answer Note LastModified by Organization D etails LastModified Time What is your level of alcohol consumption? None Information not available 06/20/2023 Mental Status None recorded. Family History Nothing Reported Notes:CAD, Cancer Mother: Hy pertension Medical History No medical history recorded. Immunizations Vaccine Type Date Status Note Provider Nam e and Address Organization Details Recorded Time Influenza, split virus, trivalent, preservative 1 completed Not Available [facility] 01/07/2023 02:51:46 Influenza, split virus, trivalent, preservative 8 completed Not Available [facility] 01/07/2023 02:51:46 Influenza, split virus, trivalent, preservative 2 completed Not Available [facility] 01/07/2023 02:51:46 pneumococcal polysaccharide PPV23 2 completed Not Available [facility] 01/07/2023 02:51:47 Influenza, split virus, quadrivalent, preservative 4 completed LUIS ALBERTO AYALA null, [facility] 11/01/2023 11:32:50 Influenza, adjuvanted, trivalent, PF 9 completed LUIS ALBERTO AYALA null, [facility] 11/01/2023 11:32:50 Influenza, high-dose, quadrivalent, PF 3 completed LUIS ALBERTO P[place] null, [facility] 11/01/2023 11:32:50 Influenza, high-dose, quadrivalent, PF 2 completed [facility]/01/2023 11:32:50 Influenza, high-dose, quadrivalent, PF 1 completed [facility] 11/01/2023 11:32:50 COVID-19, mRNA, LNP-S, PF, 30 mcg/0.3 mL dose 1 completed [facility]ERT[facility] 11/01/2023 11:32:50 COVID-19, mRNA, LNP-S, PF, 30 mcg/0.3 mL dose 1 completed [facility]ERT[facility] 11/01/2023 11:32:50 COVID-19, mRNA, LNP-S, PF, 30 mcg/0.3 mL dose 2 completed [facility]ERT[facility] 11/01/2023 11:32:50 COVID-19, mRNA, LNP-S, PF, 30 mcg/0.3 mL dose 1 completed LUIS ALBERTO louie, [facility] 11/01/2023 11:32:50 COVID-19, mRNA, LNP-S, PF, 50 mcg/0.5 mL 3 completed LUIS ALBERTO louie, [facility] 11/01/2023 11:32:50 Pneumococcal conjugate PCV 13 0 completed LUIS ALBERTO AYALA [facility], [facility] 11/01/2023 11:32:50 Influenza, high-dose, trivalent, PF 6 completed LUIS ALBERTO AYALA null, [facility] 11/01/2023 11:32:50 Influenza, split virus, trivalent, preservative 4 completed [facility] AYALA [facility] 11/01/2023 11:32:50 Influenza, split virus, quadrivalent, PF 0 completed LUIS ALBERTO louie, [facility] 11/01/2023 11:32:50 Pneumococcal conjugate PCV20, polysaccharide [id number] conjugate, adjuvant, PF 4 completed Not Available [facility] 03/31/2025 15:55:33 Influenza, high-dose, trivalent, PF 4 completed Not Available [facility] 03/31/2025 15:55:33 COVID-19, mRNA, LNP-S, PF, 50 mcg/0.5 mL 4 completed Not Available [facility] 03/31/2025 15:55:33 COVID-19, mRNA, LNP-S, PF, 50 mcg/0.5 mL 5 completed Not Available [facility] 03/31/2025 15:55:33 Past Encounters Encounter ID Performer Location Encounter Start Date Encounter Closed Date Diagnosis/Indication Diagnosis SNOMED-CT Code Diagnosis ICD10 Code Diagnosis IMO Codes Diagnosis Note [id number] ALLISON CARUSO [facility] ([facility]) [address] [place] [address] 03/05/2025 16:17:42 03/05/2025 17:27:50 Wound pain 549457354 L76.82 8567792 History of appendectomy 764915252 Z90.49 [id number] [id number] Tammy Cummings MD [facility] ([facility]) [address] [place] [address] 03/31/2025 15:54:10 03/31/2025 17:36:39 Acute gastritis 20393410 K29.00 [id number] Generalize d osteoarthritis 306585423 M15.9 1453 Health Concerns Section Related Observation LastModified by Organization Detai ls LastModified Time None Recorded Concern Status LastModified by Organization Details LastModified Time None Recorded Payers Encounter Date Sequence Insurance Name Policy Number Policy Estrada Covered Member ID Estrada Member ID Guarantor Name 03/31/2025 1 [place] Magen Juarez [id number] Magen Juarez 03/31/2025 2 [place]ia - PLAN F (MEDICARE SUPPLEMENT) [id number] Magen Juarez [id number] Magen Juarez Notes Date Note Type Note Provider Name and Address Organization Details Recorded Time 03/31/2025 text/html Reflux/GERDRepor anabel by PatientHPIFor quality, patient reportsburning. For severity, patient reportsno change. For alleviating factors, patient reportsmedication. For associated symptoms, patient reportsno frequent coughing,no globus sensation,no hoarseness,no belching/burping,no nausea, andno vomiting. Tammy Cummings MD [address] [place] [address], [phone], [facility] 03/31/2025 17:32:29
--- OUTSIDE RECORDS SUMMARY | 2025-05-03 09:49 | XMS_ITS | Clinical Summary ---
Author Organization [facility] Address [address] 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 Gender Identity Not on file Sexual Orientation [...] 2025 05/27/2019 Medical Devices Implanted Type Area Physical Therapy Aides Teacher Device Identifier Shelf Expiration Date Model / Serial / Lot Log 4915 - Cement - 1 - Cement Palacos Sgl [id number] Implanted:Qty: 1 on 08/19/2008 at [facility] Cement Right: Knee [employer] 00-1112-14 0-01 / NA / [id number] Log 4915 - Betty Total Knee - 1 - Baseplate Tib Sz 3 [id number] Implanted:Qty: 1 on 08/19/2008 at [facility] Knee Right: Knee [employer] 6306-07-04 0 / NA / [id number] Log 4915 - Betty Total Knee - 1 - Comp Fem Flex Gsm Sz 4-Rt Nkii [id number] Implanted:Qty: 1 on 08/19/2008 at [facility] Right: Knee [employer] 7- / NA / [id number] Log 4915 - Betty Total Knee - 1 - Patella Prolng Flex Sz 1 8mm Nkii [id number] Implanted:Qty: 1 on 08/19/2008 at [facility] Right: Knee [employer] 8- / NA / [id number] Log 4915 - Betty Total Knee - 1 - Ins Prolng Flx Sz 3//5-Rt 9mm Jose Guadalupe Nkii [id number] Implanted:Qty: 1 on 08/19/2008 at [facility] Right: Knee [employer] 3 / NA / [id number] Insurance MEDICARE PART A AND B [facility] SUPP Advance Directives For more information, please contact: [phone] * Full Code (Latest Code Status on [...] 5:28 AM 08/19/2008 6:54 AM Care Teams Oncology Social Worker Relationship Specialty Start Date End Date Murali Cummings MD [address] [place] [address] PCP - General Family Practice 04/04/14
--- OUTSIDE RECORDS SUMMARY | 2025-05-03 09:49 | XMS_ITS | Encounter Summary ---
Author Organization [facility] Address [address] [place] [address] Care Team Providers Care Dewaterer Operator Name Role Phone Murali Cummings MD Primary Care Provider [phone] Reason for Referral * Radiology Services (Routine) - Closed Specialty Diagnoses / Procedures Referred By Contac t Referred To Contact Diagnoses Other chronic pain Procedures XR FLUORO NEEDLE GUIDANCE SPINE Fredrick Talbot MD Phone: tel: fax: Referral ID Status Reason Start Date Expiration Date Visits Re quested Visits Authorized [id number] Closed 04/01/2019 05/01/2020 1 1 Encounter Details Date Type Department Care Team (Late st Contact Info) Description 04/01/2019 Ancillary Orders [facility] Pain Management Procedures [place] [address] [place] [address] [place] [address] [facility] [address] [place] [address] Other chronic pain Social History Tobacco Use Types Packs/Day Years Used Date Smoking Tobacco: Former Cigarettes 2 0 06/12/2002 - 06/12/2004 Smokeless Tobacco: Never Comments:2-3 cigs per day Alcohol Use Standard Drinks/Week Comments No 0 (1 standard drink = 0.6 oz pur e alcohol) Sex and Gender Information Value Date Recorded Sex Assigned at Not on file 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
--- OUTSIDE RECORDS SUMMARY | 2025-05-03 09:49 | XMS_ITS | Encounter Summary ---
Author Organization [facility] Address [address] [place] [address] Care Team Providers Care Chairman & Chief Executive Officer Name Role Phone Murali Cummings MD Primary Care Provider [phone] Reason for Referral * Outpatient Services (Routine) - Closed Specialty Diagnoses / Procedures Referred By Contac t Referred To Contact Diagnoses Lumbosacral spondylosis without myelopathy Procedures XR FLUORO NEEDLE GUIDANCE SPINE Fredrick Talbot MD Phone: tel: fax: Referral ID Status Reason Start Date Expiration Date Visits Re quested Visits Authorized [id number] Closed 11/20/2017 12/21/2018 1 1 Encounter Details Date Type Department Care Team (Late st Contact Info) Description 11/20/2017 Ancillary Orders [facility] Pain Management Procedures [place] [address] [place] [address] [place] [address] [facility] [address] [place] [address] Lumbosacral spondylosis without myelopathy Social History Tobacco Use Types Packs/Day Years Used Date Smoking Tobacco: Former Cigarettes 2 0 06/12/2002 - 06/12/2004 Smokeless Tobacco: Never Comments:2-3 cigs per day Alcohol Use Standard Drinks/Week Comments No 0 (1 standard drink = 0.6 oz pur e alcohol) Sex and Gender Information Value Date Recorded Sex Assigned at Not on file 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
--- OUTSIDE RECORDS SUMMARY | 2025-05-03 09:50 | XMS_ITS | Encounter Summary ---
Author Organization [facility] Address [address] [place] [address] Care Team Providers Care Crusher Tender Name Role Phone Murali Cummings MD Primary Care Provider Reason for Visit * Reason Onset Date Comments Back Pain 04/29/2025 Encounter Details Date Type Department Care Team (Late st Contact Info) Description 04/29/2025 Telephone [facility] Pain Management [address] [place] [address] Balbina Reyna PA [address] [place] [address] Back Pain Social History Tobacco Use Types Packs/Day Years [...] PM CDT Legal Sex Male 6:34 AM CHIEF EXECUTIVE OR MANAGING DIRECTOR Gender Identity Male 02/07/2023 8:07 PM CDT Sexual Orientation Straight 02/07/2023 8: 07 PM CDT documented as of this encounter Miscellaneous Notes * Telephone Encounter - Balbina Reyna PA - 04/29/2025 1:09 PM CST Pt requesting repeat RFA. Previous RFA was 10/04/23 and provided 95% relief for 9 months. Patient having return of AXIAL back pain. Will plan for repeat RFA. F EXECUTIVE OR MANAGING DIRECTOR documented in this encounter Plan of Treatment Upcoming Encounters Date Type Department Care Team (Late st Contact Info) Description 05/28/2025 2:40 PM CHIEF EXECUTIVE OR MANAGING DIRECTOR Appointment [facility] Pain Management Procedures [place] [address] [place] [address] Yaw Vidal MD [address] [facility] [address] [place] [phone] documented as of this encounter Visit Diagnoses Not on filedocumented in this encounter Care Teams Crusher Tender Relationship Specialty Start Date End Date Murali Cummings MD [address] [facility] [address] [place], [place] [address] PCP - General Family Practice 04/04/14 documented as of this encounter
--- OUTSIDE RECORDS SUMMARY | 2025-05-03 09:50 | XMS_ITS | Data Portability ---
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 [email or web address] Not available 03/06/2025 09:15:01 Plan of Treatment Reminders Order Date Submit Date Provider Last Modified By Organization Details Last Modified Time Details Appointments RECHEC K 15 2025 01:00P Yissel Cummings MD Not available Not available Not available Lab CMP, serum or plasma 2024 025 [facility], [address], [place], [address], 12/30/2024 13:04:10 lipid panel, blood 2024 025 [facility], [address], [address], [place], [address], 12/30/2024 13:04:13 CBC 2024 025 [facility], [address], [address], [place], [address], 12/30/2024 12:21:07 ferrit in, serum or plasma 2024 025 [facility], [address], [address], [place], [address], 12/31/2024 10:24:04 PSA, serum or plasma 2024 025 [place] [employer] [facility], [address], [place], [address], 12/31/2024 10:24:06 Referral None record ed. Procedures arthro centes is, aspira tion and/or inject ion, major joint or bursa (PROC) 2024 025 [email or web address] Not available 12/30/2024 13:27:40 Surgeries None record ed. Imaging None record ed. Medication Orders tramad ol 50 mg tablet [address] [facility] #[id number], [address], [place], [address], 03/31/2025 17:32:34 esomep razole magnes ium 40 mg capsul e,jovita yed releas e [address] [facility]/Pharmacy #[id number], [address], [address], [place], [address], 03/31/2025 17:32:28 betame thason e acetat e and sodium phos 6 mg/mL suspen meño for inject ion 2024 025 [email or web address] Not available 03/05/2025 16:47:03 tramad ol 50 mg tablet [address] [facility]/Pharmacy #[id number], [address], [address], [place], [address], 12/30/2024 10:56:39 Augmen tin 875 mg-125 mg tablet 2024 025 [email or web address]/Pharmacy #[id number], [address], [address], [place], [address], 03/31/2025 16:56:26 Patient TargetsNo targets recorded. Patient InstructionsNo instructions recorded. Reason for Referral None Reported. Results Created Date Observation Date Name Description Value Unit Range Abnormal Flag Note LastModifiedBy Organization Detail LastModifiedTime 12/31/1912/30/2024 CBC WBC 7.7 x10 4.5-10 .5 Not Available [facility] [address], [place], [address], 12/30/2024 12:21:07 12/31/19 25 12/30/2024 CBC RBC 5.10 x10 4.30-5 .90 Not Available [facility] [address], [place], [address], 12/30/2024 12:21:07 12/31/19 25 12/30/2024 CBC HGB 14.1 g/dL 13.5-1 8.0 Not Available [facility] [address] [facility] [address], [place], [address], 12/30/2024 12:21:07 12/31/19 25 12/30/2024 CBC HCT 45.0 % 35.0-6 0.0 Not Available [facility] [address] [facility] [address], [place], [address], 12/30/2024 12:21:07 12/31/19 25 12/30/2024 CBC MCV 88.3 fL 80.0-9 9.9 Not Available [facility] [address], [place], [address], 12/30/2024 12:21:07 12/31/19 25 12/30/2024 CBC MCH 27.6 pg 27.0-3 2.0 Not Available [facility] [address] [facility] [address], [place], [address], 12/30/2024 12:21:07 12/31/19 25 12/30/2024 CBC MCHC 31.2 g/dL 32.0-3 6.0 low Not Available [facility] [address] [facility] [address], [place], [address], 12/30/2024 12:21:07 12/31/19 25 12/30/2024 CBC RDW 16.3 % 11.5-1 4.5 high Not Available [facility] [address] [facility] [address], [place], [address], 12/30/2024 12:21:07 12/31/19 25 12/30/2024 CBC plt 199.4 x10 150.0- 451.0 Not Available [facility] [address] [facility] [address], [place], [address], 12/30/2024 12:21:07 12/31/19 25 12/30/2024 CBC lymphocytes % 27.8 % 20.0-5 0.0 Not Available [facility] [address] [facility] [address], [place], [address], 12/30/2024 12:21:07 12/31/19 25 12/30/2024 CBC granulcytes % 54.0 % 30.0-7 0.0 Not Available [facility] [address] [facility] [address], [place], [address], 12/30/2024 12:21:07 12/31/19 25 12/30/2024 CBC monocytes % 10.2 % 2.0-16 .0 Not Available [facility] [address] [facility] [address], [place], [address], 12/30/2024 12:21:07 12/31/19 25 12/30/2024 CBC granulcytes# 4.2 x10 Not Alda ilable [facility] [address] [facility] [address], [place], [address], 12/30/2024 12:21:07 12/31/19 25 12/30/2024 CBC lymphocytes # 2.1 x10 Not Available [facility] [address] [facility] [address], [place], [address], 12/30/2024 12:21:07 12/31/19 25 12/30/2024 CBC monocytes # 0.8 x10 Not Avai lable [facility] [address] [facility] [address], [place], [address], 12/30/2024 12:21:07 12/31/19 25 12/30/2024 CMP (MALE ) glucose 103.0 mg/dL 60.0-9 9.0 high Not Available [facility] [address] [facility] [address], [place], [address], 12/30/2024 13:04:10 12/31/19 25 12/30/2024 CMP (MALE ) BUN (blood urea nitrogen) 24.0 mg/dL 10.0-2 6.0 Not Available [facility] [address] [facility] [address], [place], [address], 12/30/2024 13:04:10 12/31/19 25 12/30/2024 CMP (MALE ) creatinine (serum) 1.0 mg/dL 0.4-1. 5 Not Available [facility] [address] [address], [place], [address], 12/30/2024 13:04:10 12/31/19 25 12/30/2024 CMP (MALE ) BUN/creatini ne ratio 24.00 ratio Not Available [facility] [address] [facility] [address], [place], [address], 12/30/2024 13:04:10 12/31/19 25 12/30/2024 CMP (MALE ) eGFR calculated 76.8 Not Available [facility] [address] [facility] [address], [place], [address], 12/30/2024 13:04:10 12/31/19 25 12/30/2024 CMP (MALE ) total protein 7.2 g/dL 6.0-8. 5 Not Available [facility] [address] [facility] [address] [facility] [address], [place], [address], 12/30/2024 13:04:10 12/31/19 25 12/30/2024 CMP (MALE ) total bilirubin 0.5 mg/dL 0.2-1. 3 Not Available [facility] [address] [facility] [address], [place], [address], 12/30/2024 13:04:10 12/31/19 25 12/30/2024 CMP (MALE ) albumin 4.4 g/dL 3.5-5. 5 Not Available [facility] [address] [facility] [address], [place], [address], 12/30/2024 13:04:10 12/31/19 25 12/30/2024 CMP (MALE ) globulin 2.8 calc Not Available [facility] [address] [facility] [address] [facility], [place], [address], 12/30/2024 13:04:10 12/31/19 25 12/30/2024 CMP (MALE ) AST (SGOT) 47.0 U/L 0.0-46 .0 high Not Available [facility] [address] [facility] [address], [place], [address], 12/30/2024 13:04:10 12/31/19 25 12/30/2024 CMP (MALE ) altv (SGPT) 44.0 U/L 13.0-6 9.0 normal Not Available [facility] [address] [facility] [address] [facility], [place], [address], 12/30/2024 13:04:10 12/31/19 25 12/30/2024 CMP (MALE ) A/G ratio 1.6 ratio Not Available [facility] [address] [facility] [address], [place], [address], 12/30/2024 13:04:10 12/31/19 25 12/30/2024 CMP (MALE ) ALP phos 89.0 U/L 30.0-1 40.0 normal Not Available [facility] [address] [facility] [address], [place], [address], 12/30/2024 13:04:10 12/31/19 25 12/30/2024 CMP (MALE ) calcium 9.3 mg/dL 8.4-10 .5 Not Available [facility] [address] [facility] [address], [place], [address], 12/30/2024 13:04:10 12/31/19 25 12/30/2024 CMP (MALE ) sodium 143.0 mmol/ L 136.0- 145.0 Not Available [facility] [address] [facility] [address], [place], [address], 12/30/2024 13:04:10 12/31/19 25 12/30/2024 CMP (MALE ) potassium 4.4 mmol/ L 3.5-5. 1 Not Available [facility] [address] [facility] [address], [place], [address], 12/30/2024 13:04:10 12/31/19 25 12/30/2024 CMP (MALE ) chloride 107.0 mmol/ L 98.0-1 10.0 normal Not Available [facility] [address] [facility] [address], [place], [address], 12/30/2024 13:04:10 12/31/19 25 12/30/2024 CMP (MALE ) C02 28.0 mmol/ L 22.0-3 1.0 Not Available [facility] [address], [place], [address], 12/30/2024 13:04:10 12/31/19 25 12/30/2024 CMP (MALE ) anion gap 8.0 calc Not Available [facility] [address], [place], [address], 12/30/2024 13:04:10 12/31/19 25 12/30/2024 CMP (MALE ) osmolality 299.2 calc Not Available [facility] [address], [place], [address], 12/30/2024 13:04:10 12/31/19 25 12/30/2024 LIPID PROFI LE (MALE ) cholesterol 119.0 mg/dL 0.0-20 0.0 Not Available [facility] [address] [facility] [facility] [address], [place], [address], 12/30/2024 13:04:13 12/31/19 25 12/30/2024 LIPID PROFI LE (MALE ) trig 105.0 mg/dL 0.0-15 0.0 Not Available [facility] [address] [facility] [facility] [address], [place], [address], 12/30/2024 13:04:13 12/31/19 25 12/30/2024 LIPID PROFI LE (MALE ) HDL - direct 51.0 mg/dL >40.0 Not Available [facility] [address] [facility] [facility] [address], [place], [address], 12/30/2024 13:04:13 12/31/19 25 12/30/2024 LIPID PROFI LE (MALE ) VLDL - direct 21.0 mg/dL Not Available [facility] [address] [facility] [address], [place], [address], 12/30/2024 13:04:13 12/31/19 25 12/30/2024 LIPID PROFI STARR (MALE ) LDL - direct 47.0 mg/dL 0.0-13 0.0 Not Available [facility] [address] [facility] [address], [place], [address], 12/30/2024 13:04:13 12/31/19 25 12/31/2024 CLARIBEL TIN ferritin 21 NG/mL 24-380 low Not Available [facility] [address] [place], [address], 12/31/2024 10:24:04 12/31/19 25 12/31/2024 PSA, TOTAL PSA, total 2.11 NG/mL < or = 4.00 normal The total PSA value from this assay syste m is stand ardiz ed again st the WHO stand chhaya. The test resul t will be appro ximat rayshawn 20% lower when rolando red to the equim olar- stand ardiz ed total PSA (Sandhu man Coult er). Rolando rison of seria l PSA resul ts shoul d be inter prete d with this fact in mind. This test was perfo rmed using the Sieme ns chemi lumin escen t metho d. Value s obtai kieran from diffe rent assay metho ds canno t be used inter travis eably . PSA level s, regar dless of value , shoul d not be inter prete d as absol mashpee evide nce of the prese nce or absen ce of disea se. Not Available [facility] [address] [place], [address], 12/31/2024 10:24:05 06/10/20 24 06/10/2024 MRI, neck, w/o contr ast No observ ation record ed. [email or web address] [place] [address] [address] [place], [address], 06/11/2024 13:10:29 09/03/19 25 08/15/2024 CT, cervi shen spine , w/o contr ast No observ ation record ed. [email or web address] Not Available 09/03 09:13:36 09/03/19 25 08/07/2024 XR, cervi shen spine , 6 or more view No observ ation record ed. Not Available 09/03 09:14:39 09/03/19 25 08/15/2024 MRI, orbit s, w/wo contr ast No observ ation record ed. [email or web address] Not Available 09/03 09:15:22 Result Notes None recorded. Problems Name Problem SNOMED Code Status Onset Date Resolution Date Notes Provider Name and Address Organization Details Recorded Time Benign essential hypertensi on 7450034 Active 2021 Hyperte nsion; 2:30PM by Luis Alberto Atkins, Office Visit; Promote d; acuity set as *; LUIS ALBERTO louie [facility] 17:25:28 Sleep apnea 30738686 Active 2021 Sleep Apnea; has CPAP; 022 2:30PM by uLis Alberto Atkins, Office Visit; Promote d; acuity set as *; LUIS ALBERTO louie [facility] 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 5 17:25:28 Low back pain 704938493 Active 2023 LUIS ALBERTO louie [facility] 5 17:25:28 Cerebrovas cular accident 232021005 Active 2023 LUIS ALBERTO louie [facility] 5 17:25:28 Renal mass 615376412 Active 2023 LUIS ALBERTO louie [facility] 5 17:25:28 Cervical spondylosi s 665332166 Active 2024 LUIS ALBERTO ATKINSCHESTER louie [facility] 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 17:25:28 Pain of left shoulder joint 7400655198830 9109 Active 2024 Tammy Cummings MD [address] [place] [address], [phone], [facility] 11:28:45 Benign prostatic hyperplasi a 097315393 Active 2024 Tammy Cummings MD [address] [place] [address], [phone], [facility] 11:44:22 Acute gastritis 71160652 Active 2024 Tammy Cummings MD [address] [place] [address], [phone], [facility] 17:21:33 Generalize d osteoarthr itis 791657930 Active 2024 Tammy Cummings MD [address] [place] [address], [phone], [facility] 17:25:24 Problem Notes None recorded. Procedures Surgical History Date Name Laterality Status Provider Name and Address Organization Details Recorded Time 12/31/19 25 Joint Inj Beta-shoulder, hip, knee completed Tammy Cummings MD [address] [place] [address], [phone], [facility] 12/30/2024 11:41:03 arthroplasty of left shoulder completed JOSELIN BOSTON [facility], JessicaLMansoorCM[facility]oor 06/20/2023 15:05:19 replacement of bilateral knee joints completed JOSELIN BOSTON [facility], LTaina 06/20/2023 15:05:30 repair of joint of right hip completed JOSELIN BOSTON [facility], [place] 06/20/2023 15:05:43 Imaging Results None [...] aspirin daily 06/20 completed 0; Recorded 07/29/19 23 8:48AM by Joselin pride, Office Visit; Not Available Not Available Not Available lisinopri l-hydroch lorothiaz adeel QD 06/20 completed 49986; Recorded 06/02/20 7:05AM by Lizet Pagan (Vickie ross through Boni Faye MD), Refill Request; Refill Quantity : 90; Tablet; Not Available Not Available Not Available zinc active Not Available Not Availa ble Not Available ferrous sulfate daily 06/20 completed Recorded 07/29/19 9:27AM by Tammy Cummings MD, Office Visit; Refill Quantity : 90; Tablet; Not Available Not Available Not Available diclofena c sodium four times daily, as needed 06/20 completed Recorded 12/30/19 1:46PM by Luis Alberto Atkins, Office Visit; Refill Quantity : 100; Gram; [...] height Body mass index (BMI) Body weight Oxygen saturation Heart rate Body temperature Systolic And Diastolic Provider Name and Address Organization Details Last Updated DateTime 5 165.1 cm 36.6 kg/m2 65299.3 2 g 98 % 59 /min 98.6 [degF] 130/80 mm[Hg] Adrienne Xavierleigh [facility] 5 13:35:34 Date Recorded Body height Body mass index (BMI) Body weight Oxygen saturation Heart rate Systolic And Diastolic Provider Name and Address Organization Details Last Updated DateTime 5 165.1 cm 35.8 kg/m2 88823.3 6 g 98 % 68 /min 140/80 mm[Hg] LUIS ALBERTO ATKINS [facility] 5 11:59:21 Date Recorded Body height Body mass index (BMI) Body weight Heart rate Systolic And Diastolic Provider Name and Address Organization Details Last Updated DateTime 12/30/2024 165.1 cm 35.6 kg/m2 54807.77 g 70 /min 118/64 mm[Hg] JOSELIN BOSTON [facility] 5 10:52:04 Date Recorded Body height Body mass index (BMI) Body weight Oxygen saturation Heart rate Respiratory rate Body temperature Systolic And Diastolic Provider Name and Address Organization Details Last Updated DateTime 165.1 cm 35.8 kg/m2 22192.3 6 g 96 % 66 /min 20 /min 98.2 [degF] 128/68 mm[Hg] DAMASO ESTEPHANIA [facility] 5 16:42:13 Date Recorded Body height Body mass index (BMI) Body weight Heart rate Systolic And Diastolic Provider Name and Address Organization Details Last Updated DateTime 03/31/2025 165.1 cm 34.4 kg/m2 03590.62 g 70 /min 132/80 mm[Hg] JOSELIN BOSTON [facility] 5 16:54:03 Social History Question Answer Notes LastModified by Organizat ion Details LastModified Time Tobacco Smoking Status Never Smoker JOSELIN louie [facility] 06/20/2023 15:11:08 What Was The Date [...] virus, trivalent, preservative 1 completed Not Available [facility] 01/07/2023 02:51:46 Influenza, split virus, trivalent, preservative 8 completed Not Available [facility] 01/07/2023 02:51:46 Influenza, split virus, trivalent, preservative 2 completed Not Available [facility] 01/07/2023 02:51:46 pneumococcal polysaccharide PPV23 2 completed Not Available [facility] 01/07/2023 02:51:47 Influenza, split virus, quadrivalent, preservative 4 completed LUIS ALBERTO louie, [facility] 11/01/2023 11:32:50 Influenza, adjuvanted, trivalent, PF 9 completed LUIS ALBERTO louie, [facility] 11/01/2023 11:32:50 Influenza, high-dose, quadrivalent, PF 3 completed LUIS ALBERTO ATKINS null, [facility] 11/01/2023 11:32:50 Influenza, high-dose, quadrivalent, PF 2 completed LUIS ALBERTO PINTORIS null, [facility] 11/01/2023 11:32:50 Influenza, high-dose, quadrivalent, PF 1 completed LUIS ALBERTO ATKINS null, [facility] 11/01/2023 11:32:50 COVID-19, mRNA, LNP-S, PF, 30 mcg/0.3 mL dose 1 completed LUIS ALBERTO louie, [facility] 11/01/2023 11:32:50 COVID-19, mRNA, LNP-S, PF, 30 mcg/0.3 mL dose 1 completed LUIS ALBERTO louie [facility] 11/01/2023 11:32:50 COVID-19, mRNA, LNP-S, PF, 30 mcg/0.3 mL dose 2 completed LUIS ALBERTO MILLY [facility] 11/01/2023 11:32:50 COVID-19, mRNA, LNP-S, PF, 30 mcg/0.3 mL dose 1 completed LUIS ALBERTO MILLY [facility] 11/01/2023 11:32:50 COVID-19, mRNA, LNP-S, PF, 50 mcg/0.5 mL 3 completed LUIS ALBERTO ATKINS [facility] 11/01/2023 11:32:50 Pneumococcal conjugate PCV 13 0 completed [facility] 11/01/2023 11:32:50 Influenza, high-dose, trivalent, PF 6 completed [facility] 11/01/2023 11:32:50 Influenza, split virus, trivalent, preservative 4 completed [facility] 11/01/2023 11:32:50 Influenza, split virus, quadrivalent, PF 0 completed [facility] 11/01/2023 11:32:50 Pneumococcal conjugate PCV20, polysaccharide [id number] conjugate, adjuvant, PF 4 completed Not Available [facility] 03/31/2025 15:55:33 Influenza, high-dose, trivalent, PF 4 completed Not Available [facility] 03/31/2025 15:55:33 COVID-19, mRNA, LNP-S, PF, 50 mcg/0.5 mL 4 completed Not Available [facility] 03/31/2025 15:55:33 COVID-19, mRNA, LNP-S, PF, 50 mcg/0.5 mL 5 completed Not Available [facility] 03/31/2025 15:55:33 Past Encounters Encounter ID Performer Location Encounter Start Date Encounter Closed Date Diagnosis/Indication Diagnosis SNOMED-CT Code Diagnosis ICD10 Code Diagnosis IMO Codes Diagnosis Note [id number] Tammy Cummings MD [facility] [address] [place] [phone] 5 06/20/2023 14:42:51 06/20/2023 15:44:23 Benign essential hypertension 6327591 I10 BP a little up today but has been running well. Sleep apnea 88096509 G47 .30 Doing well with CPAP at this time. 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 Will continue to monitor. [id number] Tammy Cummings MD [facility] ([facility]) [address] [place] [phone] 5 08/23/2023 16:27:01 08/23/2023 18:08:34 Low back pain 812629318 M54.51 [id number] Tammy Cummings MD [facility] ([facility]) [address] [place] [phone] 5 11/01/2023 11:13:15 11/01/2023 12:11:05 Benign essential hypertension 9386841 I10 stable. Low back pain 719737915 M54.51 Sunburn of first degree 541610262 L55.0 improving by report. He is followed by a dermatolog ist(Dr. Krishnan) in [place]. [id number] ALLISON HOOD [facility] ([facility]) [address] [place] [phone] 5 04/19/2024 08:20:10 04/19/2024 13:21:13 Acute bacterial bronchitis 936143046 J20.9 Discussed use of otc medication s for symptom management .Push oral fluids and rest.If you develop fever, sob, or start feeling worse then return for re-evaluat ion. [id number] Tammy Cummings MD [facility] ([facility]) [address] [place] [address] [id number] 5 05/06/2024 13:27:33 05/06/2024 17:46:27 Benign essential hypertension 3871494 I10 stable. Cerebrovas cular accident 973019273 I63.9 right eye. MRI pending. Continue ASA 81mg daily. Renal mass 501421914 N28 .89 left renal mass noted in CT from [place]. He has an appt. to see a urologist in [facility] pretty soon. [id number] ALLISON HOOD [facility] ([facility] [address] [place] [address] [id number] 5 06/18/2024 13:26:00 06/19/2024 22:53:06 Acute maxillary sinusitis 82374167 J01.00 Discussed use of antibiotic . Take with food.May use Leonardo's nasal inserts and also apply on chest. Push oral fluids. Consider nasal saline rinses.Use tylenol/mo gary for casanova. [id number] Tammy Cummings MD [facility] ([facility]) [address] [place] [id number] 5 09/02/2024 11:33:22 09/03/2024 07:24:40 Low back pain 252281616 M54.51 stable Cervical spondylosis 387 044920 M47.812 severe and stable. The neurosurge on does not recommend surgery at this time as he does not have any radicular symptoms and any surgery would be lengthy. 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 [id number] Tammy Cummings MD [facility] ([facility]) [address] [place] [id number] 5 12/30/2024 10:22:49 12/30/2024 12:16:53 Benign essential hypertension 2083967 I10 stable. Low back pain 004650428 M54.51 stable Cervical spondylosis 387 089010 M47.812 severe and stable. The neurosurge on does not recommend surgery at this time as he does not have any radicular symptoms and any surgery would be lengthy. 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 Pain of le ft shoulder joint [id number] M25.512 [id number] severe left shoulder pain with decreased range of motion. He desires to put off surgery till late fall if he can. Benign pro static hyperplasia [id number] N40.1 R39.11 [id number] ALLISON CARUSO [facility] ([facility]) [address] [place] [address] 03/05/2025 16:17:42 03/05/2025 17:27:50 Wound pain [id number] L76.82 [id number] History of appendectomy [id number] Z90.49 [id number] Tammy Cummings MD [facility] ([facility]) [address] [place] [address] 03/31/2025 15:54:10 03/31/2025 17:36:39 Acute gastritis 46720439 K29.00 [id number] Generalize d osteoarthritis [id number] M15.9 1453 Health Concerns Section Related Observation LastModified by Organization Detai ls LastModified Time None Recorded Concern Status LastModified by Organization Details LastModified Time None Recorded Advance Directives Directive None Recorded Payers Insurance Date Sequence Insurance Name Policy Number Policy Estrada Covered Member ID Estrada Member ID Guarantor Name 03/28/2025 [place] - [facility] (MEDICARE) Magen Juarez [id number] Magen Juarez 03/28/2025 1 [place] Magen Juarez [id number] Magen Juarez 03/28/2025 2 [place] [employer] [place] - PLAN F (MEDICARE SUPPLEMENT) [id number] Magen Juarez [id number] Magen Juarez Notes Date Note Type Note Provider Name and Address Organization Details Recorded Time 06/18/2024 text/html ROS as noted in the HPI walk inPt presents with sinus pressure and casanova the last 3 weeks. Had an MRI completed recently and it shows a cyst and thickening of his sinuses along with cervical neck findings. Pt states he has not taken any meds for his sinuses. ALLISON HOOD [address] [place] [address], [phone], [facility] 06/19/2024 15:56:03 09/02/2024 text/html Back PainReporte d by PatientHPIFor location, patient reportsradiation to buttocks __ (right hip.)but reportslumbar __. For severity, patient reportsworsening. For quality, patient reportsdull. For timing, patient reportschronic. For alleviating factors, patient reportsnone. For aggravating factors, patient reportsambulationandst anding. For associated symptoms, patient reportsno numbnessandno tingling. Hypertension IM/FMReported by PatientHPIFor associated symptoms, patient reportsexertional dyspneabut reportsno shortness of breathandno palpitations. For quality, patient reportshere for check-up. For onset/timing, patient reportsgradual onset. For alleviating factors, patient reportsmedication. Had CT and MRI in [place]. Had an eye appointment in [place] as well, would like to discuss results Tammy Cummings MD [address] [place] [address], [phone], [facility] 09/02/2024 12:59:55 12/30/2024 text/html Back PainReporte d by PatientHPIFor location, patient reportslumbar __. For quality, patient reportsdull. For severity, patient reportsunchanged.Not much change. Tammy Cummings MD [address] [place] [address], [phone], [facility] 12/30/2024 11:45:50 03/31/2025 text/html Reflux/GERDRepor anabel by PatientHPIFor quality, patient reportsburning. For severity, patient reportsno change. For alleviating factors, patient reportsmedication. For associated symptoms, patient reportsno frequent coughing,no globus sensation,no hoarseness,no belching/burping,no nausea, andno vomiting. Tammy Cummings MD [address] [place] [address], [phone], [facility] 03/31/2025 17:32:29
--- OUTSIDE RECORDS SUMMARY | 2025-05-03 09:50 | XMS_ITS | Clinical Summary ---
Author Organization [facility] Address [address] [facility] Attn: [place] [address] Care Team Providers Care Car Starter Name Role Phone Murali Cummings MD Primary Care Provider [phone] Allergies Active Allergy Reactions Criticality Noted Date [...] Encounters Date Type Department Care Team Description 04/29/2025 Telephone [facility] [address] [place] [address] Balbina Reyna PA Back Pain 02/25/2025 Orders Only [facility] [address] [place] [address] Balbina Reyna PA Spondylosis without myelopathy or radiculopathy, lumbar region (Primary Dx); Axial spondyloarthritis (CMS/HCC); Lumbar spondylosis from Last 3 Months Social [...] PM CDT Legal Sex Male 6:34 AM DIRECTOR OF FRONT OFFICE Gender Identity Male 02/07/2023 8:07 PM CDT [...] st Contact Info) Description 05/28/2025 2:40 PM DIRECTOR OF FRONT OFFICE Appointment [facility] [place] [address] [place] [id number] Yaw Vidal MD [address] [address] Health Maintenance Due Date Last Done Comments DTAP/TDAP/TD VACCINES (1 - Tdap) 1965 ZOSTER VACCINE (1 of 2) 1996 RSV VACCINE (60+ or ) (1 - 1-dose 75+ series) 2021 INFLUENZA VACCINE (#1) 2025 , 03/11/2023, 03/23/2022, Additional history exists COVID-19 Vaccine (2024-2 6 season) 2025 04/30/2024, 03/12/2023, 12/15/2021, Additional history exists PNEUMOCOCCAL VACCINE 50+ YEARS Completed 1 06/30/2023, 03/09/2020, 05/24/2012 Medical Devices Implanted Type Area Local City Driver Device Identifier Shelf Expiration Date Model / Serial / Lot Log 4915 - Cement - 1 - Cement Aleks Sgl [id number] Implanted:Qty: 1 on 08/19/2008 Cement Right: Knee [employer] 70-0747-548- 01 / NA / [id number] Cement Palacos Mv Pro 80 Hip Knee Antimicrob [id number] - [id number] Implanted:Qty: 1 on 04/26/2023 by Murali Allen MD at [facility] Cement Left: Knee [employer] [id number] 06/11/2025 [id number] / / [id number] Log 4915 - Tonie Total Knee - 1 - Baseplate Tib Sz 3 6307-01-230 Implanted:Qty: 1 on 08/19/2008 Knee Right: Knee [employer]IE [employer] 6307-01-230 / NA / [id number] Stem Fem Attune [id number] Rev Pressfit 1513-18-060 - [id number] Implanted:Qty: 1 on 04/26/2023 by Murali Allen MD at [facility] Knee Left: Knee [employer] [id number] 04/11/2031 [id number] / / [id number] Augment Fem Attune Post Sz7 4mm Rev 1549-07-001 - [id number] Implanted:Qty: 1 on 04/26/2023 by Murali Allen MD at [facility] Knee Left: Knee [employer] [id number] 03/11/2032 [id number] / / [id number] Sleeve Fem Attune Rev 35mm 151 - [id number] Implanted:Qty: 1 on 04/26/2023 by Murali Allen MD at [facility] Knee Left: Knee [employer] [id number] 12/10/2031 [id number] / / [id number] Insert Tib Attune Aox Rev Sz7 10mm 1517-10-710 - [id number] Implanted:Qty: 1 on 04/26/2023 by Murali Allen MD at [facility] Knee Left: Knee [employer] [id number] 09/10/2023 [id number] / / [id number] Comp Fem Attune Rev Crs Sz 7 Lt Cmntd 1504-40-107 - [id number] Implanted:Qty: 1 on 04/26/2023 by Murali Allen MD at [facility] Knee Left: Knee [employer] [id number] 11/10/2031 1504-40-107 / / [id number] Stem Fem Attune 19b89vt Rev Pressfit 1513-18-060 - [id number] Implanted:Qty: 1 on 04/26/2023 by Murali Allen MD at [facility] Knee Left: Knee [employer] [id number] 07/12/2031 [id number] / / [id number] Sleeve Tib Attune Rev 45mm 1511-11-203 - [id number] Implanted:Qty: 1 on 04/26/2023 by Murali Allen MD at [facility] Knee Left: Knee [employer] [id number] 10/10/2031 1511-11-203 / / [id number] Baseplate Tib Attune Rev Sz7 1506-60-007 - [id number] Implanted:Qty: 1 on 04/26/2023 by Murali Allen MD at [facility] Knee Left: Knee [employer] [id number] 12/10/2031 1506-60-007 / / [id number] Log 4915 - Tonie Total Knee - 1 - Comp Fem Flex Gsm Sz 4-Rt Nkii [id number] Implanted:Qty: 1 on 08/19/2008 Right: Knee [employer] 09-3829-151- 02 / NA / [id number] Log 4915 - Tonie Total Knee - 1 - Ins Prolng Flx Sz -Rt 9mm Jose Guadalupe Nkii [id number] Implanted:Qty: 1 on 08/19/2008 Right: Knee T[employer]IE [employer] 87-8979-868- 09 / NA / [id number] Log 4915 - Tonie Total Knee - 1 - Patella Prolng Flex Sz 1 8mm Nkii [id number] Implanted:Qty: 1 on 08/19/2008 Right: Knee [employer]IE [employer] 18-6279-225- 01 / NA / [id number] Explanted Type Area Local City Driver Device Identifier Shelf Expiration Date Model / Serial / Lot Left Knee Femoral Component Explanted:Qty: 1 on 04/26/2023 by Murali Allen MD at [facility] Left: Knee Left Knee Tibial Component Explanted:Qty: 1 on 04/26/2023 by Murali Allen MD at [facility] Left: Knee Left Knee Polyethylene Component Explanted:Qty: 1 on 04/26/2023 by Murali Allen MD at [facility] Left: Knee Insurance MEDICARE PART A AND B [facility]ANE PLANS (INTERNAL) [facility] Advance Directives For more information, please contact: [phone] * Full Code (Latest Code Status on File) Date Activated Date Inactivated Comments 04/26/2023 11:21 AM 04/27/2023 2:33 PM Care Teams Car Starter Relationship Specialty Start Date End Date Murali Cummings MD [address] [address] PCP - General Family Practice 04/04/14
--- OUTSIDE RECORDS SUMMARY | 2025-05-03 09:50 | XMS_ITS | Encounter Summary ---
Author Organization [facility] Address [address] [place] [address] Care Team Providers Care Side Seam Envelope Machine Operator Name Role Phone Murali Cummings MD Primary Care Provider [phone] Reason for Referral * Outpatient Services (Routine) - Closed Specialty Diagnoses / Procedures Referred By Contac t Referred To Contact Diagnoses Severe LBP Procedures CT LUMBAR SPINE WO CONTRAST Murali Cumminsg MD [address] [address] Phone: tel: fax: [facility] Pre-Registration [place] CALL TO MAKE APPOINTMENT ONLY [address] [place] [address] Phone: tel: fax: Referral ID Status Reason Start Date Expiration Date V isits Requested Visits Authorized [id number] Closed [facility] TO SCHEDULE (SGF) 04/03/2014 05/04/2015 1 1 Encounter Details Date Type Department Care Team (Late st Contact Info) Description 04/03/2014 Ancillary Orders [facility] Pre-Registration [place] CALL TO MAKE APPOINTMENT ONLY [address] [place] [address] Murali Cummings MD [address] [facility] [address] [place] [address] Severe LBP (Primary Dx) Social [...] on file Legal 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 Exam: CT LUMBAR [...] Lumbago documented in this encounter Care Teams Side Seam Envelope Machine Operator Relationship Specialty Start Date End Date Murali Cummings MD [address] [place] [address] PCP - General Family Practice 04/04/14 documented as of this encounter
--- OUTSIDE RECORDS SUMMARY | 2025-05-03 09:50 | XMS_ITS | Patient Health Record ---
Author Organization [facility], [facility] Address [address] [place] [address] Care Team Providers Care Records Management Analyst Name Role Phone Murali Cummings Primary Care Provider JEFFRY Nolan Unavailable [phone] RYAN LOGAN Unavailable [phone] Allergies Allergen (clinical drug ingredient) Drug/Non Drug Allergy documented on EMR Reaction Allergy Type Onset Date Status diclofenac / misoprostol Arthrotec Unknown Drug Allergy Active Results Component Value Reference Range Notes Urinalysis, Routine Reviewed date:05/16/2024 01:52:16 PM Interpretation: Performing Lab: Notes/Report: Urine-Color yellow Appearance clear Glucose - Bilirubin 1+ Ketones - Specific [place] 1.025 Occult Blood 1+ pH 6.0 Urine Protein - Urobilinogen,Semi-Qn - Nitrite, Urine - WBC Esterase trace Urinalysis, Routine Reviewed date:07/08/2024 01:25:38 PM Interpretation: Performing Lab: Notes/Report: Urine-Color yellow Appearance clear Glucose - Bilirubin - Ketones - Specific [place] 1.015 Occult Blood trace pH 6.0 Urine Protein - Urobilinogen,Semi-Qn - Nitrite, Urine - WBC Esterase - MRI Abdomen w/ + w/o Cont--7 [id number] Reviewed date:07/04/2024 01:56:51 PM Interpretation: Performing Lab: [...] tract symptoms due to benign prostatic hypertrophy (20958088687668) Benign prostatic hyperplasia with lower urinary tract symptoms (N40.1) Active confirmed Problem Asymptomatic microscopic hematuria (816264739558974 09) Asymptomatic microscopic hematuria (R31.21) Active confirmed Problem Disorder of kidney and/or ureter (921281091) Left renal mass (N28.89) Active confirmed Problem 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 89 and Asymptomatic microscopic hematuria R31.21 [place], [facility] [address] [facility] [address] [place] [address] 07/08/2024 JEFFRY BUCIO Asymptomatic microscopic hematuria R31.21 and Acquired renal cyst of right kidney N28.1 [place], [facility] [address] [place] [address] 05/22/2024 RYAN LOGAN Assessments Encounter Date Diagnosis (ICD Code) Assessment Notes Treatment Notes Treatment Clinical Notes Section Notes 07/08/2024 Asymptomatic microscopic hematuria (ICD-10 - R31.21) [...] in 1yr with UA, PVR and IPSS 05/16/2024 Asymptomatic microscopic hematuria (ICD-10 - R31.21) Will send urine for cytology. Repeat UA at follow up. If persistent or cytology is abnormal, then he may require complete workup with cystoscopy. 05/16/2024 Left renal mass (ICD-10 - N28.89) Reviewed patient's CT images as well as radiologic report from [facility]. He has a 1.2cm left renal lesion. It is really too small to characterize and there is not obvious enhancement. I offered him MRI of the abdomen versus surveillance CT in 6m. He would like MRI of the abdomen. Will schedule and have him RTC for review. Plan Of Treatment Pending Test Test Name Order Date MRI : Abdomen with and without Contrast [id number] 05/16/2024 Blood Urea Nitrogen (BUN) 05/16/2024 Creatinine Serum 05/16/2024 Next Appt Details Provider Name:JEFFRY COLÓN Yaniv, 07/10/2025 01:15:00 PM, [address] [place], [address], Insurance Providers Payer Name Payer Address Payer Phone Subscriber Number Group Number Insured Name Patient Relationship to Insured Coverage Start Date Coverage End Date [place] [address] [place] [id number] [phone] [id number] Magen Juarez Self - patient is the insured [employer] [facility] [address] [place] [address] [id number] Magen Juarez Self - patient is the [...]
--- OUTSIDE RECORDS SUMMARY | 2025-05-03 09:50 | XMS_ITS | Patient Health Record ---
Author Organization [facility] Address [address] [place] [address] Care Team Providers Care Events Associate Name Role Phone Murali Cummings Primary Care Provider Tam Meeks [phone] Allergies No Known Allergies Reason For Referral No Information Medications Medication SIG (Take, Route, Frequency, Duration) Notes Start Date End Date Status [facility] *Pick strength-form from [facility] for eRX* Active Lisinopril-hydroCHLO ROthiazide 20-12.5 MG Tablet 1 tablet Orally Once a day Active Lisinopril-hydroCHLO ROthiazide *Pick strength-form from [facility] for eRX* Active Benadryl Allergy 25 MG Tablet 1 tablet at bedtime as needed Orally Once a day Active Magnesium 400 MG Tablet 1 capsule with a meal Orally Once a day Active Lipitor *Pick strength-form from [facility] for eRX* Active Hydrocortisone 2.5 % Cream 1 application Externally Twice a day Not-Taking Adult Low Dose Aspirin *Reorder from [facility] for eRx and Interaction Alerts* Active Zinc [...] a day Active Adults Multivitamin *Reorder fro [facility] for eRx and Interaction Alerts* Active Protonix [...] 8 hrs Active Protonix *Pick strength-form from [facility] for eRX* Active Social History Tobacco Use: [...] Notes Problem Long-term current use of antibiotic (010206592) ocean transportation intermediary (current) use of antibiotics (Z79.2) Active confirmed Plan Of Treatment Pending Test Test Name Order Date CBC w\ Auto Diff [id number] 07/27/2022 Comprehensive Metabolic Panel (CMP) 8005 3 07/27/2022 CRP [id number] 07/27/2022 Insurance Providers Payer Name Payer Address Payer Phone Subscriber Number Group Number Insured Name Patient Relationship to Insured Coverage Start Date Coverage End Date [place] [address] [place] [phone] [id number] Magen Juarez Self - patient is the insured [place] [employer] [facility] [address] [place] [phone] [id number] Magen Juarez Self - patient is the [...]
--- OUTSIDE RECORDS SUMMARY | 2025-05-03 09:50 | XMS_ITS | Continuity of Care Document ---
Author Organization [facility] Rachel, LMansoorLKarlene, [facility] ([facility]) Address [address] [facility] [place] [address] Care Team Providers Care Chemical Mixer Name Role Phone TAMMY CUMMINGS Primary Care Provider Unavailabl e Assessment Encounter Date Assessment Date Assessment LastModified by Organization Details LastModified Time 03/05/2025 03/05/2025 Discussed with [facility] general surgery and they will see patient now. [email or web address] Not available 03/06/2025 09:15:01 Plan of Treatment Reminders Order Date Submit Date Provider Last Modified By Organization Details Last Modified Time Details Appointments RECHECK 15 2025 01:00P Yissel Cummings MD Not available Not available Not available Lab None recorded . Referral None recorded . Procedures None recorded . Surgeries None recorded . Imaging None recorded . Medication Orders None recorded . Patient TargetsNo targets recorded. Patient InstructionsNo instructions recorded. Reason for Referral None Reported. 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 5 17:25:28 Low back pain 101531591 Active 2023 LUIS ALBERTO louie, [facility] 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 5 17:25:28 Renal mass 820015736 Active 2023 LUIS ALBERTO louie, [facility] 5 17:25:28 Cervical spondylosi s 492229989 Active 2024 LUIS ALBERTOBianca louie [facility] 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 5 17:25:28 Pain of left shoulder joint 2054637313155 9109 Active 2024 Tammy Cummings MD [address] [place] [address], [phone], [facility] 11:28:45 Benign prostatic hyperplasi a 959992664 Active 2024 Tammy Cummings MD [address] [place] [address], [phone], [facility] 11:44:22 Acute gastritis 36780938 Active 2024 Tammy Cummings MD [address] [place] [address], [phone], [facility] 17:21:33 Generalize d osteoarthr itis 300037962 Active 2024 Tammy Cummings MD [address] [place], [address], [facility] [place] 17:25:24 Problem Notes None recorded. Procedures Surgical History Date Name Laterality Status Provider Name and Address Organization Details Recorded Time 12/31/19 25 Joint Inj Beta-shoulder, hip, knee completed Tammy Cummings MD [address] [place], [address], [facility] [place] 12/30/2024 11:41:03 arthroplasty of left shoulder completed JOSELIN [facility] [place] 06/20/2023 15:05:19 [facility] bilateral [facility] joints [facility] 15:05:30 repair of joint of right hip [facility]23 15:05:43 Imaging Results None recorded. Procedure [...] lisinopri l-hydroch lorothiaz adeel QD 06/20 completed 60172; Recorded 06/02/20 7:05AM by Lizet Pagan (Authori zed through [...] completed Recorded 12/30/19 1:46PM by Luis Alberto Ayala, Office Visit; [...] Updated DateTime 5 165.1 cm 35.8 kg/m2 11378.3 6 g 96 % 66 /min 20 /min 98.2 [degF] 128/68 mm[Hg] DAMASO BEST [facility] 5 16:42:13 Social History Question Answer Notes LastModified by Organizat ion Details LastModified Time Tobacco Smoking Status Never Smoker JOSELIN louie [facility] 06/20/2023 15:11:08 What Was The Date [...] virus, trivalent, preservative 1 completed Not Available [facility] 01/07/2023 02:51:46 Influenza, split virus, trivalent, preservative 8 completed Not Available [facility] 01/07/2023 02:51:46 Influenza, split virus, trivalent, preservative 2 completed Not Available [facility] 01/07/2023 02:51:46 pneumococcal polysaccharide PPV23 2 completed Not Available [facility] 01/07/2023 02:51:47 Influenza, split virus, quadrivalent, preservative 4 completed LUIS ALBERTO louie [facility] 11/01/2023 11:32:50 Influenza, adjuvanted, trivalent, PF 9 completed LUIS ALBERTO AYALA [facility] 11/01/2023 11:32:50 Influenza, high-dose, quadrivalent, PF 3 completed LUIS ALBERTO AYALA [facility] 11/01/2023 11:32:50 Influenza, high-dose, quadrivalent, PF 2 completed LUIS ALBERTO AYALA [facility] 11/01/2023 11:32:50 Influenza, high-dose, quadrivalent, PF 1 completed LUIS ALBERTO AYALA [facility] 11/01/2023 11:32:50 COVID-19, mRNA, LNP-S, PF, 30 mcg/0.3 mL dose 1 completed LUIS ALBERTO AYALA [facility] 11/01/2023 11:32:50 COVID-19, mRNA, LNP-S, PF, 30 mcg/0.3 mL dose 1 completed LUIS ALBERTO AYALA [facility] 11/01/2023 11:32:50 COVID-19, mRNA, LNP-S, PF, 30 mcg/0.3 mL dose 2 completed LUIS ALBERTO AYALA [facility] 11/01/2023 11:32:50 COVID-19, mRNA, LNP-S, PF, 30 mcg/0.3 mL dose 1 completed LUIS ALBERTO AYALA [facility] 11/01/2023 11:32:50 COVID-19, mRNA, LNP-S, PF, 50 mcg/0.5 mL 3 completed LUIS ALBERTO AYALA [facility] 11/01/2023 11:32:50 Pneumococcal conjugate PCV 13 0 completed LUIS ALBERTO louie, [facility] 11/01/2023 11:32:50 Influenza, high-dose, trivalent, PF 6 completed LUIS ALBERTO AYALA null, [facility] 11/01/2023 11:32:50 Influenza, split virus, trivalent, preservative 4 completed LUIS ALBERTO AYALA null, [facility] 11/01/2023 11:32:50 Influenza, split virus, quadrivalent, PF 0 completed LUIS ALBERTO louie, [facility] 11/01/2023 11:32:50 Pneumococcal conjugate PCV20, polysaccharide QOY002 conjugate, adjuvant, PF 4 completed Not Available [facility] 03/31/2025 15:55:33 Influenza, high-dose, trivalent, PF 4 completed Not Available [facility] 03/31/2025 15:55:33 COVID-19, mRNA, LNP-S, PF, 50 mcg/0.5 mL 4 completed Not Available [facility] 03/31/2025 15:55:33 COVID-19, mRNA, LNP-S, PF, 50 mcg/0.5 mL 5 completed Not Available [facility] 03/31/2025 15:55:33 Past Encounters Encounter ID Performer Location Encounter Start Date Encounter Closed Date Diagnosis/Indication Diagnosis SNOMED-CT Code Diagnosis ICD10 Code Diagnosis IMO Codes Diagnosis Note [id number] ALLISON CARUSO [facility] ([facility]) [address] [place] [address] 03/05/2025 16:17:42 03/05/2025 17:27:50 Wound pain 675950507 L76.82 8148693 History of appendectomy 937859857 Z90.49 143296 Health Concerns Section Related Observation LastModified by Organization Detai ls LastModified Time None Recorded Concern Status LastModified by Organization Details LastModified Time None Recorded Payers Encounter Date Sequence Insurance Name Policy Number Policy Estrada Covered Member ID Estrada Member ID Guarantor Name 03/05/2025 1 [place] Magen Juarez [id number] Magen Juarez 03/05/2025 2 [facility] - PLAN F (MEDICARE SUPPLEMENT) [id number] Magen Juarez [id number] Magen Juarez
--- OUTSIDE RECORDS SUMMARY | 2025-05-03 09:50 | XMS_ITS | Encounter Summary ---
Author Organization [facility] Address [address] [place] [address] Care Team Providers Care Bottoming Room Inspector Name Role Phone Murali Cummings MD Primary Care Provider [phone] Reason for Referral * Outpatient Services (Routine) - Closed Specialty Diagnoses / Procedures Referred By Contac t Referred To Contact Diagnoses Thoracic or lumbosacral neuritis or radiculitis, unspecified Procedures XR FLUORO NEEDLE GUIDANCE Fredrick Talbot MD Phone: tel: fax: Referral ID Status Reason Start Date Expiration Date Visits Re quested Visits Authorized [id number] Closed 08/20/2014 09/20/2015 1 1 Encounter Details Date Type Department Care Team (Late st Contact Info) Description 08/20/2014 Ancillary Orders [facility] Pain Management Procedures [place] [address] [place] [address] [place] [address] [facility] [address] [place] [address] Thoracic or lumbosacral neuritis or radiculitis, unspecified [...] on file 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 Exam was auto-finalized. Fredrick Talbot MD DIAGNOSTIC IMAGING ORDERABLES Final Result documented in this encounter Visit Diagnoses Diagnosis Thoracic or lumbosacral neuritis or radiculitis, unspecified- Primary Thoracic or lumbosacral neuritis or radiculitis, unspecified documented in this encounter Care Teams Bottoming Room Inspector Relationship Specialty Start Date End Date Murali Cummings MD [address] [place] [id number] PCP - General Family Practice 04/04/14 documented as of this encounter
[2025-05-03 09:51] VITALS: BP 148/78; PULSE 71; RESP 17; TEMP 36.5; O2SAT 96; BMI 31.6
--- NOTE | 2025-05-03 09:55 | W.ED.BACK ---
HPI - Back Pain/Injury General: Chief Complaint: Back Pain/Injury Stated Complaint: back / rt hip pain Time Seen by Provider: 05/03/25 09:52 History of Present Illness: 79-year-old man with a history of coronary artery disease, obesity, obstructive sleep apnea, hypertension, and history of multiple musculoskeletal surgeries including back surgery, knee replacement, hip replacement and neck surgery who presents to the emergency room with right lower back pain with radiation down his right buttock and some pain in his groin. This is been going on for over a month. He says he has been to chiropractors at [facility]. He cannot get into his doctor though. No saddle numbness, no fecal or urinary retention or incontinence, no focal motor deficit, no sensory deficit. Related Data Home Medications ?Medication ?Instructions ?Recorded ?Confirmed lisinopril 20 1 tab PO DAILY 06/09/20 03/25/25 mg-hydrochlorothiazide 12.5 mg tablet pantoprazole 40 mg tablet,delayed 40 mg PO BID 06/09/20 03/25/25 release ascorbic acid (vitamin C) 1,000 mg 1 g PO Q6H 01/29/24 03/25/25 capsule magnesium oxide 500 mg capsule 500 mg PO DAILY 01/29/24 03/25/25 famotidine 20 mg tablet 20 mg PO BID 01/27/25 03/25/25 glutathione 500 mg capsule 500 mg PO DAILY 03/01/25 03/25/25 zinc sulfate 50 mg zinc (220 mg) 50 mg PO DAILY 03/01/25 03/25/25 tablet Previous Rx's ?Medication ?Instructions ?Recorded aspirin 81 mg tablet,delayed 81 mg PO DAILY #30 tabs 06/09/20 release (Adult Aspirin Regimen) acetaminophen 650 mg 1,300 mg (2 x 650 mg) PO Q6H pain 03/02/25 tablet,extended release (Tylenol 8 5 days #40 tabs Hour) cetirizine 10 mg tablet 10 mg PO DAILY allergy symptoms 7 03/05/25 days #7 tabs sulfamethoxazole 800 1 tab PO BID 5 days #10 tabs 03/05/25 mg-trimethoprim 160 mg tablet (Bactrim DS) hydrocodone 5 mg-acetaminophen 325 1 tab PO Q8H PRN pain #14 tabs 05/03/25 mg tablet polyethylene glycol 3350 17 17 g PO DAILY #510 grams 05/03/25 gram/dose oral powder (Miralax) prednisone 20 mg tablet 60 mg (3 x 20 mg) PO DAILY 5 days 05/03/25 #15 tabs Allergies Allergy/AdvReac Type Severity Reaction Status Date / Time adhesive Allergy ALGY-Redness Verified 03/25/25 08:42 of Skin Arthrotec Allergy Unknown Unknown Uncoded 03/25/25 08:42 Review of Systems Narrative: Constitutional symptoms: Negative except as documented in HPI. Skin symptoms: Negative except as documented in HPI. Eye symptoms: Negative except as documented in HPI. ENMT symptoms: Negative except as documented in HPI. Respiratory symptoms: Negative except as documented in HPI. Cardiovascular symptoms: Negative except as documented in HPI. Gastrointestinal symptoms: Negative except as documented in HPI. Genitourinary symptoms: Negative except as documented in HPI. Musculoskeletal symptoms: Negative except as documented in HPI. Neurologic symptoms: Negative except as documented in HPI. Psychiatric symptoms: Negative except as documented in HPI. Endocrine symptoms: Negative except as documented in HPI. PFS ED PFSH: Medical History (Updated 05/03/25 @ 11:30 by Adelia Dixon MD) Coronary artery disease Obesity Obstructive sleep apnea Hypertension Surgical History (Updated 03/25/25 @ 08:59 by Mart Hamilton MD) History of laparoscopic appendectomy 03/01/25 Dr Hamilton History of neck surgery History of carpal tunnel surgery History of knee replacement Family History Father CAD (coronary artery disease) Mother CAD (coronary artery disease) Social History Smoking and tobacco/nicotine status: never used tobacco/nicotine Alcohol intake: never Special laura needs: No Physical Exam Narrative: EXAM NARRATIVE: General: Alert, no acute distress. Head: Normocephalic Neck: Trachea midline Eye: Extraocular movements are intact. Ears, nose, mouth and throat: Oral mucosa moist Respiratory: Respirations are non-labored Musculoskeletal: Normal ROM Back: no step off, no focal tenderness, some paraspinal muscle tenderness Neurological: Alert and oriented, No focal neurological deficit observed. Psychiatric: Cooperative, appropriate mood & affect. Course Vital Signs: Vital signs: Vital Signs Temperature 97.7 F 05/03/25 09:51 Pulse Rate 71 05/03/25 09:51 Respiratory Rate 17 05/03/25 09:51 Blood Pressure 148/78 05/03/25 09:51 Pulse Oximetry 96 05/03/25 09:51 Oxygen Delivery Me thod Room Air 05/03/25 09:51 MDM - Back Pain/Injury Medical Decision Making Medical decision making Patient's reason for coming to the emergency room: Low back pain Social determinants: Patient is retired and I reviewed the patient's medical record. 79-year-old man with a history of coronary artery disease, obesity, obstructive sleep apnea, hypertension, and history of multiple musculoskeletal surgeries including back surgery, knee replacement, hip replacement and neck surgery I reviewed the patient's current home meds Alternate historians: provides history as well. Differential diagnosis: including but not limited to and based on the above HPI, review of systems and physical exam: Patient has musculoskeletal back pain with no neurologic symptoms. is insistent he does need an x-ray today because of his replaced hip. X-ray of the hip and pelvis: No acute findings. This was reviewed and interpreted by myself the emergency room physician. I also reviewed the radiology report. Assessment of risk: Level of risk: Moderate risk patient. Elderly. Several comorbidities. Hospitalization considerations: No consideration for admission today. Reexamination: Patient remained stable. No increased work of breathing. No altered mental status. No focal motor deficits. Assessment and plan: Sciatica Lumbar radiculopathy ? [place] and Solu-Medrol in the emergency room - Discharged home - Discussed plan with patient. Answered any questions. - Evaluation and treatment of this problem were appropriate in the emergency setting. Labs Radiology Impressions Hip/Pelvis X-Ray 05/03/25 10:03 IMPRESSION: No acute findings. All radiology interpretation(s) finalized by discharge Discharge Plan Discharge Patient Disposition: Home Clinical Impression: Sciatica Condition: Stable Prescriptions: New hydrocodone-acetaminophen 5-325 mg tablet 1 tab PO Q8H PRN (Reason: pain) Qty: 14 0RF Rx Instructions: Take 1/2 to 1 tab every 8 hours as needed for pain prednisone 20 mg tablet 60 mg PO DAILY 5 Days Qty: 15 0RF polyethylene glycol 3350 [Miralax] 17 gram/dose powder 17 g PO DAILY Qty: 510 0RF Rx Instructions: Take 1 scoop daily while taking pain medications. No Action pantoprazole 40 mg tablet,delayed release (DR/EC) 40 mg PO BID lisinopril-hydrochlorothiazide 20-12.5 mg tablet 1 tab PO DAILY aspirin [Adult Aspirin Regimen] 81 mg tablet,delayed release (DR/EC) 81 mg PO DAILY Qty: 30 2RF magnesium oxide 500 mg capsule 500 mg PO DAILY ascorbic acid (vitamin C) 1,000 mg capsule 1 g PO Q6H famotidine 20 mg tablet 20 mg PO BID sulfamethoxazole-trimethoprim [Bactrim DS] 800-160 mg tablet 1 tab PO BID 5 Days Qty: 10 0RF cetirizine 10 mg tablet 10 mg PO DAILY 7 Days Qty: 7 0RF zinc sulfate 50 mg zinc (220 mg) Tablet 50 mg PO DAILY glutathione 500 mg Capsule 500 mg PO DAILY acetaminophen [Tylenol 8 Hour] 650 mg tablet extended release 1,300 mg PO Q6H 5 Days Qty: 40 0RF Discharge Orders: Discharge ED (Routine); Ordered 05/03/25 Ordered By: Adelia Dixon Referrals: Murali Cummings MD [Primary Care Provider, Family Practice] Discharge Diet: Usual diet Discharge Activity: Increase activity as tolerated Patient Instructions: Sciatica (ED), Lumbar Radiculopathy (ED), Opioid Safety, Pain Management, Patient Portal & Evelin Instructions Activity Restrictions/Additional Instructions: Thank you for choosing [facility] for your healthcare needs today. You have been screened and evaluated and felt safe for discharge. Health conditions do change or evolve sometimes and as such it is important that you follow up with your Primary Doctor to be re checked, 3-5 days is a general good time frame for follow up. You are always welcome to return to the ED for re assessment if your symptoms are worsening or you have new concerns Print Language: Amharic Coding Level of Care Code ED [facility] Advisor for Andrew Stern
--- NOTE | 2025-05-03 10:03 | XRR_ITS ---
PROCEDURE INFORMATION: Exam: XR Right Hip Exam date and time: 05/03/2025 10:29 AM Age: 79 years old Clinical indication: Hip pain; Right hip; Additional info: Nontraumatic hip pain TECHNIQUE: Imaging protocol: Radiologic exam of the right hip. Views: 1 view hip with pelvis when performed. COMPARISON: CT abdomen pelvis w con* [id number] 03/01/2025 11:39 AM FINDINGS: Bones/joints: A right hip prosthesis is well seated and well aligned. No fracture noted. Soft tissues: Unremarkable. XR/XR hip RT 2-3V wo/w pel* [id number] IMPRESSION: No acute findings.
[2025-05-03] MEDS: methylPREDNISolone sod succ 125 mg/2 mL INJ IVP (11:45)
[2025-05-03] MEDS: HYDROcodone-acetaminophen 10-325 mg Tablet 1 TAB PO (11:45)
[2025-05-03 11:57] VITALS: BP 131/68; PULSE 63; O2SAT 96
== END 2025-05-03 11:57 | disposition home or self-care (01) ==
PROVIDERS: Emergency Provider Emergency Medicine; PCP Family Medicine
DX: M54.31 Sciatica, right side (principal); Z79.82 Long term (current) use of aspirin; I25.10 Atherosclerotic heart disease of native coronary artery without angina pectoris; I10 Essential (primary) hypertension
CPT/HCPCS: 73502; 96374; 99284; J2919; J9999